=== PATIENT | female | born 1970 | race Caucasian/White ===

== ENCOUNTER 2018-10-19 03:53 | Emergency (ER) | payer OTHER, SELFPAY ==
[2018-10-19 03:55] VITALS: BP 133/88; PULSE 61; RESP 18; TEMP 36.4; O2SAT 97; BMI 19.1
[2018-10-19 03:58] VITALS: RESP 16
--- NOTE | 2018-10-19 05:00 | RAD_ITS ---
HISTORY: patient states her dogs jumped onto right foot, swelling and pain around 5th toe COMPARISON: None FINDINGS: XR right foot 3 views No fracture, dislocation, or bony abnormality. Joint spaces are preserved. Soft tissue swelling of the fifth toe including swelling overlying the fifth MTP joint. No radiopaque foreign body. The plantar arch is maintained. RAD/Foot min 3 Views IMPRESSION: 1. No fracture or acute osseous abnormality. 2. Soft tissue swelling of the fifth toe and fifth MTP joint region at 0537 Reported and signed by: Yonas Smith MD Electronically Signed: Yonas Smith, at 5:36 EDT Tel , Service support ,
--- NOTE | 2018-10-19 05:59 | ED.VISSUMM ---
- ER Visit Summary Date of Service: 10/19/18 Chief Complaint: Right foot pain History of Present Illness: The patient is a 48 F who presents with pain in the right foot. She attributes this to dogs having repetitively stepped in the same spot on her right foot. She also noted some redness between her fourth and fifth toes 3 days ago. She is on Suboxone. She denies injecting anything into her feet. No systemic symptoms such as fevers nausea vomiting. Physical Examination: Afebrile normal vitals There does appear to be an abscess at the right foot between the fourth and fifth digits no drainage mild surrounding erythema able to wiggle her toes without pain no foot tenderness brisk cap refill Test Results: Foot x-ray shows no fracture there is some soft tissue swelling Emergency Department Course and Treatment: Incision and drainage was performed but was very poorly tolerated due to pain. Even just with placing the needle prior to injection of anesthetic the patient complained of severe pain. I was only able to place one half of the cc before she has been stopped. She then states she did have some anesthesia and I was able to make a stab incision with a #11 blade and there was gross purulent drainage. I was able to express most of this however again she asked that I stop due to pain. At this time x-rays were normal she does not have any significant associated cellulitis she is not septic. She will be treated with Keflex and Bactrim and referred to podiatry. I stressed the importance of follow-up and she does understand to return for new or worsening symptoms. Treatment Plan: [] Disposition: Discharge Impression: Foot abscess This note was generated with [employer] dictation software. It may contain incorrect words, spelling, and punctuation that were not noted in review of the chart prior to signing ED Disposition - Plan for ED Patient: Referrals: Abdi Montes [Primary Care Provider] -
--- NOTE | 2018-10-19 06:02 | ED.DEP ---
ED Disposition - Plan for ED Patient: Instructions: ED Abscess IandD Prescriptions: Cephalexin [Keflex] 500 mg PO Q6 #40 cap Smz/Tmp Ds [Bactrim Ds] 1 tab PO BID #14 tab Referrals: Abdi Montes [Primary Care Provider] - Amy Lynn DPM [STAFF PHYSICIAN] -
[2018-10-19 06:19] VITALS: BP 129/89; PULSE 62; RESP 16; O2SAT 98
== END 2018-10-19 06:20 | disposition home or self-care (01) ==
PROVIDERS: Emergency Provider Emergency Medicine; Family Provider Family Medicine; PCP Family Medicine
DX: L02.611 Cutaneous abscess of right foot (principal); Z72.0 Tobacco use
CPT/HCPCS: 10060; 73630; 99282

== ENCOUNTER 2020-04-22 18:21 | Outpatient (RCR) | payer OTHER, SELFPAY | END 2020-04-22 19:00 | disposition home or self-care (01) | LOC: PT 18:21 | PROVIDERS: PCP Family Medicine; Referring Provider Orthopaedic Surgery; Visit Provider Orthopaedic Surgery | DX: S33.5XXD Sprain of ligaments of lumbar spine, subsequent encounter (principal) ==

== ENCOUNTER 2023-03-09 12:38 | Emergency (ER) | payer BC, SELFPAY ==
[2023-03-09 12:40] VITALS: BP 104/66; PULSE 81; RESP 18; TEMP 35.8; O2SAT 100
--- NOTE | 2023-03-09 14:39 | ED.VIS.BACK ---
HPI History of Present Illness Chief Complaint: Back Detail of Chief Complaint: Worsening back pain Informant: patient Onset/Context/Timing Onset: Days Context: Sudden Onset Chronic pain exacerbated by: Movement, and detailed HPI narrative Injury: other (Patient states she got up from the sofa when the pain started) Timing: Continuous Quality: Dull and Aching Location: Lumbar Current Severity: Mild Maximum Severity: Severe Worsened by: improves with Movement, Ambulation, Bending and Lifting Relieved by: Nothing Associated Symptoms Associated Symptoms: - (Patient denies saddle paresthesia or anesthesia. She has had a significant weight loss over the past 30 days, 17 pounds); Negative for Numbness, Tingling, Radiation to Right Leg, Radiation to Left Leg, Fever, Abdominal Pain, Dysuria, Unable to Ambulate, Unable to Transfer, Urinary Retention, Urinary Incontinence, Constipation or Fecal Incontinence Narrative Narrative: Patient is a 52-year-old woman who was a 2 pack/day smoker until 1.5 years ago when she switched to vaping. She started smoking at the age of 14. She presents with acute on chronic back pain. She states she got up from the sofa and began to have severe pain. The pain is located lower back. She denies fever, chills night sweats. She does endorse weight loss. She had a 17 pound weight loss over the past 30 days. She also has noted some lumps on the back of her neck. She denies headache, visual, ocular auditory symptoms. She denies cardiac respiratory symptoms. She has had less bowel movements. She denies change in color of her urine or stool. She states she has no appetite and suspect this is the reason why she has had infrequent bowel movements. She denies recent dental procedure or any type of procedure. Patient is in pain management. She is present on gabapentin and Suboxone. She denies foot drop. Denies buckling of her knees going up or down steps. Prior similar symptoms: No Recent Illness/Hospitalization: No [facility] Medical History (Updated 03/09/23 @ 16:[address] Nemesio Freire MD) Anxiety Home Medications acetaminophen 325 mg tablet (Tylenol) 325 mg PO ONCE PRN 09/01/20 [History Last Taken Unknown] alprazolam 0.5 mg tablet (Xanax) 0.5 mg PO DAILY 09/01/20 [History Last Taken Unknown] buprenorphine HCl 8 mg sublingual tablet 8 mg sublingual DAILY 09/01/20 [History Last Taken Unknown] gabapentin 600 mg tablet 600 mg PO TID 09/01/20 [History Last Taken Unknown] naproxen 500 mg tablet 500 mg PO BID #20 tabs 03/09/23 [Rx Last Taken Unknown] Allergy/AdvReac Type Severity Reaction Status Date / Time NSAIDS (Non-Steroidal Allergy Other Verified 03/09/23 12:39 Anti-Inflamma Opioids - Morphine Analogues AdvReac Other Verified 03/09/23 12:39 Family History Mother Hypertension Myocardial infarction, Onset Age: 76 Father Hypertension Colon cancer, Onset Age: 56 Sister Cancer, Onset Age: 46 unknown Surgical History S/P ALONZO (total abdominal hysterectomy) Tubal ligation status Social History Smoking Status: Current every day smoker tobacco type: cigarettes alcohol intake: never substance use type: marijuana caffeine: Yes what type of physical activity do you participate in: walking seatbelt use: always do you feel safe at home: Yes additional social history: - [place] ROS ROS ED Constitutional Constitutional ED: Reports weight loss; Denies chills, fever(s) or subjective Eyes Eyes: Denies blurry vision, change in vision or diplopia ENT ENT ED: Denies ear pain, rhinorrhea or sore throat Cardiovascular Cardiovascular: Denies chest pain, orthopnea, palpitations, paroxysmal nocturnal dyspnea or racing heartbeat Respiratory/Chest Respiratory/Chest: Denies dyspnea, dyspnea on exertion, orthopnea or paroxysmal nocturnal dyspnea Gastrointestinal Gastrointestinal: Reports constipation; Denies abdominal pain, diarrhea, melena, nausea or vomiting Genitourinary Genitourinary ED: Denies dysuria, hematuria or urinary frequency Musculoskeletal Musculoskeletal: Reports back pain; Denies arthralgias, myalgias or neck pain Integumentary Denies rash Neurologic Neurologic: Denies headache(s) or paresthesias Psychiatric Psychiatric: Denies anxiety Endocrine Endocrinology: Denies cold intolerance or heat intolerance Hematologic/Lymphatic Hematologic/Lymphatic: Denies easy bleeding or easy bruising EXAM Physical Exam Const Vital Signs: 03/09/23 12:40 Temperature 96.4 F L Temperature Source Temporal Pulse Rate 81 Respiratory Rate 18 Blood Pressure 104/66 Blood Pressure Mean 78 Pulse Ox 100 Oxygen Delivery Method Room Air Positive well developed and cachectic Constitutional Narrative: Patient appears ill but not toxic. Does not appear in discomfort. She does experience discomfort with movement of her bed to reposition her for proper back exam. General Appearance ED: well developed and cachectic; Negative for pallor Nutritional Appearance: cachectic HEENT Reports dry mucous membranes HEENT Narrative: Poor dentition. Head is atraumatic normocephalic. Ears are normal. Nares are patent. Posterior pharynx unremarkable. Mouth ED: Yes dry mucous membranes Mouth: dry mucous membranes Eyes PERRL and EOMs intact bilaterally General Eye ED: Negative for pale conjunctiva or scleral icterus Neck No no lymphadenopathy, supple and no JVD Neck Narrative: Patient has an irregular shaped firm hard nontender posterior cervical mass/node. There is no supraclavicular nodes or axillary nodes noted. Patient does not do routine breast exams and has not noted any asymmetry of her breast. Resp normal respiratory effort and clear to auscultation bilaterally Cardio regular rate, regular rhythm, S1 normal heart sound, S2 normal heart sound and no murmurs GI normal to inspection, nondistended, normoactive bowel sounds, soft to palpation, non-tender, non-distended and no masses Back/Spine normal to inspection; Negative for no thoracic nor lumbar tenderness Back/Spine Narrative: Straight leg test on the right causes pain on the left and straight leg test on the left causes pain on the right that is in the sciatic nerve distribution. DTR at the patella ankle are 3+. The reflexes are 3+ in the upper extremity as well. EHL is intact. 5/5 strength plantar dorsiflexion of the foot. Negative clonus Babinski sign. DP and PT pulse are palpable. Patient does have hair on her toes. She has normal sensation over L3, L4, L5 and S1 dermatome. General Back: Negative for CVA tenderness Cervical Spine: Negative for cervical spine tenderness Lumbar Spine / Lower Back: ROM limited Extremity normal to inspection and no clubbing, cyanosis or edema General Extremety ED: Negative for edema General Extremity: Negative for edema Neuro oriented x3 and no sensory deficits noted Sensorium / Orientation: alert Motor Exam: strength 5/5 throughout Deep Tendon Reflexes: Rt Patellar (L4): 3+, Lt Patellar (L4): 3+, Rt Ankle (S1): 3+ and Lt Ankle (S1): 3+ Deep Tendon Reflexes Back: Rt Patellar (L4): 3+, Lt Patellar (L4): 3+, Rt Ankle (S1): 3+ and Lt Ankle (S1): 3+ Plantar Reflex: Downgoing: bilateral Psych mental status grossly normal Skin no rashes or lesions noted and no wounds General Skin Exam: Negative for jaundice or pallor MDM MDM MDM Narrative Medical decision making narrative: With 80-year pack history of smoking unintentional weight loss palpable mass posterior neck on the left side atraumatic back pain concern for malignancy is #1 on the differential. There is a muscular component. Patient has positive crossover test right and left however negative straight leg test right and left. Blood work was obtained which included CBC to assess for anemia and as well as white count differential. Comprehensive metabolic panel to assess alkaline phosphatase, calcium and renal function. ESR was obtained. X-rays were obtained since she has had no x-rays in many years. Presently patient does not have a physician. Because of patient's opiate addiction and Suboxone she was treated with ketorolac for her pain. History & Record Review Additional record(s) reviewed:: Prior outpatient record and Prior ED visit (There was an ER visit 2019 and 2017 for minor issues. Outside record from 2017 was reviewed and was for a preemployment physical.) Lab Data Attestation: I reviewed the patient's lab results. Lab results narrative: Patient has mild anemia with normal indices. White count is normal. Sed rate is less than 1. Competence metabolic panel is normal and specifically calcium and alkaline phosphatase. Labs: Laboratory Results - last 24 hr 03/09/23 15:04 WBC 6.6 RBC 3.73 L Hgb 11.6 L Hct 34.9 L MCV 93.6 MCH 31.1 MCHC 33.2 RDW Std Deviation 43.6 RDW Coeff of Jose 12.6 Plt Count 201 MPV 10.1 Immature Gran % (Auto) 0.300 Neut % (Auto) 67.9 Lymph % (Auto) 23.4 [place] % (Auto) 6.6 Eos % (Auto) 0.9 Baso % (Auto) 0.9 Absolute Neuts (auto) 4.5 Absolute Lymphs (auto) 1.55 Nucleated RBC % 0 ESR < 1 Sodium 136 Potassium 4.0 Chloride 103 Carbon Dioxide 29.0 Anion Gap 4 L BUN 5 L Creatinine 0.76 Est GFR (MDRD) Af Amer 103 Est GFR (MDRD) Non-Af 85 BUN/Creatinine Ratio 6.6 L Glucose 93 Calcium 8.9 Total Bilirubin 0.20 AST 13 L ALT 14 Alkaline Phosphatase 52 Total Protein 6.7 Albumin 3.8 Globulin 2.9 Albumin/Globulin Ratio 1.3 Radiography Chest X-Ray - ED: Read by ED Physician (Three-view x-ray of the LS-spine reveals degenerative changes and specifically L4-5 L5-S1. There is no lytic or blastic lesions noted. There is no spondylolisthesis or spondylosis noted. This was independently reviewed and interpreted by me.) Diagnostic Testing: Clinical Impression(s) from Imaging Studies Lumbar Spine X-Ray 03/09/23 15:18 IMPRESSION: Degenerative changes of the spine, as detailed above. Straightening of the normal lumbar lordosis. Electronically Signed: Freddy Venegas MD at 15:38 EDT , Treatment and Re-Evaluation Narrative: Patient was reassessed at 1645. Patient looks much better. She reports her pain is much better. Will discharge to home on anti-inflammatories and she has no contraindication and is in pain management. She was referred to Dr. Ida Sr since she does not have a physician. Discharge Plan Triage Chief Complaint: Back ED Provider: Nemesio Freire Dx/Rx/DC Orders Clinical Impression: Acute exacerbation of chronic low back pain, Unintentional weight loss of more than 10 pounds in 90 days, DDD (degenerative disc disease), lumbosacral, Posterior cervical lymphadenopathy Instructions: Lymphadenopathy, ED Degenerative Disk Disease Prescriptions: New naproxen 500 mg tablet 500 mg PO BID Qty: 20 0RF No Action buprenorphine HCl 8 mg tablet, sublingual 8 mg SUBLINGUAL DAILY gabapentin 600 mg tablet 600 mg PO TID acetaminophen [Tylenol] 325 mg tablet 325 mg PO ONCE PRN alprazolam [Xanax] 0.5 mg tablet 0.5 mg PO DAILY Stand Alone Forms: ED Work / School Excuse Primary Care Provider: Care Physician,No Primary Referrals: Abdi Montes MD [Non-Staff] - Ida Sr MD [Med Staff - [employer]] - 1-2 Weeks Activity Restrictions/Additional Instructions: You have been referred to Dr. Ida Sr since he did not have a physician. Recommend calling for appointment to further investigate the palpable lymph nodes noted in the back of your neck and to determine the cause of your unintentional weight loss Disposition Disposition: Home, Self Care
[2023-03-09 15:14] LABS: Absolute Lymphocyte Count 1.55 X10^3/uL (0.83-4.51); Absolute Neutrophil Count 4.5 X10^3/uL (2.0-7.7); Basophil# 0.06 X10^3/uL; Basophil% 0.9 % (0-1); Eosinophil# 0.06 X10^3/uL; Eosinophils% 0.9 % (0-5); Hematocrit 34.9 % (37-47); Hemoglobin 11.6 g/dL (12.0-15.0); Lymphocyte # 1.55 X10^3/ul (0.83-4.51); Lymphocyte % 23.4 % (19-41); Mean Corp Hgb Conc 33.2 g/dL (32-36); Mean Corpuscular Hgb 31.1 pg (27.0-32.0); Mean Corpuscular Volume 93.6 fL (81-99); Mean Platelet Vol. 10.1 fl (6.2-12.0); Monocyte# 0.44 X10^3/uL; Monocyte% 6.6 % (0-10); NRBC Flagged by Analyzer 0 % (0-5); Neutrophil % 67.9 % (47-70); Platelet Count 201 K/mm3 (150-450); RBC Distribution Width CV 12.6 % (11.6-14.6); RBC Distribution Width SD 43.6 fl (35.1-43.9); Red Blood Count 3.73 M/mm3 (4.2-5.4); White Blood Count 6.6 K/mm3 (4.4-11.0)
[2023-03-09] MEDS: Ketorolac 15 MG/ML Vial IV (15:16)
--- NOTE | 2023-03-09 15:18 | RAD_ITS ---
STUDY: X-RAY - LUMBAR SPINE REASON FOR EXAM: Female, 52 years old. Atraumatic back pain with significant weight loss TECHNIQUE: 3 view(s) of the lumbar spine were obtained. COMPARISON: None FINDINGS: There is straightening of the normal lumbar lordosis. There is no substantial scoliosis. There is a normal alignment of the vertebrae. Moderate degree of disc space narrowing at the L5-S1 level with the spondylosis. Disc space narrowing at the L4-L5 level. The soft tissue structures are unremarkable. RAD/Lumbar Spine 2 or 3 Views IMPRESSION: Degenerative changes of the spine, as detailed above. Straightening of the normal lumbar lordosis. Electronically Signed: Freddy Venegas MD at 15:38 EDT ,
[2023-03-09 15:28] LABS: Erythrocyte Sedimentation Rate < 1 mm/hr (0-30)
[2023-03-09 15:38] LABS: ALB/GLOB Ratio 1.3 RATIO (0.9-2.4); AST(SGOT) 13 U/L (15-37); Alanine Aminotransfer ALT/SGPT 14 U/L (13-56); Albumin, Serum 3.8 g/dL (3.2-5.0); Alkaline Phosphatase 52 U/L (45-117); Anion Gap 4 (5-15); BUN 5 mg/dL (7-18); BUN/Creat Ratio 6.6 RATIO (10-20); Calcium,Total 8.9 mg/dL (8.5-10.1); Chloride 103 mmol/L (98-107); Creatinine, Serum 0.76 mg/dL (0.55-1.02); EST Glomerular Filtration Rate 85 mL/min (>60); Est Glom Filt Rate - Afr Amer 103 mL/min (>60); Globulin 2.9 g/dL (2.2-4.2); Glucose 93 mg/dL (74-106); Protein, Total 6.7 g/dL (6.4-8.2); Sodium Level 136 mmol/L (136-145)
== END 2023-03-09 17:08 | disposition home or self-care (01) ==
PROVIDERS: Emergency Provider Emergency Medicine; Visit Provider Emergency Medicine
DX: M51.37 Other intervertebral disc degeneration, lumbosacral region (principal); R59.0 Localized enlarged lymph nodes; X58.XXXA Exposure to other specified factors, initial encounter; G89.29 Other chronic pain; R63.4 Abnormal weight loss; F17.290 Nicotine dependence, other tobacco product, uncomplicated
CPT/HCPCS: 72100; 80053; 85025; 85652; 96374; 99283; A4216

== ENCOUNTER → 2023-05-19 | Outpatient (CLI) | payer BC, SELFPAY ==
[2023-05-19 13:18] LABS: T4 Free Direct 0.95 ng/dL (0.76-1.46); Thyroid Stim Hormone (TSH) 0.96 uIU/mL (0.358-3.74)
== END | disposition home or self-care (01) ==
LOC: BIMLAB 09:35
PROVIDERS: PCP Internal Medicine; Referring Provider Internal Medicine; Visit Provider Internal Medicine
DX: Z13.29 Encounter for screening for other suspected endocrine disorder (principal)
CPT/HCPCS: 36415; 84439; 84443

== ENCOUNTER 2023-06-16 16:17 | Emergency (ER) | payer BC, SELFPAY ==
[2023-06-16 16:18] VITALS: BP 100/58; PULSE 60; RESP 12; TEMP 35.7; O2SAT 95; BMI 17.9
--- NOTE | 2023-06-16 16:50 | EX.ED.DYSGE1 ---
HPI <DOTTIE Tenorio - Last Filed: 06/16/23 19:04> History of Present Illness Chief Complaint: Lower Extremity Injury Narrative Narrative: Patient is a 52-year-old female with history of chronic back pain, tobacco use who presents to the emergency department with ongoing pain to the left foot. Patient states she wears steel toed boots, she has been seeing a switchboard inspector Dr. Solis. There has been concerns about vascular insufficiency to this foot. Patient is been having some color change in her toes. She is not diabetic. She states that she is been working quite a bit and has been having worsening pain to her left foot PFSH <DOTTIE Tenorio - Last Filed: 06/16/23 19:04> [facility] Medical History (Updated 06/16/23 @ 19:00 by DOTTIE Tenorio) Acute arthritis Allergies Anxiety Back problem Drug abuse Hives Irritable bowel Lumbar radiculopathy Rheumatoid arthritis Screening for thyroid disorder Ulcer of abdomen wall Home Medications gabapentin 600 mg tablet 600 mg PO TID 09/01/20 [History Last Taken Unknown] buprenorphine 8 mg-naloxone 2 mg sublingual film (Suboxone) 2 film buccal Q24H 05/19/23 [History Last Taken Unknown] clopidogrel 75 mg tablet (Plavix) 75 mg PO DAILY #30 tabs 06/16/23 [Rx Last Taken Unknown] rosuvastatin 10 mg tablet 10 mg PO DAILY #30 tabs 06/16/23 [Rx Last Taken Unknown] Allergy/AdvReac Type Severity Reaction Status Date / Time animal dander Allergy Mild runny nose Verified 06/16/23 16:18 NSAIDS (Non-Steroidal Allergy Other Verified 06/16/23 16:18 Anti-Inflamma Opioids - Morphine Analogues AdvReac Other Verified 06/16/23 16:18 Family History Mother Hypertension Myocardial infarction, Onset Age: 76 Asthma Allergies Cancer Kidney disease Arthritis Father Hypertension Colon cancer, Onset Age: 56 Alcoholism Arthritis Cancer Sister Cancer, Onset Age: 46 unknown Arthritis Aunt Auto immune neutropenia Bleeding disorder Cancer Grandfather Heart disease Surgical History S/P ALONZO (total abdominal hysterectomy) Tubal ligation status Social History Smoking Status: Current every day smoker tobacco type: cigarettes alcohol intake: current substance use type: marijuana caffeine: Yes what type of physical activity do you participate in: walking seatbelt use: always do you feel safe at home: Yes additional social history: - [place] [facility] <DOTTIE Tenorio - Last Filed: 06/16/23 19:04> ROS ED ROS Narrative Constitutional: Negative for fever, chills, weight loss, weakness Eyes: Negative for vision loss, vision change, double vision ENT: Negative for any sore throat, ear pain, congestion Cardiovascular: Negative for any chest pain, tightness, palpitations Respiratory: Negative for any cough, sputum production, hemoptysis, dyspnea, dyspnea on exertion, orthopnea Gastrointestinal: Negative for any abdominal pain, nausea, vomiting, diarrhea, constipation, blood in stool, blood in vomit : Negative for any urinary frequency, dysuria, retention, blood in urine Muscle skeletal: Negative for any myalgias, arthralgias, neck pain, back pain. Positive for left foot pain Neurological: Negative for any headache, syncope, numbness or tingling, dizziness Skin: Negative for any rashes, lumps, itching, abrasions, lacerations Psychiatric: Negative for any depression, anxiety, stress, suicidal ideation, homicidal ideation Hematologic: Negative for any easy bruising, excessive bruising, easy bleeding Allergies: Negative for any eczema, hives, rash EXAM <DOTTIE Tenorio - Last Filed: 06/16/23 19:04> Physical Exam Narrative Exam Narrative: Vital signs reviewed. HEET: Head normocephalic atraumatic, TMs clear bilaterally. Posterior pharynx is clear, moist mucous membranes. Nares clear bilaterally. Neck: Supple with no lymphadenopathy or tenderness. No signs of meningismus. Cardiac: Regular rate and rhythm no murmurs gallops or rubs, equal peripheral pulses bilaterally. Respiratory: Lungs clear to auscultation bilaterally. No chest tenderness. Abdomen: Soft, nontender, nondistended. No abdominal bruit or pulsatile masses. No hepatosplenomegaly Extremities: No peripheral edema, no signs of gross trauma or deformity. Active full range of motion of all extremities. Patient has palpable pulses to both pedal posttibial. I was also able to confirm them with the Doppler. Patient's fourth toe on the left foot does appear to be ecchymotic. The entire foot is warm to the touch, there is no signs or symptoms of cellulitis. Neuro: Cranial nerves II through XII intact, no focal neurological deficits. Skin: Clean dry and intact with no rash, purpura, petechiae, vesicles or pustules. Backs/flank: No CVA tenderness, no midline spinal tenderness, no deformity. Psych: Normal mood and affect. No SI, HI or acute psychosis. Const Vital Signs: 06/16/23 16:18 Temperature 96.2 F L Temperature Source Temporal Pulse Rate 60 Respiratory Rate 12 Blood Pressure 100/58 L Blood Pressure Mean 72 Pulse Ox 95 Oxygen Delivery Method Room Air Positive well nourished and well developed General Appearance ED: well developed <Dr. Estefani Ceballos DO - Last Filed: 06/16/23 22:48> Physical Exam Const Vital Signs: 06/16/23 16:18 Temperature 96.2 F L Temperature Source Temporal Pulse Rate 60 Respiratory Rate 12 Blood Pressure 100/58 L Blood Pressure Mean 72 Pulse Ox 95 Oxygen Delivery Method Room Air MDM <DOTTIE Tenorio - Last Filed: 06/16/23 19:04> [facility] Lab Data Labs: Laboratory Results - last 24 hr 06/16/23 17:25 WBC 8.6 RBC 4.00 L Hgb 12.3 Hct 38.6 MCV 96.5 MCH 30.8 MCHC 31.9 L RDW Std Deviation 44.3 H RDW Coeff of Jose 12.6 Plt Count 212 MPV 9.5 Immature Gran % (Auto) 0.200 Neut % (Auto) 64.5 Lymph % (Auto) 23.4 Faulk % (Auto) 9.0 Eos % (Auto) 2.0 Baso % (Auto) 0.9 Absolute Neuts (auto) 5.5 Absolute Lymphs (auto) 2.01 Nucleated RBC % 0 Sodium 138 Potassium 4.4 Chloride 105 Carbon Dioxide 32.0 Anion Gap 1 L BUN 8 Creatinine 0.80 Estim Creat Clear Calc 69.61 Est GFR (MDRD) Af Amer 96 Est GFR (MDRD) Non-Af 80 BUN/Creatinine Ratio 10.0 Glucose 92 Calcium 8.5 Radiography Diagnostic Testing: Clinical Impression(s) from Imaging Studies Foot X-Ray 06/16/23 17:15 IMPRESSION: Normal x-ray examination of the foot. Electronically Signed: Conrado Fry MD at 17:44 EST , Abdomen/Pelvis CTA 06/16/23 17:40 IMPRESSION: Moderate stenosis distal aorta otherwise negative CTA abdomen and pelvis and legs. Electronically Signed: Conrado Fry MD at 18:43 EST , Treatment and Re-Evaluation :: Patient appears generally well, patient appears nontoxic, vital signs are stable. Patient presents to the emergency department left-sided foot pain, concern for color change in her toes. Differential diagnosis includes vascular insufficiency, fractured toe, cellulitis. Patient's foot is warm to the touch, there is no evidence of any trauma. Patient does have some color change to the left fourth toe. I was able to feel pulses both to the pedal as well as posttibial. The foot is warm, no evidence of discoloration. Patient will receive a CTA of the lower extremities with runoffs. As well as a foot x-ray. All radiologic examinations were read, reviewed by the emergency department attending. From these reads, a plan of care will be put in place. Patient's x-ray of the left foot shows no acute process. Patient's laboratory values showed normal CBC, patient's chemistries were unremarkable. Patient's CTA of the abdomen pelvis with runoffs shows moderate stenosis distal aorta. I did speak with vascular regarding this. Recommendation is to place the patient on Plavix, baby aspirin, a statin, the patient will then follow-up in the next couple weeks. I will send the patient's chart to vascular. I spoke with the patient at length, she will try to decrease her tobacco use. Patient is stable for discharge <Dr. Estefani Ceballos, DO - Last Filed: 06/16/23 22:48> [facility] Narrative Medical decision making narrative: I have personally performed a face to face assessment of the patient and have reviewed the JOVANA Note. I performed a substantive portion of the visit including all aspects of the following. My murray findings include: History is [patient presents with pain to her left foot and discoloration of her fourth and fifth toes. Patient tells me that she initially noticed discoloration to her fifth toe this last summer. She works at [employer] and wears steel toed shoes. She apparently went to emergency room in [place] and was told that it was just bruised. Patient states that a couple weeks ago the fourth toe started turning purple also. Patient saw switchboard inspector who apparently was given to give her another referral because he was worried about a blockage in her leg and wanted to order a CT scan of her leg. Patient having a lot of discomfort to her foot. Patient was a smoker but quit 2 years ago. Patient continues to vape.] Exam is [ABHAY ROSENBAUM. Cranial nerves II through XII grossly intact. TMs clear. Mucous membranes moist. No adenopathy. Cardiovascular-regular rate and rhythm without murmur or ectopy Lungs-clear to auscultation, chest wall stable without crepitus or subcu emphysema Abdomen-normoactive bowel sounds, soft, nontender, no rebound or rigidity, no peritoneal signs. Extremities-intact ?4. Left foot-patient has normal dorsal pedal and posterior tibial pulses. Patient has normal popliteal pulses. The fourth toe is ecchymotic and discolored and tender to palpation. Patient also has some erythema of the fifth toe. Patient has tenderness to the MTP joints diffusely in the pad of the foot. Cap refill is less than 3 seconds.] Medical Decison Making [patient had CTA of abdomen pelvis with runoffs and basic labs. CTA shows moderate stenosis of the aorta and mild stenosis of the left iliac artery. No stenosis noted in the legs. We discussed case with vascular surgeon on-call Dr. Cummings who asked that we start patient on Plavix as well as aspirin and a statin. He would be happy to see patient in follow-up as an outpatient.] Other additions or changes: [None] Lab Data Labs: Laboratory Results - last 24 hr 06/16/23 17:25 WBC 8.6 RBC 4.00 L Hgb 12.3 Hct 38.6 MCV 96.5 MCH 30.8 MCHC 31.9 L RDW Std Deviation 44.3 H RDW Coeff of Jose 12.6 Plt Count 212 MPV 9.5 Immature Gran % (Auto) 0.200 Neut % (Auto) 64.5 Lymph % (Auto) 23.4 Faulk % (Auto) 9.0 Eos % (Auto) 2.0 Baso % (Auto) 0.9 Absolute Neuts (auto) 5.5 Absolute Lymphs (auto) 2.01 Nucleated RBC % 0 Sodium 138 Potassium 4.4 Chloride 105 Carbon Dioxide 32.0 Anion Gap 1 L BUN 8 Creatinine 0.80 Estim Creat Clear Calc 69.61 Est GFR (MDRD) Af Amer 96 Est GFR (MDRD) Non-Af 80 BUN/Creatinine Ratio 10.0 Glucose 92 Calcium 8.5 Radiography Diagnostic Testing: Clinical Impression(s) from Imaging Studies Foot X-Ray 06/16/23 17:15 IMPRESSION: Normal x-ray examination of the foot. Electronically Signed: Conrado Fry MD at 17:44 EST Reading Location ID and State: [address] [place] [address] Tel , Service support , Abdomen/Pelvis CTA 06/16/23 17:40 IMPRESSION: Moderate stenosis distal aorta otherwise negative CTA abdomen and pelvis and legs. Electronically Signed: Conrado Fry MD at 18:43 EST Reading Location ID and State: [address] [place] [address] Tel , Service support , Discharge Plan Triage Chief Complaint: Lower Extremity Injury ED Midlevel Provider: Corky Plummer ED Provider: Estefani Ceballos Dx/Rx/DC Orders Clinical Impression: Acute foot pain, Aortic stenosis, Arterial vascular disease Instructions: Quitting Smoking, Aortic Stenosis, Medicines for Heart Disease Prescriptions: New clopidogrel [Plavix] 75 mg tablet 75 mg PO DAILY Qty: 30 2RF rosuvastatin 10 mg tablet 10 mg PO DAILY Qty: 30 2RF No Action gabapentin 600 mg tablet 600 mg PO TID buprenorphine-naloxone [Suboxone] 8-2 mg film 2 film buccal Q24H Rx Instructions: place 1 film on inside of (each) cheek Stand Alone Forms: ED Work / School Excuse Primary Care Provider: Julisa Johnson Referrals: Julisa Johnson MD [Primary Care Provider] - Naveen Cummings MD [Med Staff - Active Staff] - Activity Restrictions/Additional Instructions: Along with the 2 prescriptions, you will also take 81 mg aspirin that you are getting [id number]. Follow-up with vascular. You have his information Disposition Disposition: Home, Self Care Discharge Date/Time: 06/16/23 19:18
--- NOTE | 2023-06-16 17:15 | RAD_ITS ---
STUDY: X-RAY - LEFT FOOT CLINICAL: Female, 52 years old. foot pain TECHNIQUE: 3 view(s) of the foot. COMPARISON: None. FINDINGS: Normal talus, calcaneus, and tarsal bones. Normal visualized subtalar, talonavicular, calcaneocuboid, tarsal and tarsometatarsal articulations. Normal metatarsi. Normal metatarsophalangeal joint of the great toe. Normal tibial and fibular sesamoid bones. Normal interphalangeal joint of the great toe. Normal phalanges of the great toe. Normal second through fifth metatarsophalangeal joints. Normal interphalangeal joints and phalanges of the lesser toes. The soft tissue structures are unremarkable. RAD/Foot min 3 Views IMPRESSION: Normal x-ray examination of the foot. Electronically Signed: Conrado Fry MD at 17:44 EST ,
[2023-06-16 17:34] LABS: Absolute Lymphocyte Count 2.01 X10^3/uL (0.83-4.51); Absolute Neutrophil Count 5.5 X10^3/uL (2.0-7.7); Basophil# 0.08 X10^3/uL; Basophil% 0.9 % (0-1); Eosinophil# 0.17 X10^3/uL; Hematocrit 38.6 % (37-47); Hemoglobin 12.3 g/dL (12.0-15.0); Lymphocyte # 2.01 X10^3/ul (0.83-4.51); Lymphocyte % 23.4 % (19-41); Mean Corp Hgb Conc 31.9 g/dL (32-36); Mean Corpuscular Hgb 30.8 pg (27.0-32.0); Mean Corpuscular Volume 96.5 fL (81-99); Mean Platelet Vol. 9.5 fl (6.2-12.0); Monocyte# 0.77 X10^3/uL; NRBC Flagged by Analyzer 0 % (0-5); Neutrophil # 5.53 X10^3/uL (2.7-7.7); Neutrophil % 64.5 % (47-70); Platelet Count 212 K/mm3 (150-450); RBC Distribution Width CV 12.6 % (11.6-14.6); RBC Distribution Width SD 44.3 fl (35.1-43.9); White Blood Count 8.6 K/mm3 (4.4-11.0)
--- NOTE | 2023-06-16 17:40 | CT_ITS ---
STUDY: CTA OF THE ABDOMINAL AORTA AND BILATERAL LOWER EXTREMITIES REASON FOR EXAM: Female, 52 years old. Leg pain RADIATION DOSAGE (If Supplied By Facility): CTDIvol = ( 8.42 ) mGy, DLP = ( 915.58 ) mGycm TECHNIQUE: Axial CT angiography multi-detector data acquisition was obtained from the diaphragm to the feet following intravenous administration of IV 100mL Isovue-370. Axial images and MIP images were reconstructed from the axial data set. Post-processing of the angiographic images was performed, with multiplanar reformation and 3D reconstruction. Individualized dose optimization techniques were used for this CT. TECHNICAL QUALITY: Good COMPARISON: None. Descriptors of Narrowing: None (0%) Mild (< 50%) Moderate (50-70%) Severe (70-90%) Subtotal/Total Occlusion (90-100%) Non-Evaluable (technically non-diagnostic FINDINGS: Solid and hollow viscus normal. Abdominal aorta: Mixed plaque causes moderate stenosis of the distal aorta and mild stenosis at the origin of the left common iliac artery. Celiac and superior mesenteric arteries: No demonstrated narrowing. Anatomic variant noted. Inferior mesenteric artery: Moderate stenosis at the origin. Right renal artery(arteries): No demonstrated narrowing. Left renal artery(arteries): No demonstrated narrowing. Right common iliac artery: No demonstrated narrowing. Right external iliac artery: No demonstrated narrowing. Right internal iliac artery: No demonstrated narrowing. Left common iliac artery: No demonstrated narrowing. Left external iliac artery: No demonstrated narrowing. Left internal iliac artery: No demonstrated narrowing. RIGHT LOWER EXTREMITY Right common femoral artery: No demonstrated narrowing. Right profundus femoris: No demonstrated narrowing. Right superficial femoral: No demonstrated narrowing. Right popliteal artery: No demonstrated narrowing. Right tibioperoneal trunk: No demonstrated narrowing. Right anterior tibial artery: No demonstrated narrowing. Right posterior tibial artery: No demonstrated narrowing. Right peroneal artery: No demonstrated narrowing. LEFT LOWER EXTREMITY Left common femoral artery: No demonstrated narrowing. Left profundus femoris: No demonstrated narrowing. Left superficial femoral: No demonstrated narrowing. Left popliteal artery: No demonstrated narrowing. Left tibioperoneal trunk: No demonstrated narrowing. Left anterior tibial artery: No demonstrated narrowing. Left posterior tibial artery: No demonstrated narrowing. Left peroneal artery: No demonstrated narrowing. CT/CTA Abd w/Runoff W/WO Contrast IMPRESSION: Moderate stenosis distal aorta otherwise negative CTA abdomen and pelvis and legs. Electronically Signed: Conrado Fry MD at 18:43 EST ,
[2023-06-16 17:52] LABS: Anion Gap 1 (5-15); BUN 8 mg/dL (7-18); Calcium,Total 8.5 mg/dL (8.5-10.1); Chloride 105 mmol/L (98-107); EST Glomerular Filtration Rate 80 mL/min (>60); Est Glom Filt Rate - Afr Amer 96 mL/min (>60); Estimated Creatinine Clearance 69.61 ml/min; Glucose 92 mg/dL (74-106); Potassium 4.4 mmol/L (3.5-5.1); Sodium Level 138 mmol/L (136-145)
[2023-06-16] MEDS: Aspirin 81 MG TAB.CHEW PO (19:12)
[2023-06-16] MEDS: Clopidogrel Bisulfate 75 MG Tablet PO (19:12)
== END 2023-06-16 19:18 | disposition home or self-care (01) ==
PROVIDERS: Nurse Practitioner; Emergency Provider Emergency Medicine; PCP Internal Medicine; Visit Provider Emergency Medicine
DX: I73.9 Peripheral vascular disease, unspecified (principal); M06.9 Rheumatoid arthritis, unspecified; M79.672 Pain in left foot; I35.0 Nonrheumatic aortic (valve) stenosis; F17.210 Nicotine dependence, cigarettes, uncomplicated; F12.90 Cannabis use, unspecified, uncomplicated; G89.29 Other chronic pain; M54.9 Dorsalgia, unspecified; M19.90 Unspecified osteoarthritis, unspecified site; F41.9 Anxiety disorder, unspecified; K58.9 Irritable bowel syndrome, unspecified; Z79.899 Other long term (current) drug therapy
CPT/HCPCS: 73630; 75635; 80048; 85025; 99284; Q9967; A4216

== ENCOUNTER → 2023-06-29 | Outpatient (CLI) | payer BC, SELFPAY ==
--- NOTE | 2023-06-29 13:58 | ART_ITS ---
Reason For Study: PVD Procedure A bilateral lower extremity continuous wave Doppler with analog waveform analysis,segmental pressures,and ankle brachial indexes without exercise. Left Segmental Pressures Left brachial= 121mmHg. Left thigh = 102mmHg. Left calf = 120mmHg. Left posterior tibial artery = 103mmHg. Left dorsalis pedis artery = 112mmHg. Left digit = 88 mmHg. The left posterior tibial artery waveforms are biphasic. The left dorsalis pedis waveforms are biphasic. Right Segmental Pressures Right brachial= 122mmHg. Right thigh = 104mmHg. Right calf = 115mmHg. Right posterior tibial artery = 100mmHg. Right dorsalis pedis artery = 107mmHg. Right digit = 81 mmHg. The right posterior tibial artery waveforms are biphasic. The right dorsalis pedis waveforms are monophasic. Indices The right ankle brachial index by the posterior tibial artery is 0.82. The right ankle brachial index by the dorsalis pedis is 0.88. The right digital-brachial index is 0.66. The left ankle brachial index by the posterior tibial artery is 0.84. The left ankle brachial index by the dorsalis pedis is 0.92. The left digital-brachial index is 0.72. VL/Lower Ext Art Exam w/o Exercis Interpretation Summary Right AJAY 0.88, moderate arterial insufficiency. Doppler/PVR waveforms and segm ental pressures reveal [id number] femoral disease Left AJAY 0.92, mild arterial insufficiency. Doppler/PVR waveforms and segmental pressures reveal [id number] femoral disease Ordering Physician: Louie Solis Referring Physician: Julisa Johnson Performed By: aWyne Denny RVT
--- NOTE | 2023-06-29 13:58 | VDLE_ITS ---
Reason For Study: PVD RIGHT LEFT GSV is normal. GSV is normal. CFV is compressible, spontaneous, phasic, CFV is compressible, spontaneous, phasic, competent and demonstrates normal competent, and demonstrates normal augmentation. augmentation. FV is compressible, spontaneous, phasic, FV is compressible, spontaneous, phasic, competent and demonstrates normal competent and demonstrates normal augmentation. augmentation. POP V is compressible, spontaneous, phasic, POP V is compressible, spontaneous, phasic, competent and demonstrates normal competent and demonstrates normal augmentation. augmentation. T/P Trunk is compressible. T/P Trunk is compressible. PTV is compressible. PTV is compressible. RT PerV is compressible. LT PerV is compressible. Procedure This is a venous duplex using B-mode, color flow and spectral Doppler. Exam performed in department. The exam was diagnostic. VL/Venous Duplex US - Carlos Extrem Interpretation Summary Deep veins of the bilateral lower extremities are patent and compressible segme ntally. There is no evidence of bilateral lower extremity deep vein thrombosis. The bilateral great saphenous veins appear patent and compressible segmentally. Ordering Physician: Louie Solis Referring Physician: Julisa Johnson Performed By: Wayne Denny RVT
--- OUTSIDE RECORDS SUMMARY | 2023-06-29 14:19 | XMS RPT_ITS | CCD ---
Author Name Unknown Address [address] [place] [address] Organization [facility] Care Team Providers Care Salon Assistant Name Role Phone Buzz Montes Unavailable [phone] Tiffanie Beasley Unavailable Unavail able Buzz Montes Unavailable Unavailable Buzz Montes Unavailable Unavailable BUZZ MONTES Unavailable Unavailable DONTAE RANKIN Unavailable Unavailable DONTAE RANKIN Unavailable Unavailable BUZZ MONTES Unavailable Unavailable Buzz Montes Primary Care Provider Tiffanie Beasley Unavailable Unavail able Tiffanie Beasley Unavailable Tiffanie Beasley Unavailable [phone] Angi Schmidt Primary Care Provider Tiffanie Beasley Unavailable ANGI SCHMIDT Attending Unavailable SPRING, ANGI MTaylor Primary Care Unavailable SPRING, ANGI M. Referring Unavailable SPRING, ANGI M. Admitting Unavailable SPRING, ANGI MTaylor Primary Care Unavailable ABHAY KEYES Attending Unavail able SPRING, ANGI MTaylor Attending Unavailable SPRING, ANGI MTaylor Primary Care Unavailable SPRING, ANGI MTaylor Attending Unavailable SPRING, ANGI M. Primary Care Unavailable SPRING, ANGI M. Primary Care Unavailable SPRING, ANGI MTaylor Attending Unavailable SPRING, ANGI MTaylor Attending Unavailable SPRING, ANGI M. Primary Care Unavailable SPRING, AGNI MTaylor Attending Unavailable SPRING, ANGI M. Primary Care Unavailable SPRING, ANGI MTaylor Primary Care Unavailable SPRING, ANGI MTaylor Referring Unavailable SPRINGANGI Admitting Unavailable ZACHARY CHIN Attending Unavailable ANGI SCHMIDT Primary Care Unavailable ANGI SCHMIDT Attending Unavailable SPRINGANGI Primary Care Unavailable CHARLETTE CESPEDES Attending Unavailable Spring, Angi Trevizo Primary Care Provider Miranda Jensen PA-C Primary Care Provider U TIFFANIE Ramirez Referring Unavail able NO, PHYSICIAN Primary Care Unavailable TIFFANIE BEASLEY Attending Unavail able NO, PHYSICIAN Primary Care Unavailable TIFFANIE BEASLEY Admitting Unavail able YUMIKO WHITE Attending Unavailable Allergies Allergy Classification Reported Allergen(s) Allergy Type Date of Onset Reaction(s) Facility (14 sources) NSAIDs; Translations: [NSAIDS (NON-STEROIDAL ANTI-INFLAMMATOR Y DRUG)] Propensity to adverse reactions to drug 9 [facility] (14 sources) Opioids - Morphine Analogues; Translations: [OPIOIDS - MORPHINE ANALOGUES] Propensity to adverse reactions to drug 9 [facility] (14 sources) venlafaxine; Translations: [VENLAFAXINE] Drug Allergy 0 [facility] (4 sources) NSAIDs Propensity to adverse reactions to drug 9 [facility] Medications Current Medications Medication Drug Class(es) Dates Sig (Normalized) Sig (Original) ALPRAZolam 0.5 mg disintegrating oral tablet (6 sources) Benzodiazepine Start: 12-25-2020 take 1 tablet by mouth once daily as needed for anxiety alprazolam 0.5 MG Tab Dispersible Indications: Opioid dependence in remission Take 1 tablet by mouth daily as needed for Anxiety. 30 tablet 1 12/25/2020 Active Completed/Discontinued Medications Medication Drug Class(es) Dates Sig (Normalized) Sig (Original) amoxicillin 875 mg / clavulanate 125 mg oral tablet (2 sources) Penicillin-class Antibacterial Start: 11-07-2019 End: 11-15-2019 take 1 tablet by mouth twice daily amoxicillin-clavul anate (AUGMENTIN) 875-125 mg per tablet Indications: Gingivitis, acute Take 1 (one) tablet by mouth 2 (two) times a day . 20 tablet 0 11/07/2019 11/15/2019 Discontinued buprenorphine 8 mg sublingual tablet (20 sources) Partial Opioid Agonist Start: 08-23-2021 End: 12-16-2021 take 1 tablet under the tongue twice daily, then take 2 tablets under the tongue once buprenorphine 8 MG sublingual tablet Indications: Opioid dependence in remission Place 1 tablet under tongue 2 times daily. 2 extra days due to vacation 60 tablet 0 10/18/2021 11/16/2021 Discontinued (Reorder) Problems Active Problems Problem Classification Problem Date Documented Da te Episodic/Chronic Anxiety disorders (3 sources) Anxiety; Translations: [Depression with anxiety] Onset: 7 11-03-2016 Chronic Esophageal disorders (20 sources) Gastroesophageal reflux disease; Translations: [Gastroesophageal reflux disease without esophagitis] Onset: 8 11-03-2016 Chronic Intestinal infection (1 source) Diarrhea of presumed infectious origin; Translations: [Diarrhea of presumed infectious origin] Episodic Medical examination/evaluation (2 sources) Encounter for general adult medical examination without abnormal findings; Translations: [Encounter for general adult medical examination without abnormal findings] Onset: 8 Episodic Mood disorders (20 sources) Mixed anxiety and depressive disorder; Translations: [Depression with anxiety] Onset: 7 11-03-2016 Chronic Other gastrointestinal disorders (1 source) Alteration in bowel elimination; Translations: [Change in bowel habit] Episodic Other lower respiratory disease (1 source) Chronic cough; Translations: [Chronic cough] Episodic Other nervous system disorders (2 sources) Paresthesia of lower extremity; Translations: [Numbness and tingling of both lower extremities] Episodic Other nutritional; endocrine; and metabolic disorders (2 sources) Abnormal weight loss; Translations: [Abnormal weight loss] Onset: 9 Episodic Other upper respiratory infections (20 sources) Chronic sinusitis; Translations: [Chronic sinusitis] Onset: 7 11-03-2016 Chronic Residual codes; unclassified (1 source) Needs influenza immunization; Translations: [Need for influenza vaccination] Episodic Residual codes; unclassified (1 source) Pain; Translations: [Pain] Episodic Screening or history of mental health and substance abuse (20 sources) Nicotine dependence; Translations: [Nicotine dependence] Onset: 7 11-03-2016 Chronic Spondylosis; intervertebral disc disorders; other back problems (20 sources) Displacement of lumbar intervertebral disc without myelopathy; Translations: [Degeneration of lumbar intervertebral disc] Onset: 1 11-03-2016 Chronic Spondylosis; intervertebral disc disorders; other back problems (20 sources) Backache; Translations: [Chronic low back pain] Onset: 7 Resolved: 9 11-03-2016 Episodic Substance-related disorders (20 sources) Tobacco dependence syndrome; Translations: [Opioid dependence in remission] Onset: 0 11-07-2019 Chronic Superficial injury; contusion (2 sources) Contusion of left lesser toe(s) without damage to nail, initial encounter; Translations: [Contusion of left lesser toe(s) without damage to nail, initial encounter] Onset: 3 Episodic Unclassified (1 source) Screening status; Translations: [Screening for heart disease] Unclassified (1 source) MOUD Onset: 1 11-26-2020 Unclassified (2 sources) Purple Toe/wound Onset: 3 Past or Other Problems Problem Classification Problem Date Documented Da te Episodic/Chronic Conditions associated with dizziness or vertigo (20 sources) Lightheadedness; Translations: [Lightheadedness] Onset: 03-10-2017 Resolved: 03-05-2019 03-10-2017 Episodic Disorders of teeth and jaw (13 sources) Acute gingivitis; Translations: [Gingivitis, acute] Onset: 11-07-2019 11-07-2019 Episodic Gastritis and duodenitis (20 sources) Acute hemorrhagic gastritis; Translations: [Duodenitis] Onset: 06-16-2008 Resolved: 11-07-2019 11-03-2016 Episodic Gastrointestinal hemorrhage (7 sources) Melena; Translations: [Hematochezia] Onset: 06-12-2008 11-03-2016 Episodic Gastrointestinal hemorrhage (20 sources) Blood-tinged feces; Translations: [Hematochezia] Onset: 06-12-2008 Resolved: 03-05-2019 03-05-2019 Genitourinary symptoms and ill-defined conditions (20 sources) Blood in urine; Translations: [Hematuria] Onset: 11-03-2016 Resolved: 03-05-2019 11-03-2016 Episodic Other gastrointestinal disorders (20 sources) Diarrhea; Translations: [Diarrhea] Onset: 10-11-2017 10-11-2017 Episodic Other nutritional; endocrine; and metabolic disorders (20 sources) Weight loss; Translations: [Weight loss] Onset: 10-11-2017 10-11-2017 Episodic Unclassified (20 sources) Patient encounter status; Translations: [Encounter for physical examination related to employment] Onset: 08-20-2018 Resolved: 03-05-2019 08-20-2018 Results Test Name Value Interpretation Reference Range Facil ity Vital Signs Date Time Vital Sign Value Performing Clinician Facility 11-16-2021 10:51-0400 Body mass index (BMI) [Ratio] 20.83 kg/m2 Tiffanie Beasley MD Work Phone: [facility] 11-16-2021 10:51-0400 Body temperature 96.6 [degF] Tiffanie Beasley MD Work Phone: [facility] 11-16-2021 10:51-0400 Body weight 62.14 kg Tiffanie Beasley MD Work Phone: [facility] 11-16-2021 10:51-0400 Diastolic blood pressure 79 mm[Hg] Tiffanie Beasley MD Work Phone: [facility] 11-16-2021 10:51-0400 Heart rate 69 /min Tiffanie Beasley MD Work Phone: [facility] 11-16-2021 10:51-0400 SaO2% (BldA) [Mass fraction] 96 % Tiffanie Beasley MD Work Phone: [facility] 11-16-2021 10:51-0400 Systolic blood pressure 121 mm[Hg] Tiffanie Beasley MD Work Phone: [facility] 10-18-2021 10:44-0400 Body mass index (BMI) [Ratio] 20.83 kg/m2 Tiffanie Beasley MD Work Phone: [facility] 10-18-2021 10:44-0400 Body temperature 97.81 [degF] Tiffanie Beasley MD Work Phone: [facility] 10-18-2021 10:44-0400 Body weight 62.14 kg Tiffanie Beasley MD Work Phone: [facility] 10-18-2021 10:44-0400 Diastolic blood pressure 73 mm[Hg] Tiffanie Beasley MD Work Phone: [facility] 10-18-2021 10:44-0400 Heart rate 79 /min Tiffanie Beasley MD Work Phone: [facility] 10-18-2021 10:44-0400 Systolic blood pressure 152 mm[Hg] Tiffanie Beasley MD Work Phone: [facility] 09-17-2021 14:29-0400 Body mass index (BMI) [Ratio] 20.98 kg/m2 Tiffanie Beasley MD Work Phone: [facility] 09-17-2021 14:29-0400 Body temperature 96.8 [degF] Tiffanie Beasley MD Work Phone: [employer] 09-17-2021 14:29-0400 Body weight 62.6 kg Tiffanie Beasley MD Work Phone: [facility] 09-17-2021 14:29-0400 Diastolic blood pressure 79 mm[Hg] Tiffanie Beasley MD Work Phone: [employer] 09-17-2021 14:29-0400 Heart rate 56 /min Tiffanie Beasley MD Work Phone: [employer] 09-17-2021 14:29-0400 Systolic blood pressure 127 mm[Hg] Tiffanie Beasley MD Work Phone: [facility] 02-23-2021 14:48-0400 Body mass index (BMI) [Ratio] 19.92 kg/m2 Tiffanie Beasley MD Work Phone: [employer] 02-23-2021 14:48-0400 Body temperature 96.01 [degF] Tiffanie Beasley MD Work Phone: [employer] 02-23-2021 14:48-0400 Body weight 59.42 kg Tiffanie Beasley MD Work Phone: [employer] 02-23-2021 14:48-0400 Diastolic blood pressure 65 mm[Hg] Tiffanie Beasley MD Work Phone: [facility] 02-23-2021 14:48-0400 Heart rate 74 /min Tiffanie Beasley MD Work Phone: [facility] 02-23-2021 14:48-0400 Systolic blood pressure 100 mm[Hg] Tiffanie Beasley MD Work Phone: [facility] 06-29-2020 14:09-0500 BMI (Body Mass Index) 18.72 kg/m2 [facility] 06-29-2020 14:09-0500 Body Temperature 98.29 [degF] [facility] 06-29-2020 14:09-0500 Body weight 55.84 kg [facility] 06-29-2020 14:09-0500 BP Diastolic 79 mm[Hg] [facility] 06-29-2020 14:09-0500 BP Systolic 117 mm[Hg] [facility] 06-29-2020 14:09-0500 Height 172.7 cm [facility] 06-29-2020 14:09-0500 Pulse (Heart Rate) 72 /min [facility] 06-29-2020 14:09-0500 Pulse Oximetry 98 % [facility] 06-29-2020 14:09-0500 Respiratory Rate 16 /min [facility] 04-13-2020 13:29-0400 BMI (Body Mass Index) 19.77 kg/m2 [facility] 04-13-2020 13:29-0400 Body weight 58.97 kg [facility] 04-13-2020 13:29-0400 BP Diastolic 91 mm[Hg] [facility] 04-13-2020 13:29-0400 BP Systolic 134 mm[Hg] [facility] 04-13-2020 13:29-0400 Height 172.7 cm [facility] 04-13-2020 13:29-0400 Pulse (Heart Rate) 93 /min [facility] 03-30-2020 13:54-0400 BMI (Body Mass Index) 19.77 kg/m2 [facility] 03-30-2020 13:54-0400 Body Temperature 98.2 [degF] [facility] 03-30-2020 13:54-0400 Body weight 58.97 kg [facility] 03-30-2020 13:54-0400 BP Diastolic 68 mm[Hg] [facility] 03-30-2020 13:54-0400 BP Systolic 103 mm[Hg] [facility] 03-30-2020 13:54-0400 Height 172.7 cm [facility] 03-30-2020 13:54-0400 Pulse (Heart Rate) 75 /min [facility] 03-30-2020 13:54-0400 Pulse Oximetry 92 % [facility] 03-30-2020 13:54-0400 Respiratory Rate 18 /min [facility] 02-11-2020 13:24-0400 BMI (Body Mass Index) 19.46 kg/m2 [facility] 02-11-2020 13:24-0400 Body Temperature 99.1 [degF] [facility] 02-11-2020 13:24-0400 Body weight 58.06 kg [facility] 02-11-2020 13:24-0400 BP Diastolic 65 mm[Hg] [facility] 02-11-2020 13:24-0400 BP Systolic 146 mm[Hg] [facility] 02-11-2020 13:24-0400 Height 172.7 cm [facility] 02-11-2020 13:24-0400 Pulse (Heart Rate) 87 /min [facility] 02-11-2020 13:24-0400 Pulse Oximetry 97 % [facility] 02-11-2020 13:24-0400 Respiratory Rate 18 /min [facility] 11-15-2019 08:09-0400 BMI (Body Mass Index) 19.87 kg/m2 [facility] 11-15-2019 08:09-0400 Body Temperature 98.1 [degF] [facility] 11-15-2019 08:09-0400 Body weight 59.28 kg [facility] 11-15-2019 08:09-0400 BP Diastolic 85 mm[Hg] [facility] 11-15-2019 08:09-0400 BP Systolic 123 mm[Hg] [facility] 11-15-2019 08:09-0400 Height 172.7 cm [facility] 11-15-2019 08:09-0400 Pulse (Heart Rate) 95 /min [facility] 11-15-2019 08:09-0400 Pulse Oximetry 98 % [facility] 11-15-2019 08:09-0400 Respiratory Rate 18 /min [facility] 11-07-2019 08:59-0400 BMI (Body Mass Index) 20.15 kg/m2 [facility] 11-07-2019 08:59-0400 Body Temperature 97.5 [degF] [facility] 11-07-2019 08:59-0400 Body weight 60.1 kg [facility] 11-07-2019 08:59-0400 BP Diastolic 70 mm[Hg] [facility] 11-07-2019 08:59-0400 BP Systolic 112 mm[Hg] [facility] 11-07-2019 08:59-0400 Height 172.7 cm [facility] 11-07-2019 08:59-0400 Pulse (Heart Rate) 79 /min [facility] 11-07-2019 08:59-0400 Pulse Oximetry 94 % [facility] 11-07-2019 08:59-0400 Respiratory Rate 16 /min [facility] 08-20-2019 08:49-0500 BMI (Body Mass Index) 19.48 kg/m2 [facility] 08-20-2019 08:49-0500 Body Temperature 97.81 [degF] [facility] 08-20-2019 08:49-0500 Body weight 58.11 kg [facility] 08-20-2019 08:49-0500 BP Diastolic 77 mm[Hg] [facility] 08-20-2019 08:49-0500 BP Systolic 132 mm[Hg] [facility] 08-20-2019 08:49-0500 Height 172.7 cm [facility] 08-20-2019 08:49-0500 [facility] ([facility] 70 /[facility] 08-20-2019 08:49-0500 Pulse Oximetry 95 % [facility] 08-20-2019 08:49-0500 Respiratory Rate 18 /min [facility] 07-23-2019 16:22-0500 BMI (Body Mass Index) 18.85 kg/m2 [facility] 07-23-2019 16:22-0500 Body Temperature 98.01 [degF] [facility] 07-23-2019 16:22-0500 Body weight 56.25 kg [facility] 07-23-2019 16:22-0500 BP Diastolic 70 mm[Hg] [facility] 07-23-2019 16:22-0500 BP Systolic 104 mm[Hg] [facility] 07-23-2019 16:22-0500 Height 172.7 cm [facility] 07-23-2019 16:22-0500 Pulse (Heart Rate) 70 /min [facility] 07-23-2019 16:22-0500 Pulse Oximetry 98 % [facility] 07-23-2019 16:22-0500 Respiratory Rate 18 /min [facility] 06-05-2019 11:57-0500 BP Diastolic 84 mm[Hg] [facility] 06-05-2019 11:57-0500 BP Systolic 140 mm[Hg] [facility] 06-05-2019 11:21-0500 BMI (Body Mass Index) 18.55 kg/m2 [facility] 06-05-2019 11:21-0500 Body Temperature 98.1 [degF] [facility] 06-05-2019 11:21-0500 Body weight 55.34 kg [facility] 06-05-2019 11:21-0500 Height 172.7 cm [facility] 06-05-2019 11:21-0500 Pulse (Heart Rate) 70 /min [facility] 06-05-2019 11:21-0500 Pulse Oximetry 97 % [facility] 06-05-2019 11:21-0500 Respiratory Rate 18 /min [facility] 05-01-2019 13:02-0400 BP Diastolic 86 mm[Hg] [facility] 05-01-2019 13:02-0400 BP Systolic 149 mm[Hg] [facility] 05-01-2019 13:02-0400 Pulse (Heart Rate) 71 /min [facility] 05-01-2019 13:02-0400 Pulse Oximetry 99 % [facility] 05-01-2019 13:02-0400 Respiratory Rate 13 /min [facility] 05-01-2019 12:42-0400 Body Temperature 97.2 [degF] [facility] 05-01-2019 11:38-0400 BMI (Body Mass Index) 18.7 kg/m2 [facility] 05-01-2019 11:38-0400 Body weight 55.79 kg [facility] 05-01-2019 11:38-0400 Height 172.7 cm [facility] 04-25-2019 15:43-0400 BMI (Body Mass Index) 18.4 kg/m2 [facility] 04-25-2019 15:43-0400 Body Temperature 98.01 [degF] [facility] 04-25-2019 15:43-0400 Body weight 54.88 kg [facility] 04-25-2019 15:43-0400 BP Diastolic 84 mm[Hg] [facility] 04-25-2019 15:43-0400 BP Systolic 123 mm[Hg] [facility] 04-25-2019 15:43-0400 Height 172.7 cm [facility] 04-25-2019 15:43-0400 Pulse (Heart Rate) 70 /min [facility] 04-25-2019 15:43-0400 Pulse Oximetry 98 % [facility] 04-25-2019 15:43-0400 Respiratory Rate 18 /min [facility] 04-10-2019 11:36-0400 BMI (Body Mass Index) 19.08 kg/m2 [facility] 04-10-2019 11:36-0400 Body Temperature 98.29 [degF] [facility] 04-10-2019 11:36-0400 Body weight 56.93 kg [facility] 04-10-2019 11:36-0400 BP Diastolic 73 mm[Hg] [facility] 04-10-2019 11:36-0400 BP Systolic 108 mm[Hg] [facility] 04-10-2019 11:36-0400 [facility] 04-10-2019 11:36-0400 Pulse (Heart Rate) 87 /min [facility] 04-10-2019 11:36-0400 Pulse Oximetry 92 % [facility] 03-05-2019 08:23-0400 BMI (Body Mass Index) 18.88 kg/m2 [facility] 03-05-2019 08:23-0400 Body Temperature 97.9 [degF] [facility] 03-05-2019 08:23-0400 Body weight 56.34 kg [facility] 03-05-2019 08:23-0400 BP Diastolic 63 mm[Hg] [facility] 03-05-2019 08:23-0400 BP Systolic 101 mm[Hg] [facility] 03-05-2019 08:23-0400 Height 172.7 cm [facility] 03-05-2019 08:23-0400 Pulse (Heart Rate) 65 /min [facility] 03-05-2019 08:23-0400 Pulse Oximetry 96 % [facility] 03-05-2019 08:23-0400 Respiratory Rate 16 /min [facility] 08-20-2018 17:56-0500 BMI (Body Mass Index) 19.95 kg/m2 [facility] 08-20-2018 17:56-0500 Body Temperature 97.59 [degF] [facility] 08-20-2018 17:56-0500 BP Diastolic 70 mm[Hg] [facility] 08-20-2018 17:56-0500 BP Systolic 112 mm[Hg] [facility] 08-20-2018 17:56-0500 Height 172.7 cm [facility] 08-20-2018 17:56-0500 Pulse (Heart Rate) 71 /min [facility] 08-20-2018 17:56-0500 Pulse Oximetry 98 % [facility] 08-20-2018 17:56-0500 Respiratory Rate 16 /min [facility] 08-20-2018 17:56-0500 Weight 59.51 kg [facility] 11-06-2017 14:22-0400 BMI (Body Mass Index) 18.7 kg/m2 [facility] 11-06-2017 14:22-0400 Body Temperature 98.2 [degF] [facility] 11-06-2017 14:22-0400 BP Diastolic 72 mm[Hg] [facility] 11-06-2017 14:22-0400 BP Systolic 124 mm[Hg] [facility] 11-06-2017 14:22-0400 Height 172.7 cm [facility] 11-06-2017 14:22-0400 Pulse (Heart Rate) 73 /min [facility] 11-06-2017 14:22-0400 Pulse Oximetry 98 % [facility] 11-06-2017 14:22-0400 Respiratory Rate 18 /min [facility] 11-06-2017 14:22-0400 Weight 55.79 kg [facility] 10-11-2017 11:21-0400 BMI (Body Mass Index) 19.78 kg/m2 [facility] 10-11-2017 11:21-0400 Body Temperature 97.5 [degF] [facility] 10-11-2017 11:21-0400 BP Diastolic 65 mm[Hg] [facility] 10-11-2017 11:21-0400 BP Systolic 105 mm[Hg] [facility] 10-11-2017 11:21-0400 Height 172.7 cm [facility] 10-11-2017 11:21-0400 Pulse (Heart Rate) 69 /min [facility] 10-11-2017 11:21-0400 Pulse Oximetry 98 % [facility] 10-11-2017 11:21-0400 Respiratory Rate 16 /min [facility] 10-11-2017 11:21-0400 Weight 59.01 kg [facility] 03-10-2017 11:16-0400 BMI (Body Mass Index) 20.68 kg/m2 [facility] Work Phone: 03-10-2017 11:16-0400 Body Temperature 98.1 [degF] [facility] Work Phone: 03-10-2017 11:16-0400 BP Diastolic 83 mm[Hg] [facility] Work Phone: 03-10-2017 11:16-0400 BP Systolic 122 mm[Hg] [employer] Work Phone: 03-10-2017 11:16-0400 Height 172.7 cm [employer] Work Phone: 03-10-2017 11:16-0400 Pulse (Heart Rate) 76 /min [employer] Work Phone: 03-10-2017 11:16-0400 Pulse Oximetry 98 % [employer] Work Phone: 03-10-2017 11:16-0400 Respiratory Rate 16 /min [employer] Work Phone: 03-10-2017 11:16-0400 Weight 61.69 kg Buzz Montes [employer] Work Phone: Encounters Encounter Date Encounter Type Care Provider Facility Start: 06-01-2023 End: 06-02-2023 Emergency department patient visit [facility] Start: 06-01-2023 End: 06-01-2023 Emergency department patient visit [facility] Start: 12-14-2022 End: 12-18-2022 ambulatory PHYSICIAN [facility] Start: 11-16-2021 End: 11-16-2021 Office outpatient visit 15 minutes Tiffanie Beasley MD Work Phone: [facility] [place] Procedures Date Procedure Procedure Detail Performing Clinician Start: 05-01-2019 End: 05-01-2019 Colonoscopy [employer]over[employer] Work Phone: Start: 05-01-2019 Cul bact aerobic add l meths definitive ea isol Donnamarie [employer] Work Phone: Start: 05-01-2019 Endoscopy of esophagus Donnamarie [employer] Work Phone: Start: 04-25-2019 Adult depression scr eening assessment [facility] Start: 03-05-2019 Adult depression scr eening assessment Donnamarie [employer] Start: 10-11-2017 Microscopic observat ion [Identifier] in Cervix by Cyto stain [facility] Plan of Treatment Date Care Activity Detail Author Start: 05-01-2029 Screening for malignant neoplasm of colon [facility] Start: 10-12-2027 Tetanus vaccination [facility] Start: 03-03-2022 Influenza vaccination INFLUENZA VACCINE (Season Ended) [facility] Start: 12-16-2021 End: 12-16-2021 Patient encounter procedure 12/16/2021 Office Visit Internal Medicine Tiffanie Beasley MD [address] [address] [facility] Start: 11-16-2021 End: 11-16-2021 Patient encounter procedure 11/16/2021 Office Visit Internal Medicine Tiffanie Beasley MD [address] [address] [facility] Start: 10-18-2021 End: 10-18-2021 Patient encounter procedure 10/18/2021 Office Visit Internal Medicine Tiffanie Beasley MD [address] [place] [id number] [facility] Start: 03-25-2021 End: 03-25-2021 Patient encounter procedure 03/25/2021 Office Visit Internal Medicine Tiffanie Beasley MD [address] [place] [id number] [facility] Start: 03-03-2021 Influenza vaccination INFLUENZA VACCINE (#1) [facility] Start: 01-27-2021 Depression Remission Assessment (PHQ9) Depression Remission Assessment (PHQ9) [facility] Start: 01-12-2021 COVID-19 VACCINE (2 - Moderna 2-dose series) COVID-19 VACCINE (2 - Moderna 2-dose series) [facility] Start: 10-11-2020 Screening for malignant neoplasm of cervix PAP SMEAR [facility] Start: 09-29-2020 End: 09-29-2020 Office Visit [facility] Start: 2020 Administration of herpes zoster vaccine Zoster Vaccines (1 of 2) [facility] Start: 2020 Screening for malignant neoplasm of colon [facility] Start: 2020 Screening for malignant neoplasm of lung LUNG CANCER SCREENING [facility] Start: 2020 Zoster vaccine hzv live for subcutaneous use ZOSTER (SHINGLES) VACCINE (1 of 2) [facility] Start: 07-04-2020 Patient Risk Level Override Patient Risk Level Override [facility] Start: 06-29-2020 End: 06-29-2020 Office Visit 06/29/2020 Office Visit Primary Care Angi Schmidt 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[employer]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 [address] [id number] [phone] [facility] Start: 04-25-2020 Depression screening using PHQ-9 (Patient Health Questionnaire 9) score DEPRESSION SCREENING (PHQ9) [facility] Start: 03-30-2020 End: 03-30-2020 Office Visit 03/30/2020 Office Visit Primary Care Angi Schmidt 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 [address] [id number] [phone] [facility] Start: 03-26-2020 Screening mammography Mammogram [facility] Immunizations Immunization Date Immunization Notes Care Provider Fa cility 04-25-2019 Seasonal, quadrivalent, recombinant, injectable influenza vaccine, preservative free [facility] 04-25-2019 flu vac qv 2019,18yr up,rc,PF, (FLUBLOK QUAD) syringe [facility] 04-25-2019 influenza virus vaccine, unspecified formulation Tiffanie Beasley MD Work Phone: [facility] Payers Date Payer Category Payer Unknown [id number] 2021 Unknown JAZMIN WU O PPO POS [id number] 2021-Present [address] [place] [address] [id number] 2017 Unknown xxxxxxxxxxxx [id number] 2017 Unknown [id number] 2017 Unknown M[employer] S UPERMED PPO [id number] 2017-Present [id number] 2016 Medicaid [id number] 2016 Unknown [id number] 1970 Unknown [id number] 1970 Unknown [id number] [id number]. 1970 Unknown [id number] 1970 Unknown [id number] [id number]. 1970 Unknown [id number] [id number]. 1970 Unknown [id number] [id number] 1970 Unknown [id number] [id number] 1970 Unknown [id number] [id number]. 1970 Unknown [id number] [id number] 1970 Unknown [id number] [id number]. 1970 Unknown [id number] [id number] 1970 Unknown [id number] [id number]. Medicaid [id number] Social History Date Type Detail Facility Start: 11-15-2017 End: 03-29-2019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 puts a lighted tube, or scope, and other surgical tools through small incisions (cuts) in your belly. The doctor is able to see your organs with the scope. Most people stay in the hospital 2 to 3 days. Your doctor may do an open surgery. The doctor makes a larger cut in the middle of your belly. You will probably stay in the hospital for 4 or 5 days after open surgery. What can you expect after this surgery? You may be sore and have some pain in your belly for several weeks. If you had laparoscopic surgery, you also may have pain near your shoulder for a day or two. It may be hard for you to swallow for up to 6 weeks. You may also have cramping in your belly, feel bloated, or pass more gas than before. The cramping and bloating usually go away in 2 to 3 months. But you may keep passing more gas for a long time. When you burp, you may not get as much relief as you did before the surgery. Or you may not be able toburp after surgery. The surgery makes your stomach a little smaller, so you may get full more quickly when you eat. In 2 to 3 months, the stomach adjusts. You will be able to eat your usual amounts of food. How quickly you recover depends on whether you had a laparoscopic or open surgery. After laparoscopic surgery, most people can go back to work or their normal routine in about 2 to 3 weeks. It depends on their work. After open surgery, you may need 4 to 6 weeks to get back to your normal routine. The incisions from both types of surgeries leave scars that fade over time. Follow-up care is a murray part of your treatment and safety. Be sure to make and go to all appointments, and call your doctor if you are having problems. It's also a good idea to know your test resultsand keep a list of the medicines you take. Where can you learn more? Log into your personal health record on [email or web address] and enter R113 in the Education box to learn more about Learning About Chilo Fundoplication Surgery. Current as of: February 09, 2016 Content Version: 11.2 1468-4550 [employer]. Care instructions adapted under license by your healthcare professional. If you have questions about a medical condition or this instruction, always ask your healthcare professional. [employer] disclaims any warranty or liability for your use of this information. in this encounter* Patient Instructions* Angi Schmidt CNP - 08/20/2018 6:54 PM EST Problem List Items Addressed This Visit Other Encounter for physical examination related to employment Everything on exam today looked great, no issues that would be concerning for working at [employer].Will fill out your paperwork and fax it in as soon as we get all of your labs. Learning About Benefits From Quitting Smoking How does quitting smoking make you healthier? If you're thinking about quitting smoking, you may have a few reasons to be smoke-free. Your healthmay be one of them. When you quit smoking, you lower your risks for cancer, lung disease, heart attack, stroke, blood vessel disease, and blindness from macular degeneration. When you're smoke-free, you get sick less often, and you heal faster. You are less likely to get colds, flu, bronchitis, and pneumonia. As a nonsmoker, you may find that your mood is better and you are less stressed. When and how will you feel healthier? Quitting has real health benefits that start from day 1 of being smoke-free. And the longer you stay smoke-free, the healthier you get and the better you feel. The first hours After just 20 minutes, your blood pressure and heart rate go down. That means there's less stress on your heart and blood vessels. Within 12 hours, the level of carbon monoxide in your blood drops back to normal. That makes room for more oxygen. With more oxygen in your body, you may notice that you have more energy than when you smoked. After 2 weeks Your lungs start to work better. Your risk of heart attack starts to drop. After 1 month When your lungs are clear, you cough less and breathe deeper, so it's easier to be active. Your sense of taste and smell return. That means you can enjoy food more than you have since you started smoking. Over the years After 1 year, your risk of heart disease is half what it would be if you kept smoking. After 5 years, your risk of stroke starts to shrink. Within a few years after that, it's about the same as if you'd never smoked. After 10 years, your risk of dying from lung cancer is cut by about half. And your risk for many other types of cancer is lower too. How would quitting help others in your life? When you quit smoking, you improve the health of everyone who now breathes in your smoke. Their heart, lung, and cancer risks drop, much like yours. They are sick less. For babies and small children, living smoke-free means they're less likely to have ear infections, pneumonia, and bronchitis. If you're a woman who is or will be someday, quitting smoking means a healthier . Children who are close to you are less likely to become adult smokers. Where can you learn more? Log into your personal health record on [email or web address].Nearpod and enter O319 in the Education box to learn more about Learning About Benefits From Quitting Smoking. Current as of: March 28, 2018 Content Version: 11.9 0807-9761 [employer]. Care instructions adapted under license by your healthcare professional. If you have questions about a medical condition or this instruction, always ask your healthcare professional. [employer] disclaims any warranty or liability for your use of this information. in this encounter* Patient Instructions* Angi Schmidt CNP - 03/05/2019 9:01 AM EDT Problem List Items Addressed This Visit Digestive Acute gastritis Relevant Orders CBC and Differential Comprehensive Metabolic Panel Ambulatory referral to General Surgery Gastroesophageal reflux disease To help manage your GERD symptoms it is important to maintain a healthy weight, even losing 5# can make a huge difference with acid reflux. Avoid laying down after meals. Avoid eating late at night. Elevate the head of your bed when sleeping. Avoid wearing tight fitting clothes. Avoid eating foods that can irritate your stomach such as; alcohol, fatty/greasy foods, chocolate, caffeine, mint, or spicy foods. Relevant Medications pantoprazole (PROTONIX) 40 MG tablet Other Relevant Orders CBC and Differential Comprehensive Metabolic Panel Ambulatory referral to General Surgery Other Depression with anxiety Your depression is not well controlled at this time. We will increase your Effexor to 150 mg a day to see if this helps. Relevant Medications venlafaxine (EFFEXOR-XR) 150 MG 24 hr capsule Diarrhea With your family history of colon cancer, your weight loss, and change in stool consistency I thinkit is really important to have a colonoscopy and an EGD to rule out bigger issues. Weight loss - Primary Relevant Orders Comprehensive Metabolic Panel TSH with Reflex Free T4 Ambulatory referral to General Surgery Other Visit Diagnoses Screening for heart disease Relevant Orders Lipid Panel If any referrals were placed at the time of your visit please allow 2 weeks for processing. If you haven't heard from anyone within 2 weeks please contact my office so we can look into the status of your referral. If you were given any labs today please ensure they are completed according to the directions given. Once labs are completed please allow 1-2 weeks for us to receive the results, review them, and letyou know what steps, if any, are needed next. If you haven't heard from us after that please call to inquire. If labs were ordered to be done PRIOR to your next visit we will discuss the results at the time ofyour office visit. If any procedures or imaging studies were ordered that must be prior authorized please give us 2 weeks to get them approved. Once approved someone should call you to schedule them or give you a date and time that they were scheduled for. If you haven't heard anything within 2 weeks of the office visit please call the office so we can look into their status. Customer Service/Billing Questions: [phone] MyChart Assistance: [phone] or [phone] Financial Assistance: [phone] or [phone] documented in this encounter* Patient Instructions* Angi Schmidt CNP - 04/25/2019 4:22 PM EDT Problem List Items Addressed This Visit Other Nicotine dependence - Primary Relevant Orders CT Chest Low Dose Lung Diagnostic - Only [facility] Weight loss Relevant Orders CT Chest Low Dose Lung Diagnostic - Only [facility] Other Visit Diagnoses Chronic cough Relevant Orders CT Chest Low Dose Lung Diagnostic - Only [facility] Need for influenza vaccination Relevant Medications flu vac qv 2019,18yr up,rc,PF, (FLUBLOK QUAD) syringe Other Relevant Orders Influenza vaccine IIV4 18 yo or >,Flublok Quad (Completed) If any referrals were placed at the time of your visit please allow 2 weeks for processing. If you haven't heard from anyone within 2 weeks please contact my office so we can look into the status of your referral. If you were given any labs today please ensure they are completed according to the directions given. Once labs are completed please allow 1-2 weeks for us to receive the results, review them, and letyou know what steps, if any, are needed next. If you haven't heard from us after that please call to inquire. If labs were ordered to be done PRIOR to your next visit we will discuss the results at the time ofyour office visit. If any procedures or imaging studies were ordered that must be prior authorized please give us 2 weeks to get them approved. Once approved someone should call you to schedule them or give you a date and time that they were scheduled for. If you haven't heard anything within 2 weeks of the office visit please call the office so we can look into their status. Customer Service/Billing Questions: [phone] [facility] Assistance: [phone] or [phone] Financial Assistance: [phone] or [phone] documented in this encounter* Patient Instructions* Angi Schmidt CNP - 07/23/2019 4:46 PM EST Problem List Items Addressed This Visit Other Diarrhea - Primary I want you to quit taking Pepto every single day and start using imodium as needed for loose stools. You can also take metamucil daily to help firm up stools. Relevant Orders Ambulatory referral to Gastroenterology Weight loss Relevant Orders Ambulatory referral to Gastroenterology If any referrals were placed at the time of your visit please allow 2 weeks for processing. If you haven't heard from anyone within 2 weeks please contact my office so we can look into the status of your referral. If you were given any labs today please ensure they are completed according to the directions given. Once labs are completed please allow 1-2 weeks for us to receive the results, review them, and letyou know what steps, if any, are needed next. If you haven't heard from us after that please call to inquire. If labs were ordered to be done PRIOR to your next visit we will discuss the results at the time ofyour office visit. If any procedures or imaging studies were ordered that must be prior authorized please give us 2 weeks to get them approved. Once approved someone should call you to schedule them or give you a date and time that they were scheduled for. If you haven't heard anything within 2 weeks of the office visit please call the office so we can look into their status. Customer Service/Billing Questions: [phone] MyChart Assistance: [phone] or [phone] Financial Assistance: [phone] or [phone] As of July 08, 2019 my schedule will be changing: Monday 7 am to 5 pm Monday 7 am to 5 pm Monday closed 7 am to 5 pm Monday 7 am to 1 pm documented in this encounter* Patient Instructions* Abhay Keyes MD - 08/20/2019 9:20 AM EST I will need to be sure that an ID specialist does not believe that E. coli (EPEC) is playing a rolein causing diarrhea. You need to see your PCP for the work up of weight loss involving issues outside of my field. documented in this encounter* Patient Instructions* Angi Schmidt CNP - 11/07/2019 12:16 PM EDT Problem List Items Addressed This Visit Digestive Gingivitis, acute We need to get the gingivitis under better control. You can not be taking more Gabapentin than prescribed, this is likely one of the causes of the diarrhea and your loss of control of your legs. Thisis a controlled substance and could void your agreement with DR. Beasley, this is very serious and I suggest you stop this practice immediately. Relevant Medications chlorhexidine (PERIDEX) 0.12 % solution amoxicillin-clavulanate (AUGMENTIN) 875-125 mg per tablet Other Diarrhea - Primary Keep your apt with gastroenterology next Monday, I would like to see what his opinion is on your chronic loose stools and EPEC infection. Relevant Medications loperamide (IMODIUM) 2 mg capsule Other Relevant Orders Comprehensive Metabolic Panel CBC and Differential TSH with Reflex Free T4 Magnesium Weight loss Relevant Orders Comprehensive Metabolic Panel CBC and Differential TSH with Reflex Free T4 Magnesium 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) Will be sending message to Dr. Beasley. If any referrals were placed at the time of your visit please allow 2 weeks for processing. If you haven't heard from anyone within 2 weeks please contact my office so we can look into the status of your referral. If you were given any labs today please ensure they are completed according to the directions given. Once labs are completed please allow 1-2 weeks for us to receive the results, review them, and letyou know what steps, if any, are needed next. If you haven't heard from us after that please call to inquire. If labs were ordered to be done PRIOR to your next visit we will discuss the results at the time ofyour office visit. If any procedures or imaging studies were ordered that must be prior authorized please give us 2 weeks to get them approved. Once approved someone should call you to schedule them or give you a date and time that they were scheduled for. If you haven't heard anything within 2 weeks of the office visit please call the office so we can look into their status. Customer Service/Billing Questions: [phone] MyChart Assistance: [phone] or [phone] Financial Assistance: [phone] or [phone] As of July 08, 2019 my schedule will be changing: Monday 7 am to 5 pm Monday 7 am to 5 pm Monday closed 7 am to 5 pm Monday 7 am to 1 pm documented in this encounter* Patient Instructions* Angi Schmidt CNP - 11/15/2019 10:39 AM EDT Problem List Items Addressed This Visit Other Depression with anxiety Most of your symptoms have improved with coming off of your Effexor and other medications. We will see how you feel as the next few weeks go on. Let me know if symptoms return or you start to feel worse. If any referrals were placed at the time of your visit please allow 2 weeks for processing. If you haven't heard from anyone within 2 weeks please contact my office so we can look into the status of your referral. If you were given any labs today please ensure they are completed according to the directions given. Once labs are completed please allow 1-2 weeks for us to receive the results, review them, and letyou know what steps, if any, are needed next. If you haven't heard from us after that please call to inquire. If labs were ordered to be done PRIOR to your next visit we will discuss the results at the time ofyour office visit. If any procedures or imaging studies were ordered that must be prior authorized please give us 2 weeks to get them approved. Once approved someone should call you to schedule them or give you a date and time that they were scheduled for. If you haven't heard anything within 2 weeks of the office visit please call the office so we can look into their status. Customer Service/Billing Questions: [phone] MyChart Assistance: [phone] or [phone] Financial Assistance: [phone] or [phone] As of July 08, 2019 my schedule will be changing: Monday 7 am to 5 pm Monday 7 am to 5 pm Monday closed 7 am to 5 pm Monday 7 am to 1 pm documented in this encounter* Patient Instructions* Angi Schmidt CNP - 10/16/2019 1:00 PM EDT Problem List Items Addressed This Visit Digestive Acute gastritis - Primary Duodenitis Relevant Orders Ambulatory referral to Gastroenterology Other Diarrhea Relevant Orders Ambulatory referral to Gastroenterology Weight loss Relevant Orders Ambulatory referral to Gastroenterology If any referrals were placed at the time of your visit please allow 2 weeks for processing. If you haven't heard from anyone within 2 weeks please contact my office so we can look into the status of your referral. If you were given any labs today please ensure they are completed according to the directions given. Once labs are completed please allow 1-2 weeks for us to receive the results, review them, and letyou know what steps, if any, are needed next. If you haven't heard from us after that please call to inquire. If labs were ordered to be done PRIOR to your next visit we will discuss the results at the time ofyour office visit. If any procedures or imaging studies were ordered that must be prior authorized please give us 2 weeks to get them approved. Once approved someone should call you to schedule them or give you a date and time that they were scheduled for. If you haven't heard anything within 2 weeks of the office visit please call the office so we can look into their status. Customer Service/Billing Questions: [phone] MyChart Assistance: [phone] or [phone] Financial Assistance: [phone] or [phone] As of July 08, 2019 my schedule will be changing: Monday 7 am to 5 pm Monday 7 am to 5 pm Monday closed 7 am to 5 pm Monday 7 am to 1 pm documented in this encounter* Patient Instructions* Angi Schmidt CNP - 02/11/2020 2:04 PM EDT Problem List Items Addressed This Visit None If any referrals were placed at the time of your visit please allow 2 weeks for processing. If you haven't heard from anyone within 2 weeks please contact my office so we can look into the status of your referral. If you were given any labs today please ensure they are completed according to the directions given. Once labs are completed please allow 1-2 weeks for us to receive the results, review them, and letyou know what steps, if any, are needed next. If you haven't heard from us after that please call to inquire. If labs were ordered to be done PRIOR to your next visit we will discuss the results at the time ofyour office visit. If any procedures or imaging studies were ordered that must be prior authorized please give us 2 weeks to get them approved. Once approved someone should call you to schedule them or give you a date and time that they were scheduled for. If you haven't heard anything within 2 weeks of the office visit please call the office so we can look into their status. Customer Service/Billing Questions: [phone] [employer] Assistance: [phone] or [phone] Financial Assistance: [phone] or [phone] As of July 08, 2019 my schedule will be changing: Monday 7 am to 5 pm Monday 7 am to 5 pm Monday closed 7 am to 5 pm Monday 7 am to 1 pm documented in this encounter* Patient Instructions* Angi Schmidt CNP - 03/30/2020 2:22 PM EDT Problem List Items Addressed This Visit Musculoskeletal and Integument Displacement of lumbar intervertebral disc without myelopathy - Primary Relevant Orders Ambulatory referral to Orthopedic Surgery Other Chronic low back pain Relevant Orders Ambulatory referral to Orthopedic Surgery 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) Continue to follow closely with your drug safety data management specialist. Let me or him know immediatly if you need help or feel like you are going to relapse. Weight loss Weight is stable. Other Visit Diagnoses Numbness and tingling of both lower extremities Relevant Orders Ambulatory referral to Orthopedic Surgery If any referrals were placed at the time of your visit please allow 2 weeks for processing. If you haven't heard from anyone within 2 weeks please contact my office so we can look into the status of your referral. If you were given any labs today please ensure they are completed according to the directions given. Once labs are completed please allow 1-2 weeks for us to receive the results, review them, and letyou know what steps, if any, are needed next. If you haven't heard from us after that please call to inquire. If labs were ordered to be done PRIOR to your next visit we will discuss the results at the time ofyour office visit. If any procedures or imaging studies were ordered that must be prior authorized please give us 2 weeks to get them approved. Once approved someone should call you to schedule them or give you a date and time that they were scheduled for. If you haven't heard anything within 2 weeks of the office visit please call the office so we can look into their status. Customer Service/Billing Questions: [phone] MyChart Assistance: [phone] or [phone] Financial Assistance: [phone] or [phone] As of July 08, 2019 my schedule will be changing: Monday 7 am to 5 pm Monday 7 am to 5 pm Monday closed 7 am to 5 pm Monday 7 am to 1 pm documented in this encounter* Patient Instructions* Angi Schmidt CNP - 06/29/2020 2:46 PM EST Problem List Items Addressed This Visit Other 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) - Primary Relevant Orders Ambulatory referral to Social Work Ambulatory referral to Care Management Weight loss You need to let Dr. Beasley know that you are not taking your medications appropriately and you are going through withdrawal every single month. You may want to look into going into a rehab facility to get off of the Subutex and off all opioids. You can not afford to continue to lose weight, youneed to make your health a priority. Relevant Orders Ambulatory referral to Social Work Ambulatory referral to Care Management If any referrals were placed at the time of your visit please allow 2 weeks for processing. If you haven't heard from anyone within 2 weeks please contact my office so we can look into the status of your referral. If you were given any labs today please ensure they are completed according to the directions given. Once labs are completed please allow 1-2 weeks for us to receive the results, review them, and letyou know what steps, if any, are needed next. If you haven't heard from us after that please call to inquire. If labs were ordered to be done PRIOR to your next visit we will discuss the results at the time ofyour office visit. If any procedures or imaging studies were ordered that must be prior authorized please give us 2 weeks to get them approved. Once approved someone should call you to schedule them or give you a date and time that they were scheduled for. If you haven't heard anything within 2 weeks of the office visit please call the office so we can look into their status. Customer Service/Billing Questions: [phone] MyChart Assistance: [phone] or [phone] Financial Assistance: [phone] or [phone] documented in this encounter* Patient Instructions* Angi Schmidt CNP - 06/05/2019 12:02 PM EST Problem List Items Addressed This Visit Other Diarrhea Continue to follow with Dr. Carreon. If you are still not getting any better we will look into sending you to gastroenterology to see Dr. Keyes. If any referrals were placed at the time of your visit please allow 2 weeks for processing. If you haven't heard from anyone within 2 weeks please contact my office so we can look into the status of your referral. If you were given any labs today please ensure they are completed according to the directions given. Once labs are completed please allow 1-2 weeks for us to receive the results, review them, and letyou know what steps, if any, are needed next. If you haven't heard from us after that please call to inquire. If labs were ordered to be done PRIOR to your next visit we will discuss the results at the time ofyour office visit. If any procedures or imaging studies were ordered that must be prior authorized please give us 2 weeks to get them approved. Once approved someone should call you to schedule them or give you a date and time that they were scheduled for. If you haven't heard anything within 2 weeks of the office visit please call the office so we can look into their status. Customer Service/Billing Questions: [phone] MyChart Assistance: [phone] or [phone] Financial Assistance: [phone] or [phone] As of July 08, 2019 my schedule will be changing: Monday 7 am to 5 pm Monday 7 am to 5 pm Monday closed 7 am to 5 pm Monday 7 am to 2 pm documented in this encounter Assessments Diagnosis Gastroesophageal reflux dise ase, esophagitis presence not specified - Primary Lightheadedness Dizziness and giddiness Diarrhea, unspecified type Weight loss Loss of weight History of hematuria Personal history of other disorder of urinary system Diagnosis Diarrhea of presumed infecti ous origin - Primary Gastroesophageal reflux dise ase, esophagitis presence not specified Diagnosis Lightheadedness Dizziness and giddiness Gastroesophageal reflux dise ase, esophagitis presence not specified Depression with anxiety Dysthymic disorder Diagnosis Encounter for physical examination related to employment- Primary Diagnosis Lightheadedness Dizziness and giddiness Diagnosis Weight loss- Primary Loss of weight Gastroesophageal reflux disease, esophagitis presence not specified Depression with anxiety Dysthymic disorder Acute gastritis, presence of bleeding unspecified, unspecified gastritis type Screening for heart disease Screening for other and unspecified cardiovascular conditions Diarrhea of presumed infectious origin Diagnosis Weight loss- Primary Loss of weight Gastroesophageal reflux disease, esophagitis presence not specified Diarrhea, unspecified type Acute gastritis, presence of bleeding unspecified, unspecified gastritis type Change in bowel habit Diagnosis Cigarette nicotine dependence with nicotine-induced disorder- Primary Weight loss Loss of weight Chronic cough Cough Need for influenza vaccination Need for prophylactic vaccination and inoculation against influenza Diagnosis Weight loss Loss of weight Gastroesophageal reflux disease, esophagitis presence not specified Diarrhea, unspecified type Gastroesophageal reflux disease without esophagitis Esophageal reflux Diagnosis Diarrhea, unspecified type Weight loss Loss of weight Diagnosis Diarrhea, unspecified type Weight loss Loss of weight Gingivitis, acute Acute gingivitis, plaque induced 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) Opioid type dependence, in remission Diagnosis Depression with anxiety Dysthymic disorder Diagnosis Acute gastritis, presence of bleeding unspecified, unspecified gastritis type Duodenitis Weight loss Loss of weight Diarrhea, unspecified type Diagnosis 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) Opioid type dependence, in remission Diagnosis Displacement of lumbar intervertebral disc without myelopathy- Primary Chronic bilateral low back pain with left-sided sciatica Numbness and tingling of both lower extremities Weight loss Loss of weight 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) Opioid type dependence, in remission Diagnosis Lumbar degenerative disc disease- Primary 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 Numbness and tingling of both lower extremities Diagnosis Pain Generalized pain Diagnosis 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)- Primary Opioid type dependence, in remission Weight loss Loss of weight Diagnosis Diarrhea, unspecified type Summary Purpose Family History No Family History Records FoundNo Family History Records FoundNo Family History Records FoundNo Family History Records FoundNo Family History Records FoundNo Family History Records Found Advance Directives No Advanced Directives Records FoundDocuments on File Type Date Recorded 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 Printer 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 Expl 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 Advance Directives and Living Will Documents on File Type Date Recorded 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 Printer Operator Expl anation Advance Directives and Living Will Documents on File Type Date Recorded 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 Printer Operator Expl anation Advance Directives and Livin g Will 05/01/2019 10:53 AM Documents on File Type Date Recorded 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 female. Patient is here for a physical for her place of employment, [employer]. Denies any issues or complaints at today's visit. The following portions of the patient's history were reviewed and updated as appropriate: allergies, current medications, past family history, past medical history, past social history, past surgicalhistory and problem list. Review of Systems Constitutional: Negative for activity change, appetite change, fatigue and unexpected weight change. HENT: Negative for congestion, hearing loss, postnasal drip, rhinorrhea, sinus pressure, sinus painand sneezing. Eyes: Negative for photophobia and visual disturbance. Respiratory: Negative for cough, chest tightness, shortness of breath and wheezing. Cardiovascular: Negative for chest pain and palpitations. Gastrointestinal: Negative for constipation, diarrhea, nausea and vomiting. Endocrine: Negative for cold intolerance and heat intolerance. Genitourinary: Negative for dysuria, frequency and urgency. Musculoskeletal: Negative for arthralgias, back pain and myalgias. Skin: Negative. Neurological: Negative for dizziness, light-headedness and headaches. Hematological: Negative. Psychiatric/Behavioral: Negative for dysphoric mood and sleep disturbance. The patient is not nervous/anxious. Objective Physical Exam Constitutional: Vital signs are normal. She appears well-developed and well-nourished. HENT: Head: Normocephalic. Right Ear: Tympanic membrane and external ear normal. Left Ear: Tympanic membrane and external ear normal. Nose: Nose normal. Mouth/Throat: Uvula is midline, oropharynx is clear and moist and mucous membranes are normal. Eyes: Pupils are equal, round, and reactive to light. Conjunctivae, EOM and lids are normal. Neck: Trachea normal, normal range of motion and full passive range of motion without pain. Neck supple. No JVD present. Carotid bruit is not present. No thyroid mass and no thyromegaly present. Cardiovascular: Normal rate, regular rhythm, normal heart sounds and normal pulses. No murmur heard. Pulmonary/Chest: Effort normal. She has no decreased breath sounds. She has no wheezes. She has no rhonchi. She has no rales. Abdominal: Soft. Normal appearance and bowel sounds are normal. There is no tenderness. There is noCVA tenderness. No hernia. Lymphadenopathy: She has no cervical adenopathy. Neurological: She is alert. She has normal strength. No cranial nerve deficit. Skin: Skin is warm, dry and intact. Psychiatric: She has a normal mood and affect. Her speech is normal and behavior is normal. Thoughtcontent normal. Vitals: 08/20/18 1756 BP: 112/70 BP Location: Right arm Patient Position: Sitting BP Cuff Size: Adult Pulse: 71 Resp: 16 Temp: 97.6 F (36.4 C) TempSrc: Oral SpO2: 98% Weight: 59.5 kg (131 lb 3.2 oz) Height: 5' 8 Body mass index is 19.95 kg/m . Medication List Accurate as of 08/20/18 11:59 PM. If you have any questions, ask your nurse or doctor. CONTINUE taking these medications buprenorphine HCl 8 mg SL Tablet Commonly known as: SUBUTEX CHEWABLE PROBIOTIC ORAL gabapentin 600 MG tablet Commonly known as: NEURONTIN pantoprazole 40 MG tablet Commonly known as: PROTONIX TAKE ONE TABLET BY MOUTH ONCE DAILY polyethylene glycol 17 gram powder Commonly known as: MIRALAX Take 17 g by mouth daily as needed Take the evening of the second day without a movement and the following morning. psyllium powder Commonly known as: METAMUCIL venlafaxine 75 MG 24 hr capsule Commonly known as: EFFEXOR-XR TAKE ONE CAPSULE BY MOUTH ONCE DAILY No Known Allergies Past Medical History: Diagnosis Date Alcohol dependence (HCC) Arthritis 2007 Dr. Kamaljit Miranda 2007 Dr. Mari Past Surgical History: Procedure Laterality Date D&C (DIL & CURETTAGE, SHARP W/ SUCTION) 1990 ESOPHAGOGASTRODUODENOSCOPY HYSTERECTOMY 2008 [facility]-Has one ovary, unsure which she has TUBAL LIGATION Assessment/Plan: Problem List Items Addressed This Visit Other Encounter for physical examination related to employment - Primary Everything on exam today looked great, no issues that would be concerning for working at [employer].Will fill out your paperwork and fax it in as soon as we get all of your labs. Relevant Orders Lipid Panel Comprehensive Metabolic Panel TSH with Reflex Free T4 CBC and Differential Goals None No data recorded For any new medications prescribed today, patient was educated about indications for the medication, how to take the medication and potential side effects of the medications. in this encounter* Angi Schmidt CNP - 03/05/2019 8:46 AM EDT Subjective Patient ID: Miladys Ernandez is a 48 y.o. female. Patient is here today for a routine interval visit and medication refills. 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 She states that used everything but never used a needle. She has been clean for the past 5 years from everything except marijuana which she states she uses as an appetite stimulant. She is also p rescribed Subtex by Dr. Beasley, notes are in the chart. She states in the past two years she has had issues with loose stools. Depending on if she eats will determine how many stools she has in aday. She states she has no appetite and will forget to eat for 2 days. She states her weight is fluctuating between 118-125#. BMI today is 18.9. She states she will also have long skinny stools at times. She states her dad of colon cancer in his 50's. Last colonoscopy about 12 years ago. She states she has stomach ache every single day despite taking the Protonix 40-80 mg. She also takes Pepto Bismuth tablets daily if her stomach hurts. Patient does drink large amounts of coffee on a daily basis with no food on her stomach. Depression: Patient is currently on Effexor 75 mg daily to help with depression. She states she feels like this medication helps but not enough. Over the last 2 weeks, how often have you been bothered by any of the following problems? Little interest or pleasure in doing things: Several days Feeling down, depressed, or hopeless: Several days PHQ-2 Total Score: 2 Trouble falling or staying asleep, or sleeping too much: More than half the days Feeling tired or having little energy: Several days Poor appetite or overeating: Nearly every day Feeling bad about yourself - or that you are a failure or have let yourself or your family down: Several days Trouble concentrating on things, such as reading the newspaper or watching television: Not at all Moving or speaking so slowly that other people could have noticed. Or the opposite - being so fidgety or restless that you have been moving around a lot more than usual: Not at all Thoughts that you would be better off , or of hurting yourself in some way: Not at all PHQ-9 Total Score: 9 If you checked off any problems, how difficult have these problems made it for you to do your work,take care of things at home, or get along with other people?: Not difficult at all The following were reviewed and updated as appropriate for today's visit: allergies, current medications, past family history, past medical history, past social history, past surgical history and problem list. Patient's Medications New Prescriptions FAMOTIDINE (PEPCID) 40 MG TABLET Take 1 (one) tablet (40 mg total) by mouth daily . Previous Medications BUPRENORPHINE HCL (SUBUTEX) [address] 8 mg under the tongue 2 (two) times a day . GABAPENTIN (NEURONTIN) 600 MG TABLET Take 600 mg by mouth 4 (four) times a day. L. ACIDOPHILUS/BIFID. ANIMALIS (CHEWABLE PROBIOTIC ORAL) Take by mouth daily . POLYCARBOPHIL (FIBERCON) 625 MG TABLET Take 625 mg by mouth daily . Modified Medications Modified Medication Previous Medication PANTOPRAZOLE (PROTONIX) 40 MG TABLET pantoprazole (PROTONIX) 40 MG tablet Take 1 (one) tablet (40 mg total) by mouth daily . TAKE ONE TABLET BY MOUTH ONCE DAILY VENLAFAXINE (EFFEXOR-XR) 150 MG 24 HR CAPSULE venlafaxine (EFFEXOR-XR) 75 MG 24 hr capsule Take 1 (one) capsule (150 mg total) by mouth daily . TAKE ONE CAPSULE BY MOUTH ONCE DAILY Discontinued Medications POLYETHYLENE GLYCOL (MIRALAX) 17 GRAM POWDER Take 17 g by mouth daily as needed Take the evening ofthe second day without a movement and the following morning. PSYLLIUM (METAMUCIL) POWDER Take by mouth daily . Review of Systems Review of Systems Constitutional: Positive for appetite change, fatigue and unexpected weight change. Negative for activity change. HENT: Negative for hearing loss. Eyes: Negative for visual disturbance. Respiratory: Negative for cough, chest tightness, shortness of breath and wheezing. Cardiovascular: Negative for chest pain and palpitations. Gastrointestinal: Positive for abdominal pain, diarrhea, nausea and vomiting (occasional). Negativefor blood in stool, constipation and rectal pain. Musculoskeletal: Positive for back pain. Negative for gait problem. Skin: Positive for pallor. Psychiatric/Behavioral: Positive for decreased concentration, dysphoric mood and sleep disturbance.Negative for agitation, self-injury and suicidal ideas. The patient is not nervous/anxious. Vitals: 03/05/19 0823 BP: 101/63 BP Location: Left arm Patient Position: Sitting BP Cuff Size: Adult Pulse: 65 Resp: 16 Temp: 97.9 F (36.6 C) TempSrc: Oral SpO2: 96% Weight: 56.3 kg (124 lb 3.2 oz) Height: 5' 8 Body mass index is 18.88 kg/m . Physical Exam Physical Exam Constitutional: She is oriented to person, place, and time. She appears well- developed. She appearscachectic. Very pleasant, thin chronically ill appearing female HENT: Right Ear: External ear normal. Left Ear: External ear normal. Nose: Nose normal. Mouth/Throat: Oropharynx is clear and moist and mucous membranes are normal. Eyes: Conjunctivae, EOM and lids are normal. Neck: Normal range of motion. Cardiovascular: Normal rate, regular rhythm and normal heart sounds. No murmur heard. Pulmonary/Chest: Effort normal and breath sounds normal. Musculoskeletal: Comments: Normal gait Neurological: She is alert and oriented to person, place, and time. GCS eye subscore is 4. GCS verbal subscore is 5. GCS motor subscore is 6. Skin: Skin is warm and dry. Psychiatric: She has a normal mood and affect. Her speech is normal and behavior is normal. No data recorded Assessment/Plan Problem List Items Addressed This Visit Digestive Acute gastritis Relevant Orders CBC and Differential Comprehensive Metabolic Panel Ambulatory referral to General Surgery Gastroesophageal reflux disease To help manage your GERD symptoms it is important to maintain a healthy weight, even losing 5# can make a huge difference with acid reflux. Avoid laying down after meals. Avoid eating late at night. Elevate the head of your bed when sleeping. Avoid wearing tight fitting clothes. Avoid eating foods that can irritate your stomach such as; alcohol, fatty/greasy foods, chocolate, caffeine, mint, or spicy foods. Relevant Medications pantoprazole (PROTONIX) 40 MG tablet Other Relevant Orders CBC and Differential Comprehensive Metabolic Panel Ambulatory referral to General Surgery Other Depression with anxiety Your depression is not well controlled at this time. We will increase your Effexor to 150 mg a day to see if this helps. Relevant Medications venlafaxine (EFFEXOR-XR) 150 MG 24 hr capsule Diarrhea With your family history of colon cancer, your weight loss, and change in stool consistency I thinkit is really important to have a colonoscopy and an EGD to rule out bigger issues. Weight loss - Primary Relevant Orders Comprehensive Metabolic Panel TSH with Reflex Free T4 Ambulatory referral to General Surgery Other Visit Diagnoses Screening for heart disease Relevant Orders Lipid Panel Preventative Goals Goals better food choices You need to cut out all the coffee and high acidic foods. Coping and Emotions Coping and Emotions: Manage stress Adapt to lifestyle changes Get support from family / friends For any new medications prescribed today, patient was educated about indications for the medication, how to take the medication and potential side effects of the medications. Angi Schmidt CNP documented in this encounter* Camelia Tracy MD - 04/10/2019 11:42 AM EDT HISTORY & PHYSICAL EXAMINATION Patient Name: Miladys Ernandez MR #: [id number] : 1970 Physicians: Angi Schmidt, JAY (Family); Angi Schmidt C* (Referring) Chief Complaint/Reason for Visit: Abdominal pain, weight loss change in bowel habit, family historyof colon cancer History of Present Illness: Miladys Ernandez is a 48 y.o. y/o female past medical history of EtOH abuse, arthritis and Suboxone use presenting for complaint of abdominal pain, weight loss, changes in her bowel habits and a family history of colon cancer. States that for several months she is been struggling with constipation with intermittent diarrhea this is associated with significant abdominal pain and nausea but denies any vomiting. Has not noted any blood in the stool and no black or tar likestools. As for her family history reports that her father was diagnosed with colon cancer in his 50s and from complications of it. Denies any other history of polyp Risk factor/ Bowel Symptoms Diarrhea yes. Constipation yes. Blood in stool no. Mucus in stool no. Change in caliber of stool yes. Diagnosis of anemia no. Family history of colon cancer yes. Family history of other digestive cancer. no. History: I have reviewed the PMHx, PSHx, SHx, FHx in EMR with the patient during this encounter face to faceand patient agrees with the documentation Past Medical History: Diagnosis Date Alcohol dependence (HCC) Arthritis 2007 Dr. Mari Foot abscess 10/19/2018 Info Gained From: [facility] ED report --- Jeremi Sanford MD Sciatica 2007 Dr. Mari Past Surgical History: Procedure Laterality Date COLONOSCOPY [facility] [place] D&C (DIL & CURETTAGE, SHARP W/ SUCTION) 1990 ESOPHAGOGASTRODUODENOSCOPY HYSTERECTOMY 11/10/2009 [facility], [facility], vaginal with right salpingo-oophorectomy......Dr. Canales TUBAL LIGATION Family History Problem Relation Age of Onset Arthritis Mother COPD Mother Depression Mother Heart disease Mother Kidney disease Mother Social History Socioeconomic History Marital status: Spouse name: Not on file Number of children: Not on file Years of education: Not on file Highest education level: Not on file Occupational History Not on file Social Needs Financial resource strain: Not on file Food insecurity: Worry: Never true Inability: Never true Transportation needs: Medical: Not on file Non-medical: Not on file Tobacco Use Smoking status: Current Every Day Smoker Packs/day: 2.00 Years: 35.00 Pack years: 70.00 Smokeless tobacco: Never Used Tobacco comment: Patient needs to quit smoking Substance and Sexual Activity Alcohol use: No Drug use: Yes Types: Subutex Sexual activity: Not Currently Partners: Male Lifestyle Physical activity: Days per week: Not on file Minutes per session: Not on file Stress: Not on file Relationships Social connections: Talks on phone: Not on file Gets together: Three times a week Attends muslim service: Not on file Active member of club or organization: Not on file Attends meetings of clubs or organizations: Not on file Relationship status: Not on file Other Topics Concern Not on file Social History Narrative Not on file Allergy Information: Patient has no known allergies. Home Medications: Outpatient Medications as of 04/10/2019 Medication Sig buprenorphine HCl (SUBUTEX) [address] 8 mg under the tongue 2 (two) times a day . famotidine (PEPCID) 40 MG tablet Take 1 (one) tablet (40 mg total) by mouth daily . gabapentin (NEURONTIN) 600 MG tablet Take 600 mg by mouth 4 (four) times a day. L. acidophilus/Bifid. animalis (CHEWABLE PROBIOTIC ORAL) Take by mouth daily . pantoprazole (PROTONIX) 40 MG tablet Take 1 (one) tablet (40 mg total) by mouth daily . polycarbophil (FIBERCON) 625 mg tablet Take 625 mg by mouth daily . venlafaxine (EFFEXOR-XR) 150 MG 24 hr capsule Take 1 (one) capsule (150 mg total) by mouth daily . Review of Systems: Review of Systems Constitutional: Positive for appetite change, fatigue and unexpected weight change. Respiratory: Positive for shortness of breath. Gastrointestinal: Positive for abdominal pain, constipation, diarrhea and nausea. Genitourinary: Positive for frequency. Musculoskeletal: Positive for arthralgias. All other systems reviewed and are negative. Physical Examination: Vital Signs: BP 108/73 Pulse 87 Temp 98.3 F (36.8 C) (Oral) Ht 5' 8 Wt 56.9 kg (125 lb 8 oz) SpO2 92% BMI 19.08 kg/m Physical Exam HENT: Head: Normocephalic. Nose: Nose normal. Mouth/Throat: Mouth: Mucous membranes are moist. Eyes: General: No scleral icterus. Pupils: Pupils are equal, round, and reactive to light. Neck: Musculoskeletal: Normal range of motion. Cardiovascular: Rate and Rhythm: Normal rate. Heart sounds: No murmur. Pulmonary: Effort: Pulmonary effort is normal. No respiratory distress. Breath sounds: Normal breath sounds. Abdominal: General: Abdomen is flat. There is no distension. Tenderness: There is no tenderness. Musculoskeletal: Normal range of motion. Skin: General: Skin is warm. Neurological: General: No focal deficit present. Mental Status: She is alert. Cranial Nerves: No cranial nerve deficit. Psychiatric: Mood and Affect: Mood normal. Thought Content: Thought content normal. Laboratory and Additional Data Reviewed: Laboratory 04/10/19 11:54 AM Laboratory Lab Results Component Value Date WBC 6.84 03/05/2019 WBC 5.8 10/11/2017 RBC 4.25 03/05/2019 HGB 12.5 03/05/2019 HGB 12.7 10/11/2017 HCT 38.9 03/05/2019 HCT 39.0 10/11/2017 PLT 280 03/05/2019 PLT 234 10/11/2017 No results found for: AMYLASE No results found for: LIPASE Assessment and Plan: Miladys Ernandez is a 48 y.o. y/o female past medical history of EtOH abuse, arthritis and Suboxone use presenting for complaint of abdominal pain, weight loss, changes in her bowel habits and a family history of colon cancer for colonoscopy and EGD. Patient Active Problem List Diagnosis Acute gastritis Duodenitis Gastroesophageal reflux disease Displacement of lumbar intervertebral disc without myelopathy Depression with anxiety Nicotine dependence Chronic sinusitis Diarrhea Weight loss Plan: Schedule for colonoscopy. Schedule for upper endoscopy. The risks and benefits of my recommendations, as well as other treatment options were discussed with the patient today including but not limited to perforation and bleeding. Prep instruction providedand consent obtained. Questions were answered. Screening and Health maintenance Colonoscopy - Last colonoscopy 2007 documented in this encounter* Angi Schmidt CNP - 04/25/2019 4:21 PM EDT Subjective Patient ID: Miladys Ernandez is a 48 y.o. female. Patient is here today for a routine interval visit to follow up on weight loss. She continues to lose weight and has lost another 4# in the past month. She states she continues to try to eat but she has an upset stomach all the time. She has apt with Dr. Tracy next week for EGD and colonoscopy to evaluate her symptoms closer. Her stool did come back positive for EPEC, referral sent out to infectious disease but it was less than one week ago. Encouraged patient to call us early next week if shehas not heard from their office. Currently taking clindamycin 04/23/2019, she is taking 150 mg TID, it is a friends script. She is taking it for dental infection. She states she is going to make an apt with a dentist. CT screening of chest was denied, will put in diagnostic CT due to continued weight loss and a 70 pack year smoking history. Interested in quitting smoking but not at this time, states just not ready yet. She states she needs to get through this stomach stuff first. The following were reviewed and updated as appropriate for today's visit: allergies, current medications, past family history, past medical history, past social history, past surgical history and problem list. Patient's Medications New Prescriptions No medications on file Previous Medications BUPRENORPHINE HCL (SUBUTEX) [address] 8 mg under the tongue 2 (two) times a day . FLU VAC QV 2019,18YR UP,RC,PF, (FLUBLOK QUAD) SYRINGE Sign this order in conjunction with the immunization order to satisfy [place] Board of Pharmacy Positive ID requirements for immunization orders. . GABAPENTIN (NEURONTIN) 600 MG TABLET Take 600 mg by mouth 4 (four) times a day. L. ACIDOPHILUS/BIFID. ANIMALIS (CHEWABLE PROBIOTIC ORAL) Take by mouth daily . PANTOPRAZOLE (PROTONIX) 40 MG TABLET Take 1 (one) tablet (40 mg total) by mouth daily . POLYCARBOPHIL (FIBERCON) 625 MG TABLET Take 625 mg by mouth daily . VENLAFAXINE (EFFEXOR-XR) 150 MG 24 HR CAPSULE Take 1 (one) capsule (150 mg total) by mouth daily . Modified Medications Modified Medication Previous Medication FAMOTIDINE (PEPCID) 40 MG TABLET famotidine (PEPCID) 40 MG tablet Take 1 (one) tablet (40 mg total) by mouth daily . Take 1 (one) tablet (40 mg total) by mouth daily. Discontinued Medications No medications on file Review of Systems Review of Systems Constitutional: Positive for appetite change, fatigue and unexpected weight change. Negative for activity change. HENT: Negative for hearing loss. Eyes: Negative for visual disturbance. Respiratory: Negative for cough, chest tightness, shortness of breath and wheezing. Cardiovascular: Negative for chest pain and palpitations. Gastrointestinal: Positive for abdominal pain, diarrhea, nausea and vomiting (occasional). Negativefor blood in stool, constipation and rectal pain. Musculoskeletal: Positive for back pain. Negative for gait problem. Skin: Positive for pallor. Psychiatric/Behavioral: Positive for decreased concentration, dysphoric mood and sleep disturbance.Negative for agitation, self-injury and suicidal ideas. The patient is not nervous/anxious. Vitals: 04/25/19 1543 BP: 123/84 BP Location: Left arm Patient Position: Sitting BP Cuff Size: Adult Pulse: 70 Resp: 18 Temp: 98 F (36.7 C) TempSrc: Oral SpO2: 98% Weight: 54.9 kg (121 lb) Height: 5' 8 Body mass index is 18.4 kg/m . Physical Exam Physical Exam Constitutional: She is oriented to person, place, and time. She appears well- developed. She appearscachectic. Very pleasant, thin chronically ill appearing female HENT: Right Ear: External ear normal. Left Ear: External ear normal. Nose: Nose normal. Mouth/Throat: Oropharynx is clear and moist and mucous membranes are normal. Eyes: Conjunctivae, EOM and lids are normal. Neck: Normal range of motion. Cardiovascular: Normal rate, regular rhythm and normal heart sounds. No murmur heard. Pulmonary/Chest: Effort normal and breath sounds normal. Musculoskeletal: Comments: Normal gait Neurological: She is alert and oriented to person, place, and time. GCS eye subscore is 4. GCS verbal subscore is 5. GCS motor subscore is 6. Skin: Skin is warm and dry. Psychiatric: She has a normal mood and affect. Her speech is normal and behavior is normal. No data recorded Assessment/Plan Problem List Items Addressed This Visit Other Nicotine dependence - Primary Relevant Orders CT Chest Low Dose Lung Diagnostic - Only [facility] Weight loss Relevant Orders CT Chest Low Dose Lung Diagnostic - Only [facility] Other Visit Diagnoses Chronic cough Relevant Orders CT Chest Low Dose Lung Diagnostic - Only [facility] Need for influenza vaccination Relevant Medications flu vac qv 2019,18yr up,rc,PF, (FLUBLOK QUAD) syringe Other Relevant Orders Influenza vaccine IIV4 18 yo or >,Flublok Quad (Completed) Preventative Goals Goals better food choices You need to cut out all the coffee and high acidic foods. Coping and Emotions Coping and Emotions: Manage stress Adapt to lifestyle changes Get support from family / friends For any new medications prescribed today, patient was educated about indications for the medication, how to take the medication and potential side effects of the medications. Angi Schmidt CNP documented in this encounter* Angi Schmidt CNP - 07/23/2019 4:43 PM EST Subjective Patient ID: Miladys Ernandez is a 49 y.o. female. Patient is here for a routine interval visit to check her weight. She states her weight at home hasbeen between 121 and 124#. She has had EGD/Colonoscopy and been seen by infectious disease with no real answers for her continued loose stools and weight loss. Patient states the loose stools are just as bad as they were before she took the antibiotics for EPEC. She is interested in seeing program host to find some answers. Colonoscopy/EGD done by Dr. Tracy 05/01/[address] Tracy: Mild colitis found on the colon biopsy Avoid Aspirin, Motrin, Ibuprofen, Alieve, (NSAIDs) use Tylenol for pain as needed Utilize immodium over the counter for diarrhea as the colitis can sometime cause that The esophagus nodule was benign and does not need anything further Repeat colonoscopy in 5 years The following were reviewed and updated as appropriate for today's visit: allergies, current medications, past family history, past medical history, past social history, past surgical history and problem list. Patient's Medications New Prescriptions LOPERAMIDE (IMODIUM A-D) 2 MG TABLET Take 1 (one) tablet (2 mg total) by mouth 4 (four) times a dayas needed for diarrhea . Previous Medications BUPRENORPHINE HCL (SUBUTEX) [address] 8 mg under the tongue 2 (two) times a day . FAMOTIDINE (PEPCID) 40 MG TABLET Take 1 (one) tablet (40 mg total) by mouth daily . FLU VAC QV 2019,18YR UP,RC,PF, (FLUBLOK QUAD) SYRINGE Sign this order in conjunction with the immunization order to satisfy [place] Board of Pharmacy Positive ID requirements for immunization orders. . GABAPENTIN (NEURONTIN) 600 MG TABLET Take 600 mg by mouth 4 (four) times a day. L. ACIDOPHILUS/BIFID. ANIMALIS (CHEWABLE PROBIOTIC ORAL) Take by mouth daily . PANTOPRAZOLE (PROTONIX) 40 MG TABLET Take 1 (one) tablet (40 mg total) by mouth daily . POLYCARBOPHIL (FIBERCON) 625 MG TABLET Take 625 mg by mouth daily . PSYLLIUM SEED, WITH DEXTROSE, (FIBER ORAL) Take by mouth . VENLAFAXINE (EFFEXOR-XR) 150 MG 24 HR CAPSULE Take 1 (one) capsule (150 mg total) by mouth daily . Modified Medications No medications on file Discontinued Medications No medications on file Review of Systems Review of Systems Constitutional: Positive for appetite change, fatigue and unexpected weight change. Negative for activity change. HENT: Negative for hearing loss. Eyes: Negative for visual disturbance. Respiratory: Negative for cough, chest tightness, shortness of breath and wheezing. Cardiovascular: Negative for chest pain and palpitations. Gastrointestinal: Positive for abdominal pain, diarrhea, nausea and vomiting (occasional). Negativefor blood in stool, constipation and rectal pain. Musculoskeletal: Positive for back pain. Negative for gait problem. Skin: Positive for pallor. Psychiatric/Behavioral: Positive for decreased concentration, dysphoric mood and sleep disturbance.Negative for agitation, self-injury and suicidal ideas. The patient is not nervous/anxious. Vitals: 07/23/19 1622 BP: 104/70 BP Location: Left arm Patient Position: Sitting BP Cuff Size: Adult Pulse: 70 Resp: 18 Temp: 98 F (36.7 C) TempSrc: Oral SpO2: 98% Weight: 56.2 kg (124 lb) Height: 5' 8 Body mass index is 18.85 kg/m . Physical Exam Physical Exam Constitutional: She is oriented to person, place, and time. She appears well- developed. She appearscachectic. Very pleasant, thin chronically ill appearing female HENT: Right Ear: External ear normal. Left Ear: External ear normal. Nose: Nose normal. Mouth/Throat: Oropharynx is clear and moist and mucous membranes are normal. Eyes: Conjunctivae, EOM and lids are normal. Neck: Normal range of motion. Cardiovascular: Normal rate, regular rhythm and normal heart sounds. No murmur heard. Pulmonary/Chest: Effort normal and breath sounds normal. Musculoskeletal: Comments: Normal gait Neurological: She is alert and oriented to person, place, and time. GCS eye subscore is 4. GCS verbal subscore is 5. GCS motor subscore is 6. Skin: Skin is warm and dry. Psychiatric: She has a normal mood and affect. Her speech is normal and behavior is normal. No data recorded Assessment/Plan Problem List Items Addressed This Visit Other Diarrhea - Primary I want you to quit taking Pepto every single day and start using imodium as needed for loose stools. You can also take metamucil daily to help firm up stools. Relevant Orders Ambulatory referral to Gastroenterology Weight loss Relevant Orders Ambulatory referral to Gastroenterology Preventative Goals Goals better food choices You need to cut out all the coffee and high acidic foods. Coping and Emotions Coping and Emotions: Manage stress Adapt to lifestyle changes Get support from family / friends For any new medications prescribed today, patient was educated about indications for the medication, how to take the medication and potential side effects of the medications. Angi Schmidt CNP documented in this encounter* Abhay Keyes MD - 08/20/2019 9:06 AM EST 08/20/2019 Miladys Ernandez is a 49 y.o. female here today for evaluation of Consult (diarrhea and weight loss states has improved since starting loperamide) HPI: The patient has had very loose BMs even up to ten times a day for which she has been worked up. Shehas had no fever, blood in the stool. The quality of stool is medium and it is not associated with any painful bowel movements. She has had extensive work-up including colonoscopy and EGD and colonoscopy showed lymphocytic colitis. She is on several medications including Subutex and Effexor. She has lost significant amount of weight without trying to lose weight. There is no postprandial abdominal pain. She has been using loperamide for control of diarrhea. Past Medical History: Diagnosis Date Alcohol dependence (HCC) in treatment for [address] Mair Back pain Chronic pain disorder Foot abscess 10/19/2018 Info Gained From: [facility] ED report --- Jeremi Sanford MD Sciatica 2007 Dr. Mari Past Surgical History: Procedure Laterality Date COLONOSCOPY [facility] [place] COLONOSCOPY N/A 05/01/2019 Procedure: COLONOSCOPY with biopsy; Surgeon: Camelia Tracy MD; Location: [facility] [place] [facility]; Service: General Surgery D&C (DIL & CURETTAGE, SHARP W/ SUCTION) 1990 EGD N/A 05/01/2019 Procedure: ESOPHAGOGASTRODUODENOSCOPY with biopsy; Surgeon: Camelia Tracy MD; Location: [facility]; Service: General Surgery ESOPHAGOGASTRODUODENOSCOPY HYSTERECTOMY 11/10/2009 [facility], vaginal with right salpingo-oophorectomy......Dr. Canales TUBAL LIGATION No Known Allergies Prior to Admission medications Medication Sig Start Date End Date Taking? Authorizing Provider buprenorphine HCl (SUBUTEX) [address] 8 mg under the tongue 2 (two) times a day . 10/05/17 Yes Historical Provider, famotidine (PEPCID) 40 MG tablet Take 1 (one) tablet (40 mg total) by mouth daily . 04/25/19 04/24/20 Yes Angi Schmidt CNP gabapentin (NEURONTIN) 600 MG tablet Take 600 mg by mouth 4 (four) times a day. 07/27/15 Yes Historical Provider, loperamide (IMODIUM) 2 mg capsule Take 2 mg by mouth 4 (four) times a day as needed . 07/23/19 Yes Historical Provider, pantoprazole (PROTONIX) 40 MG tablet Take 1 (one) tablet (40 mg total) by mouth daily . 03/05/19 Yes Angi Schmidt CNP polycarbophil (FIBERCON) 625 mg tablet Take 625 mg by mouth daily . Yes Historical Provider, psyllium seed, with dextrose, (FIBER ORAL) Take by mouth . Yes Historical Provider, venlafaxine (EFFEXOR-XR) 150 MG 24 hr capsule Take 1 (one) capsule (150 mg total) by mouth daily . 03/05/19 Yes Angi Schmidt CNP L. acidophilus/Bifid. animalis (CHEWABLE PROBIOTIC ORAL) Take by mouth daily . Historical Provider, flu vac qv 2019,18yr up,rc,PF, (FLUBLOK QUAD) syringe Sign this order in conjunction with the immunization order to satisfy [place] Board of Pharmacy Positive ID requirements for immunization orders. . 04/25/19 08/20/19 Angi Schmidt CNP Social History Socioeconomic History Marital status: Spouse name: Not on file Number of children: Not on file Years of education: Not on file Highest education level: Not on file Occupational History Not on file Social Needs Financial resource strain: Not on file Food insecurity Worry: Never true Inability: Never true Transportation needs Medical: Not on file Non-medical: Not on file Tobacco Use Smoking status: Current Every Day Smoker Packs/day: 2.00 Years: 35.00 Pack years: 70.00 Smokeless tobacco: Never Used Tobacco comment: Patient needs to quit smoking Substance and Sexual Activity Alcohol use: No Drug use: Yes Types: Subutex Sexual activity: Not Currently Partners: Male Lifestyle Physical activity Days per week: Not on file Minutes per session: Not on file Stress: Not on file Relationships Social connections Talks on phone: Not on file Gets together: Three times a week Attends muslim service: Not on file Active member of club or organization: Not on file Attends meetings of clubs or organizations: Not on file Relationship status: Not on file Other Topics Concern Not on file Social History Narrative Not on file Family History Problem Relation Age of Onset Arthritis Mother COPD Mother Depression Mother Heart disease Mother Kidney disease Mother Colon cancer Father Cancer Sister Cancer Maternal Grandmother Cancer Paternal Grandmother ROS: Constitutional: Negative Respiratory: Negative for cough, PND and expectoration. SOB. Cardiovascular: Negative for anginal pain, orthopnea or swelling of ankles Gastrointestinal: See HPI for details. : NO hematuria, burning pain on micturition or lumbar pain BP 132/77 Pulse 70 Temp 97.8 F (36.6 C) (Oral) Resp 18 Ht 5' 8 Wt 58.1 kg (128 lb 1.6 oz) SpO2 95% BMI 19.48 kg/m 58.1 kg (128 lb 1.6 oz) 5' 8 Body mass index is 19.48 kg/m . Physical Exam Constitutional: Patient is oriented to person, place, and time. Well-developed. Thin. No acute distress.Patient appears well Eyes: No icterus is noted. Cardiovascular: Normal rate, rhythm, and normal heart sounds. Exam reveals no friction rub. No murmur heard. Pulmonary: Normal chest expansion. No respiratory distress. No rales or wheezes are heard. Abdominal: Soft. Normal appearance and bowel sounds are normal. No distension and no mass. No hepatosplenomegaly is detected. Mild tenderness in the upper abd. without any rebound or rigidity. 1. Diarrhea, unspecified type Ambulatory referral to Gastroenterology 2. Weight loss Ambulatory referral to Gastroenterology Orders Placed This Encounter loperamide (IMODIUM) 2 mg capsule Review of Medications: The current medications are reviewed from the GI perspective. No results found for this or any previous visit (from the past 1344 hour(s)). Assessment and Recommendation: There are several possible etiologies of diarrhea. Lymphocytic colitis is one of them. Several psych medicines are known to be associated with increased incidence of lymphocytic colitis. The patient has not been avoiding lactose. However lactose intolerance generally is not associated with weight loss. Celiac disease is another possibility that can explain both diarrhea and weight loss. We discussed management options at length. She is advised to avoid her lactulose completely for 1 week. Afterconsuming significant amount of wheat celiac serology can be checked. She can also discussed with her PCP any adjustment in her psych medicines so that some other medicine that could be possibly caused the side effect of constipation can replace one of the current medications. Follow-up in a few weeks. A total of 45 minutes were spent [id number] for this visit with more than 50% of the time spent in counseling and management. Sincerely; Abhay Keyes MD CC: Angi Schmidt CNP IMPORTANT: Please note that some portions of this note may have been created using [employer] voice recognition software. Some sound-like and a totally wrong word substitutions may have taken place dueto known inherent limitations of any such software, including this voice recognition software. In spite of efforts to eliminate such errors, some may not have been corrected, so please read the note with this in mind and recognize such mistakes and understand the correct version using the context. documented in this encounter* Angi Schmidt CNP - 11/07/2019 9:35 AM EDT Subjective Patient ID: Miladys Ernandez is a 49 y.o. female. Patient is here today for an in person visit for concerns with continued loose stools. She states she also had an episode earlier this week where she felt like her legs went numb and she had little to no control over her legs. Loose stools: Patient was seen by gastroenterology Dr. Keyes on 08/20/2019 and he was trying to get records from Dr Carreon infectious disease to see if her loose stools were caused by the EPEC infection. She states since that time she has continued to have loose stools on a daily basis and will at times be incontinent of stool and she will need to leave work to change her clothes. She is using Loperamide multiple times a day to help with the loose stools. Dental pain: Patient states over the past few weeks she has had worsening gum pain associated with her gingivitis. She states it is all of her teeth but the lower left molars is where the pain is theworst. She is using a [employer] brand of mouth wash and it is not helping with the pain. She states due to the pain she is using more of her Gabapentin than prescribed. She is currently [id number] mg 4 times a day. She states she is taking at least 1-3 more tablets a day to help with the pain. She states she has been doing this over the past 2-3 weeks. She is very hesitant to give answers when asked exactly what she has been taking. Talked at length about the side effects of Gabapentin and these can include nausea, vomiting, diarrhea, and ataxia. Leg numbness: She states over the past week she has noticed periods of time where it will feel likeher legs are numb or she has little control over her legs. She states for two hours at work the other day her legs were jumping and she has no control over them, she states she was having difficulty walking. Explained definition of Ataxia and patient states that's exactly how I have been feeling. She states she has been feeling drunk and fatigued. The following were reviewed and updated as appropriate for today's visit: allergies, current medications, past family history, past medical history, past social history, past surgical history and problem list. Patient's Medications New Prescriptions AMOXICILLIN-CLAVULANATE (AUGMENTIN) 875-125 MG PER TABLET Take 1 (one) tablet by mouth 2 (two) times a day . CHLORHEXIDINE (PERIDEX) 0.12 % SOLUTION Apply 15 mL to the mouth or throat 2 (two) times a day for 14 days . Previous Medications BUPRENORPHINE HCL (SUBUTEX) [address] 8 mg under the tongue 2 (two) times a day . FAMOTIDINE (PEPCID) 40 MG TABLET Take 1 (one) tablet (40 mg total) by mouth daily . GABAPENTIN (NEURONTIN) 600 MG TABLET Take 600 mg by mouth 4 (four) times a day. L. ACIDOPHILUS/BIFID. ANIMALIS (CHEWABLE PROBIOTIC ORAL) Take by mouth daily . PANTOPRAZOLE (PROTONIX) 40 MG TABLET Take 1 (one) tablet (40 mg total) by mouth daily . POLYCARBOPHIL (FIBERCON) 625 MG TABLET Take 625 mg by mouth daily . PSYLLIUM SEED, WITH DEXTROSE, (FIBER ORAL) Take by mouth . VENLAFAXINE (EFFEXOR-XR) 150 MG 24 HR CAPSULE Take 1 (one) capsule (150 mg total) by mouth daily . Modified Medications Modified Medication Previous Medication LOPERAMIDE (IMODIUM) 2 MG CAPSULE loperamide (IMODIUM) 2 mg capsule Take 1 (one) capsule (2 mg total) by mouth every 4 (four) hours as needed . Take 2 mg by mouth every 4 (four) hours as needed . Discontinued Medications No medications on file Review of Systems Review of Systems Constitutional: Positive for appetite change, fatigue and unexpected weight change. Negative for activity change. HENT: Positive for dental problem and mouth sores. Negative for hearing loss. Eyes: Negative for visual disturbance. Respiratory: Negative for cough, chest tightness, shortness of breath and wheezing. Cardiovascular: Negative for chest pain and palpitations. Gastrointestinal: Positive for abdominal pain, diarrhea, nausea and vomiting (occasional). Negativefor blood in stool, constipation and rectal pain. Musculoskeletal: Positive for back pain and gait problem. Skin: Positive for pallor. Psychiatric/Behavioral: Positive for decreased concentration, dysphoric mood and sleep disturbance.Negative for agitation, self-injury and suicidal ideas. The patient is not nervous/anxious. Vitals: 11/07/19 0859 BP: 112/70 BP Location: Right arm Patient Position: Sitting BP Cuff Size: Adult Pulse: 79 Resp: 16 Temp: 97.5 F (36.4 C) TempSrc: Oral SpO2: 94% Weight: 60.1 kg (132 lb 8 oz) Height: 5' 8 Body mass index is 20.15 kg/m . Physical Exam Physical Exam Constitutional: She is oriented to person, place, and time. She appears well- developed. She appearscachectic. Very pleasant, thin chronically ill appearing female HENT: Right Ear: External ear normal. Left Ear: External ear normal. Nose: Nose normal. Mouth/Throat: Oropharynx is clear and moist and mucous membranes are normal. Eyes: Conjunctivae, EOM and lids are normal. Neck: Normal range of motion. Cardiovascular: Normal rate, regular rhythm and normal heart sounds. No murmur heard. Pulmonary/Chest: Effort normal and breath sounds normal. Neurological: She is alert and oriented to person, place, and time. GCS eye subscore is 4. GCS verbal subscore is 5. GCS motor subscore is 6. Skin: Skin is warm and dry. Psychiatric: She has a normal mood and affect. Her speech is normal and behavior is normal. No data recorded Assessment/Plan Problem List Items Addressed This Visit Digestive Gingivitis, acute We need to get the gingivitis under better control. You can not be taking more Gabapentin than prescribed, this is likely one of the causes of the diarrhea and your loss of control of your legs. Thisis a controlled substance and could void your agreement with DR. Beasley, this is very serious and I suggest you stop this practice immediately. Relevant Medications chlorhexidine (PERIDEX) 0.12 % solution amoxicillin-clavulanate (AUGMENTIN) 875-125 mg per tablet Other Diarrhea - Primary Keep your apt with gastroenterology next Monday, I would like to see what his opinion is on your chronic loose stools and EPEC infection. Relevant Medications loperamide (IMODIUM) 2 mg capsule Other Relevant Orders Comprehensive Metabolic Panel CBC and Differential TSH with Reflex Free T4 Magnesium Weight loss Relevant Orders Comprehensive Metabolic Panel CBC and Differential TSH with Reflex Free T4 Magnesium 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) Will be sending message to Dr. Beasley. Preventative Goals Goals better food choices You need to cut out all the coffee and high acidic foods. Coping and Emotions Coping and Emotions: Manage stress Adapt to lifestyle changes Get support from family / friends For any new medications prescribed today, patient was educated about indications for the medication, how to take the medication and potential side effects of the medications. Angi Schmidt CNP documented in this encounter* Angi Schmidt CNP - 11/15/2019 9:26 AM EDT Subjective Patient ID: Miladys Ernandez is a 49 y.o. female. Patient is here today for an acute visit. Yesterday she called in and stated that... PT STATED ON Monday EVENING TO Monday MORNING THAT SHE WAS SO FATIGUE & JUST COULDN'T DO ANYTHING STATED SHE HAS HAD SWEATS X3 NIGHTS NO FEVER SHE HAS CALLED OFF WORK FOR THREE NIGHTS PT STATED SHE WENT BACK TO WORK LAST NIGHT AN NOW IS NOTICING A RED RASH ON HER RIGHT ARM Patient today states that she has never felt better, she states overall she feels great. She statesthis past Monday she stopped all of her medications except Suboxone, Gabapentin, and Fiber. Reviewed list of withdrawal side effects from Effexor and she states she had every single one of those withdrawal symptoms. Patient does not want to go back on any of the medications. She states she has not felt this great in years. She was going to cancel her apt with GI. Recommended she hold off on cancelling until closer to apt to see if symptoms have truly resolved. The following were reviewed and updated as appropriate for today's visit: allergies, current medications, past family history, past medical history, past social history, past surgical history and problem list. Patient's Medications New Prescriptions No medications on file Previous Medications BUPRENORPHINE HCL (SUBUTEX) [address] 8 mg under the tongue 2 (two) times a day . GABAPENTIN (NEURONTIN) 600 MG TABLET Take 600 mg by mouth 4 (four) times a day. LOPERAMIDE (IMODIUM) 2 MG CAPSULE Take 1 (one) capsule (2 mg total) by mouth every 4 (four) hours as needed . POLYCARBOPHIL (FIBERCON) 625 MG TABLET Take 625 mg by mouth daily . Modified Medications No medications on file Discontinued Medications AMOXICILLIN-CLAVULANATE (AUGMENTIN) 875-125 MG PER TABLET Take 1 (one) tablet by mouth 2 (two) times a day . CHLORHEXIDINE (PERIDEX) 0.12 % SOLUTION Apply 15 mL to the mouth or throat 2 (two) times a day for 14 days . FAMOTIDINE (PEPCID) 40 MG TABLET Take 1 (one) tablet (40 mg total) by mouth daily . L. ACIDOPHILUS/BIFID. ANIMALIS (CHEWABLE PROBIOTIC ORAL) Take by mouth daily . PANTOPRAZOLE (PROTONIX) 40 MG TABLET Take 1 (one) tablet (40 mg total) by mouth daily . PSYLLIUM SEED, WITH DEXTROSE, (FIBER ORAL) Take by mouth . VENLAFAXINE (EFFEXOR-XR) 150 MG 24 HR CAPSULE Take 1 (one) capsule (150 mg total) by mouth daily . Review of Systems Review of Systems Constitutional: Negative for activity change, fatigue and unexpected weight change. HENT: Negative for hearing loss. Eyes: Negative for visual disturbance. Respiratory: Negative for cough, chest tightness and shortness of breath. Cardiovascular: Negative for chest pain and palpitations. Gastrointestinal: Positive for diarrhea. Negative for blood in stool, nausea and vomiting. Musculoskeletal: Negative for gait problem. Skin: Negative. Psychiatric/Behavioral: Negative for agitation, decreased concentration, dysphoric mood and sleep disturbance. The patient is not nervous/anxious. Vitals: 11/15/19 0809 BP: 123/85 BP Location: Right arm Patient Position: Sitting BP Cuff Size: Adult Pulse: 95 Resp: 18 Temp: 98.1 F (36.7 C) TempSrc: Oral SpO2: 98% Weight: 59.3 kg (130 lb 11.2 oz) Height: 5' 8 Body mass index is 19.87 kg/m . Physical Exam Physical Exam Constitutional: She is oriented to person, place, and time. She appears well- developed and well-nourished. HENT: Right Ear: External ear normal. Left Ear: External ear normal. Nose: Nose normal. Mouth/Throat: Oropharynx is clear and moist and mucous membranes are normal. Eyes: Conjunctivae, EOM and lids are normal. Neck: Normal range of motion. Cardiovascular: Normal rate, regular rhythm and normal heart sounds. No murmur heard. Pulmonary/Chest: Effort normal and breath sounds normal. Neurological: She is alert and oriented to person, place, and time. GCS eye subscore is 4. GCS verbal subscore is 5. GCS motor subscore is 6. Skin: Skin is warm and dry. Psychiatric: She has a normal mood and affect. Her speech is normal and behavior is normal. No data recorded Assessment/Plan Problem List Items Addressed This Visit Other Depression with anxiety Most of your symptoms have improved with coming off of your Effexor and other medications. We will see how you feel as the next few weeks go on. Let me know if symptoms return or you start to feel worse. Preventative Goals Goals better food choices You need to cut out all the coffee and high acidic foods. Coping and Emotions Coping and Emotions: Manage stress Adapt to lifestyle changes Get support from family / friends For any new medications prescribed today, patient was educated about indications for the medication, how to take the medication and potential side effects of the medications. Angi Schmidt CNP documented in this encounter* Angi Schmidt CNP - 10/15/2019 12:39 PM EDT Subjective Patient ID: Miladys Ernandez is a 49 y.o. female. This visit was completed via telephone due to the restrictions of the COVID-19 pandemic. All issuesas below were discussed and addressed but no physical exam was performed. If it was felt that the patient should be evaluated in the clinic then they were directed there. The patient verbally consented to this visit. Spent a lot of time on phone talking about her Mom Anila who is currently in [place]. Patient is very concerned with how she will care for mom when it is time to bring her home, encouraged Miladys to talked to [facility] social secretary to help with these decisions. Encouraged her to call our office with furtherconcerns related to her mom. Loose stools: Patient states she was seen by GI but not given any concrete answers. She is still having off an on severe loose stools, bad enough she has to leave work at times. She states Dr. Keyes was waiting on records from Dr. Carreon, we did send request for records. She states she has been taking Imodium frequently and would like refill. Will put in referral for patient to be seen by Dr. Amador for second opinion. She states her weight has been stable tat 130#. The following were reviewed and updated as appropriate for today's visit: allergies, current medications, past family history, past medical history, past social history, past surgical history and problem list. Patient's Medications New Prescriptions LOPERAMIDE (IMODIUM A-D) 2 MG TABLET Take 1 (one) tablet (2 mg total) by mouth 4 (four) times a dayas needed for diarrhea . Previous Medications BUPRENORPHINE HCL (SUBUTEX) [address] 8 mg under the tongue 2 (two) times a day . FAMOTIDINE (PEPCID) 40 MG TABLET Take 1 (one) tablet (40 mg total) by mouth daily . GABAPENTIN (NEURONTIN) 600 MG TABLET Take 600 mg by mouth 4 (four) times a day. L. ACIDOPHILUS/BIFID. ANIMALIS (CHEWABLE PROBIOTIC ORAL) Take by mouth daily . PANTOPRAZOLE (PROTONIX) 40 MG TABLET Take 1 (one) tablet (40 mg total) by mouth daily . POLYCARBOPHIL (FIBERCON) 625 MG TABLET Take 625 mg by mouth daily . PSYLLIUM SEED, WITH DEXTROSE, (FIBER ORAL) Take by mouth . VENLAFAXINE (EFFEXOR-XR) 150 MG 24 HR CAPSULE Take 1 (one) capsule (150 mg total) by mouth daily . Modified Medications No medications on file Discontinued Medications LOPERAMIDE (IMODIUM) 2 MG CAPSULE Take 2 mg by mouth 4 (four) times a day as needed . Review of Systems Review of Systems Constitutional: Positive for appetite change, fatigue and unexpected weight change. Negative for activity change. HENT: Negative for hearing loss. Eyes: Negative for visual disturbance. Respiratory: Negative for cough, chest tightness, shortness of breath and wheezing. Cardiovascular: Negative for chest pain and palpitations. Gastrointestinal: Positive for abdominal pain, diarrhea, nausea and vomiting (occasional). Negativefor blood in stool, constipation and rectal pain. Musculoskeletal: Positive for back pain. Negative for gait problem. Skin: Positive for pallor. Psychiatric/Behavioral: Positive for decreased concentration, dysphoric mood and sleep disturbance.Negative for agitation, self-injury and suicidal ideas. The patient is not nervous/anxious. There were no vitals filed for this visit. There is no height or weight on file to calculate BMI. Physical Exam Physical Exam No data recorded Assessment/Plan Problem List Items Addressed This Visit Digestive Acute gastritis - Primary Duodenitis Relevant Orders Ambulatory referral to Gastroenterology Other Diarrhea Relevant Orders Ambulatory referral to Gastroenterology Weight loss Relevant Orders Ambulatory referral to Gastroenterology Preventative Goals Goals better food choices You need to cut out all the coffee and high acidic foods. Coping and Emotions Coping and Emotions: Manage stress Adapt to lifestyle changes Get support from family / friends I have spend 12 minutes with the patient on the phone discussing current HPI. For any new medications prescribed today, patient was educated about indications for the medication, how to take the medication and potential side effects of the medications. Angi Schmidt CNP documented in this encounter* Charlette Cespedes RN - 02/04/2020 5:30 PM EDT PT AWARE OF 02/11/2020 120PM APPT DATE/TIME. MESSAGE SENT TO SHAYAN JOI FOR SCHEDULING. * Angi Schmidt CNP - 02/04/2020 5:01 PM EDT Can we get this patient on the schedule, looks like opening 02/11/2020 at 120 pm, check with patient. * Sandra Suazo RN - 02/04/2020 3:10 PM EDT Chronic care outreach for life event-Recent loss of mother. Has support sytem of daughter and brother in law. Trying to eat weight currently ~ #130. Struggling with Subutex dosing, and currently taking 4 mg podaily until next refill on 02/15/20. No suicidal thoughts or plans. Voices future plans to discuss rehabilitation, it's just time I can't take it forever . Support offered outreach made for scheduling. Pt. available to schedule 02/11/20 @ 1120 with PCP. No future appointments. documented in this encounter* Angi Schmidt CNP - 02/26/2020 12:51 PM EDT Subjective Patient ID: Miladys Ernandez is a 49 y.o. female. Patient is here today for a well check due to her mother passing on 01/31/2020. This provider is very familiar with Miladys and her mothers close relationship and this patient has significant risk factors putting her at risk for declining health with the of her mother. This patient is on Suboxone and an ex addict. Patient states today that she is thinking about not going back to work right now and putting herself into rehab to come off of suboxone completely. She states that she is using too much Gabapentin and Suboxone at the beginning of the month and then running out and going through withdrawal by the end of the month. She states socially she is also going to have issues because her[employer] check paid for the rent on the house she is living in. This patient is in need of finding new housing options [facility]. The following were reviewed and updated as appropriate for today's visit: allergies, current medications, past family history, past medical history, past social history, past surgical history and problem list. Patient's Medications New Prescriptions No medications on file Previous Medications BUPRENORPHINE HCL (SUBUTEX) [address] 8 mg under the tongue 2 (two) times a day . GABAPENTIN (NEURONTIN) 600 MG TABLET Take 600 mg by mouth 4 (four) times a day. LOPERAMIDE (IMODIUM) 2 MG CAPSULE Take 1 (one) capsule (2 mg total) by mouth every 4 (four) hours as needed . POLYCARBOPHIL (FIBERCON) 625 MG TABLET Take 625 mg by mouth daily . Modified Medications No medications on file Discontinued Medications No medications on file Review of Systems Review of Systems Constitutional: Negative for activity change, fatigue and unexpected weight change. HENT: Negative for hearing loss. Eyes: Negative for visual disturbance. Respiratory: Negative for cough, chest tightness and shortness of breath. Cardiovascular: Negative for chest pain and palpitations. Gastrointestinal: Positive for diarrhea. Negative for blood in stool, nausea and vomiting. Musculoskeletal: Negative for gait problem. Skin: Negative. Psychiatric/Behavioral: Positive for dysphoric mood. Negative for agitation, decreased concentration and sleep disturbance. The patient is nervous/anxious. Vitals: 02/11/20 1324 BP: (!) 146/65 BP Location: Left arm Patient Position: Sitting BP Cuff Size: Adult Pulse: 87 Resp: 18 Temp: 99.1 F (37.3 C) TempSrc: Temporal SpO2: 97% Weight: 58.1 kg (128 lb) Height: 5' 8 Body mass index is 19.46 kg/m . Physical Exam Physical Exam Constitutional: She is oriented to person, place, and time. She appears well- developed and well-nourished. HENT: Right Ear: External ear normal. Left Ear: External ear normal. Nose: Nose normal. Mouth/Throat: Oropharynx is clear and moist and mucous membranes are normal. Eyes: Conjunctivae, EOM and lids are normal. Neck: Normal range of motion. Cardiovascular: Normal rate, regular rhythm and normal heart sounds. No murmur heard. Pulmonary/Chest: Effort normal and breath sounds normal. Neurological: She is alert and oriented to person, place, and time. GCS eye subscore is 4. GCS verbal subscore is 5. GCS motor subscore is 6. Skin: Skin is warm and dry. Psychiatric: Her speech is normal and behavior is normal. She exhibits a depressed mood. tearful OARRS/NARxCHECK Report Received and Assessed: No data found Date controlled substance agreement signed: No data found Date of last drug screen: No data found Functional Assessment: No data found Assessment/Plan Problem List Items Addressed This Visit Other 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) Right now is not a good time to try to come completely off of Suboxone. For right now I would like you to work on taking your medications as prescribed. You need to learn to quit using the Suboxone and Gabapentin as a crutch for day to day stressors. You need to use these medications appropriately.Once you learn to address your problems appropriately you will be more successful on weaning off ofthe Suboxone. Right now worry about taking your medications right, keeping your job, and finding a new apartment. If at any point you feel like you are falling off the wagon please call and let me know. Use me as a resource! Preventative Goals Goals better food choices You need to cut out all the coffee and high acidic foods. Coping and Emotions Coping and Emotions: Manage stress Adapt to lifestyle changes Get support from family / friends For any new medications prescribed today, patient was educated about indications for the medication, how to take the medication and potential side effects of the medications. Angi Schmidt CNP documented in this encounter* Angi Schmidt CNP - 03/30/2020 2:04 PM EDT Subjective Patient ID: Miladys Ernandez is a 49 y.o. female. Patient is here today for routine follow up. She was here 6 weeks ago and was struggling with the of her mother. She states that she is doing really well in the past 6 weeks. She has been taking all of her medications as prescribed. She states she is no longer taking extra doses of Gabapentinor Subutex. She states she was able to stay in her apartment due to a family friend staying and helping her. Patient states her appetite has been stable and she is not losing weight. She states overall she feels like she is doing well. Low back pain: Patient states that she has struggled with low back pain for years. She states she was told she has DDD in her lower spine and a bone spur causing sciatica down her left leg. She states in the past few months she has now noticed a numbness and tingling down both legs. She states at times her buttocks is tingling and she will have tingling all the way to her toes on both legs. The following were reviewed and updated as appropriate for today's visit: allergies, current medications, past family history, past medical history, past social history, past surgical history and problem list. Patient's Medications New Prescriptions No medications on file Previous Medications ALPRAZOLAM (NIRAVAM) 0.5 MG DISSOLVABLE TABLET Dissolve 0.5 mg on top of tongue daily as needed TAKE NEEDED FOR ANXIETY . BUPRENORPHINE HCL (SUBUTEX) [address] 8 mg under the tongue 2 (two) times a day . GABAPENTIN (NEURONTIN) 600 MG TABLET Take 600 mg by mouth 4 (four) times a day. LOPERAMIDE (IMODIUM) 2 MG CAPSULE Take 1 (one) capsule (2 mg total) by mouth every 4 (four) hours as needed . POLYCARBOPHIL (FIBERCON) 625 MG TABLET Take 625 mg by mouth daily . Modified Medications No medications on file Discontinued Medications No medications on file Review of Systems Review of Systems Constitutional: Negative for activity change, fatigue and unexpected weight change. HENT: Negative for hearing loss. Eyes: Negative for visual disturbance. Respiratory: Negative for cough, chest tightness and shortness of breath. Cardiovascular: Negative for chest pain and palpitations. Gastrointestinal: Positive for diarrhea. Negative for blood in stool, nausea and vomiting. Musculoskeletal: Positive for back pain. Negative for gait problem. Skin: Negative. Neurological: Positive for numbness. Psychiatric/Behavioral: Positive for dysphoric mood. Negative for agitation, decreased concentration and sleep disturbance. The patient is nervous/anxious. Vitals: 03/30/20 1354 BP: 103/68 BP Location: Left arm Patient Position: Sitting BP Cuff Size: Adult Pulse: 75 Resp: 18 Temp: 98.2 F (36.8 C) TempSrc: Temporal SpO2: 92% Weight: 59 kg (130 lb) Height: 5' 8 Body mass index is 19.77 kg/m . Physical Exam Physical Exam Constitutional: She is oriented to person, place, and time. She appears well- developed and well-nourished. HENT: Right Ear: External ear normal. Left Ear: External ear normal. Nose: Nose normal. Mouth/Throat: Oropharynx is clear and moist and mucous membranes are normal. Eyes: Conjunctivae, EOM and lids are normal. Neck: Normal range of motion. Cardiovascular: Normal rate, regular rhythm and normal heart sounds. No murmur heard. Pulmonary/Chest: Effort normal and breath sounds normal. Neurological: She is alert and oriented to person, place, and time. GCS eye subscore is 4. GCS verbal subscore is 5. GCS motor subscore is 6. Skin: Skin is warm and dry. Psychiatric: She has a normal mood and affect. Her speech is normal and behavior is normal. OARRS/NARxCHECK Report Received and Assessed: No data found Date controlled substance agreement signed: No data found Date of last drug screen: No data found Functional Assessment: No data found Assessment/Plan Problem List Items Addressed This Visit Musculoskeletal and Integument Displacement of lumbar intervertebral disc without myelopathy - Primary Relevant Orders Ambulatory referral to Orthopedic Surgery Other Chronic low back pain Relevant Orders Ambulatory referral to Orthopedic Surgery 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) Continue to follow closely with your drug safety data management specialist. Let me or him know immediatly if you need help or feel like you are going to relapse. Weight loss Weight is stable. Other Visit Diagnoses Numbness and tingling of both lower extremities Relevant Orders Ambulatory referral to Orthopedic Surgery Preventative Goals Goals better food choices You need to cut out all the coffee and high acidic foods. Coping and Emotions Coping and Emotions: Manage stress Adapt to lifestyle changes Get support from family / friends For any new medications prescribed today, patient was educated about indications for the medication, how to take the medication and potential side effects of the medications. [facility] [place] Depression Screening 03/05/2019 04/25/2019 03/30/2020 Little interest or pleasure in doing things 1 2 1 Feeling down, depressed, or hopeless 1 0 1 PHQ-2 Total Score 2 2 2 Trouble falling or staying asleep, or sleeping too much 2 3 1 Feeling tired or having little energy 1 3 1 Poor appetite or overeating 3 3 1 Feeling bad about yourself - or that you are a failure or have let yourself or your family down 1 00 Trouble concentrating on things, such as reading the newspaper or watching television 0 0 0 Moving or speaking so slowly that other people could have noticed. Or the opposite - being so fidgety or restless that you have been moving around a lot more than usual 0 0 0 Thoughts that you would be better off , or of hurting yourself in some way 0 0 0 PHQ-9 Total Score 9 11 5 If you checked off any problems, how difficult have these problems made it for you to do your work,take care of things at home, or get along with other people? Not difficult at all Somewhat difficult Not difficult at all documented in this encounter* Zachary Chin MD - 04/13/2020 2:18 PM EDT [facility] [address] ([address]) [facility] [address] [facility] [id number] Miladys Ernandez is a 49 y.o. female being seen today, 04/13/20, Chief Complaint Patient presents with Lower Back - Pain [chief complaint] low back pain HPI Dictation: History of chronic low back pain up until 6 to 8 weeks ago posterior lateral left thigh lower back over the last 6 to 8 weeks she has had numbing tingly rating below the knees in a nondermatomal pattern aggravated by prolonged walking relieved with sitting with x-rays today showing degenerative disc disease severe at 5 1 to lesser extent L4-5 should be noted she is on Suboxone and gabapentin chronically apparently had some previous epidural injection several years ago which she recalls worked helpful she also has surgery scheduled several years ago for discectomy at 5 1 I believe in the left side though she is not having any radicular left-sided symptoms at present she decaysshe has difficulty taking NSAIDs has not had any physical therapy or other treatment at this point [hpi] Physical Exam Dictation: [PE] exam she has full flexion increased pain with the extremes lumbar extension she can walk on heels and toes equally negative straight leg raising no gross motor or sensory reflex asymmetry noted x-ray findings as indicated Assessment and Plan Dictation: [AP] plan I did recommend physical therapy if not improving to try an epidural injection and eventually a CT if not helpful however unable to have MRI she had a history of some metallic fragment lodged in her tongue and was told she cannot have an MRI for that reason I have reviewed all relevant histories, medications, allergies, and problem list items with Miladys Yue during this visit. Review of Systems Constitutional: Negative for chills and fever. HENT: Negative for congestion. Respiratory: Negative for shortness of breath. Cardiovascular: Negative for chest pain. Gastrointestinal: Negative for diarrhea, nausea and vomiting. Neurological: Negative for headaches. Psychiatric/Behavioral: Negative for behavioral problems. BP (!) 134/91 Pulse 93 Ht 5' 8 Wt 59 kg (130 lb) BMI 19.77 kg/m Imaging: No results found. 1. Lumbar degenerative disc disease 2. Displacement of lumbar intervertebral disc without myelopathy Ambulatory referral to Orthopedic Surgery 3. Chronic bilateral low back pain with left-sided sciatica Ambulatory referral to Orthopedic Surgery 4. Numbness and tingling of both lower extremities Ambulatory referral to Orthopedic Surgery Return in about 6 weeks (around 05/25/2020). Zachary Chin MD documented in this encounter* Sandra Suazo RN - 04/13/2020 3:46 PM EDT Chronic Care follow up no answer - LM documented in this encounter* Marlene Lunsfodr LSW - 07/02/2020 10:43 AM EST SW received call on this date. Reason for call: SW received returned call re: referral for resources for detox program Result: SW received call and VM from patient on this date. SW returned missed call to patient. Patient shared that she is going to try a pill box to manage her prescriptions and shared she has the support of her daughters. Patient denied resources for detox program at this time. SW shared with patient that patient able to outreach SW to discuss resources at a later time if she would like or for any other community resource needs. Patient denied any needs at this time. Will remain available to assist patient as needed. MIGUEL Diaz, VENUS [employer] Tender Care Management [facility] [phone] documented in this encounter* Angi Schmidt CNP - 07/07/2020 1:33 PM EST Subjective Patient ID: Miladys Ernandez is a 49 y.o. female. Patient is here today for a routine interval visit. Weight loss: Noted that patient has lost 7# since her visit 2 months ago. Talked with patient and she states the only medications she is currently taking are her Gabapentin and her Subutex. She states that she is taking her medications too frequently throughout the month and is running out about one week early every single month. One week of every month she is in full withdrawal until it is time for her refills again, she has not notified her drug safety data management specialist that she is not taking her medications as prescribed. She states she is not having issues with weight loss when she is taking her medications appropriately. She states the week she is in withdrawal she suffers from stomach cramps, d iarrhea, fatigue, shakiness, and weight loss. She states she has been without her medications for almost a full week at today's visit. The following were reviewed and updated as appropriate for today's visit: allergies, current medications, past family history, past medical history, past social history, past surgical history and problem list. Patient's Medications New Prescriptions No medications on file Previous Medications BUPRENORPHINE HCL (SUBUTEX) [address] 8 mg under the tongue 2 (two) times a day . GABAPENTIN (NEURONTIN) 600 MG TABLET Take 600 mg by mouth 4 (four) times a day. Modified Medications No medications on file Discontinued Medications ALPRAZOLAM (NIRAVAM) 0.5 MG DISSOLVABLE TABLET Dissolve 0.5 mg on top of tongue daily as needed TAKE NEEDED FOR ANXIETY . LOPERAMIDE (IMODIUM) 2 MG CAPSULE Take 1 (one) capsule (2 mg total) by mouth every 4 (four) hours as needed . MELOXICAM (MOBIC) 15 MG TABLET Take 1 (one) tablet (15 mg total) by mouth daily . POLYCARBOPHIL (FIBERCON) 625 MG TABLET Take 625 mg by mouth daily . Review of Systems Review of Systems Constitutional: Positive for appetite change and fatigue. Negative for activity change and unexpected weight change. HENT: Negative for hearing loss. Eyes: Negative for visual disturbance. Respiratory: Negative for cough, chest tightness and shortness of breath. Cardiovascular: Negative for chest pain and palpitations. Gastrointestinal: Positive for abdominal pain and diarrhea. Negative for blood in stool, nausea andvomiting. Musculoskeletal: Positive for back pain. Negative for gait problem. Skin: Negative. Neurological: Positive for tremors and numbness. Psychiatric/Behavioral: Positive for dysphoric mood. Negative for agitation, decreased concentration and sleep disturbance. The patient is nervous/anxious. Vitals: 06/29/20 1409 BP: 117/79 BP Location: Left arm Patient Position: Sitting BP Cuff Size: Adult Pulse: 72 Resp: 16 Temp: 98.3 F (36.8 C) TempSrc: Oral SpO2: 98% Weight: 55.8 kg (123 lb 1.6 oz) Height: 5' 8 Body mass index is 18.72 kg/m . Physical Exam Physical Exam Constitutional: She is oriented to person, place, and time. She appears well- developed and well-nourished. shaky HENT: Right Ear: External ear normal. Left Ear: External ear normal. Nose: Nose normal. Mouth/Throat: Oropharynx is clear and moist and mucous membranes are normal. Eyes: Conjunctivae, EOM and lids are normal. Neck: Normal range of motion. Cardiovascular: Normal rate, regular rhythm and normal heart sounds. No murmur heard. Pulmonary/Chest: Effort normal and breath sounds normal. Neurological: She is alert and oriented to person, place, and time. GCS eye subscore is 4. GCS verbal subscore is 5. GCS motor subscore is 6. Skin: Skin is warm and dry. Psychiatric: Her speech is normal and behavior is normal. She exhibits a depressed mood. tearful OARRS/NARxCHECK Report Received and Assessed: No data found Date controlled substance agreement signed: No data found Date of last drug screen: No data found Functional Assessment: No data found Assessment/Plan Problem List Items Addressed This Visit Other 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) - Primary Relevant Orders Ambulatory referral to Social Work Ambulatory referral to Care Management Weight loss You need to let Dr. Beasley know that you are not taking your medications appropriately and you are going through withdrawal every single month. You may want to look into going into a rehab facility to get off of the Subutex and off all opioids. You can not afford to continue to lose weight, youneed to make your health a priority. Relevant Orders Ambulatory referral to Social Work Ambulatory referral to Care Management For any new medications prescribed today, patient was educated about indications for the medication, how to take the medication and potential side effects of the medications. Angi Schmidt CNP documented in this encounter* Marlene Lunsford LSW - 07/01/2020 3:11 PM EST SW received referral from PCP Reason for Referral: Resources for detox program Resources Recommended: To be determined upon conversation with patient. Action/Result: SW received referral and reviewed chart. SW placed call to patient. SW left message providing contact information and requested call back. SW to await response and will re-attempt outreach in one week. MIGUEL Diaz LSW [facility] [employer] Tender Care Management [facility] [phone] documented in this encounter* Angi Schmidt CNP - 06/05/2019 11:39 AM EST Subjective Patient ID: Miladys Ernandez is a 48 y.o. female. Patient is here today for a routine follow up. She has some questions after being seen by dr. Carreon, she wants to know why she continues to have loose stools after she was prescribed Azithromycin 500mg x 5 days. She states the loose stools have improved slightly, she is not longer have incontinence issues but states her stools are still very loose. Patient has been seen by Dr. Carreon twice in thepast two weeks, once was yesterday. She also wants to know why he is doing a drug screen test aftershe has been clean 5+ years. Explained that with her weight loss and her history they are just ruling things out and to find out why she had a lower immune system. Spent time reassuring patient and answering questions. The following were reviewed and updated as appropriate for today's visit: allergies, current medications, past family history, past medical history, past social history, past surgical history and problem list. Patient's Medications New Prescriptions No medications on file Previous Medications BUPRENORPHINE HCL (SUBUTEX) [address] 8 mg under the tongue 2 (two) times a day . FAMOTIDINE (PEPCID) 40 MG TABLET Take 1 (one) tablet (40 mg total) by mouth daily . FLU VAC QV 2019,18YR UP,RC,PF, (FLUBLOK QUAD) SYRINGE Sign this order in conjunction with the immunization order to satisfy [place] Board of Pharmacy Positive ID requirements for immunization orders. . GABAPENTIN (NEURONTIN) 600 MG TABLET Take 600 mg by mouth 4 (four) times a day. L. ACIDOPHILUS/BIFID. ANIMALIS (CHEWABLE PROBIOTIC ORAL) Take by mouth daily . PANTOPRAZOLE (PROTONIX) 40 MG TABLET Take 1 (one) tablet (40 mg total) by mouth daily . POLYCARBOPHIL (FIBERCON) 625 MG TABLET Take 625 mg by mouth daily . VENLAFAXINE (EFFEXOR-XR) 150 MG 24 HR CAPSULE Take 1 (one) capsule (150 mg total) by mouth daily . Modified Medications No medications on file Discontinued Medications No medications on file Review of Systems Review of Systems Constitutional: Positive for appetite change, fatigue and unexpected weight change. Negative for activity change. HENT: Negative for hearing loss. Eyes: Negative for visual disturbance. Respiratory: Negative for cough, chest tightness, shortness of breath and wheezing. Cardiovascular: Negative for chest pain and palpitations. Gastrointestinal: Positive for abdominal pain, diarrhea, nausea and vomiting (occasional). Negativefor blood in stool, constipation and rectal pain. Musculoskeletal: Positive for back pain. Negative for gait problem. Skin: Positive for pallor. Psychiatric/Behavioral: Positive for decreased concentration, dysphoric mood and sleep disturbance.Negative for agitation, self-injury and suicidal ideas. The patient is not nervous/anxious. Vitals: 06/05/19 1121 06/05/19 1157 BP: (!) 151/89 (!) 140/84 BP Location: Left arm Left arm Patient Position: Sitting Sitting BP Cuff Size: Adult Adult Pulse: 70 Resp: 18 Temp: 98.1 F (36.7 C) TempSrc: Oral SpO2: 97% Weight: 55.3 kg (122 lb) Height: 5' 8 Body mass index is 18.55 kg/m . Physical Exam Physical Exam Constitutional: She is oriented to person, place, and time. She appears well- developed. She appearscachectic. Very pleasant, thin chronically ill appearing female HENT: Right Ear: External ear normal. Left Ear: External ear normal. Nose: Nose normal. Mouth/Throat: Oropharynx is clear and moist and mucous membranes are normal. Eyes: Conjunctivae, EOM and lids are normal. Neck: Normal range of motion. Cardiovascular: Normal rate, regular rhythm and normal heart sounds. No murmur heard. Pulmonary/Chest: Effort normal and breath sounds normal. Musculoskeletal: Comments: Normal gait Neurological: She is alert and oriented to person, place, and time. GCS eye subscore is 4. GCS verbal subscore is 5. GCS motor subscore is 6. Skin: Skin is warm and dry. Psychiatric: She has a normal mood and affect. Her speech is normal and behavior is normal. No data recorded Assessment/Plan Problem List Items Addressed This Visit Other Diarrhea Continue to follow with Dr. Carreon. If you are still not getting any better we will look into sending you to gastroenterology to see Dr. Keyes. Preventative Goals Goals better food choices You need to cut out all the coffee and high acidic foods. Coping and Emotions Coping and Emotions: Manage stress Adapt to lifestyle changes Get support from family / friends For any new medications prescribed today, patient was educated about indications for the medication, how to take the medication and potential side effects of the medications. Angi Schmidt CNP documented in this encounter Reason for Referral Status Reason Specialty Diagnoses / Procedures Referred By Contact Referred To Contact Authorized General Surgery Diagnoses Gastroesophageal reflux disease, esophagitis presence not specified Weight loss Acute gastritis, presence of bleeding unspecified, unspecified gastritis type nAgi Schmidt CNP [address] [place] [id number] Olivier Nassar MD [address] [place] [id number] Status Reason Specialty Diagnoses / Procedures Referred By Contact Referred To Contact Pending Review Radiology Diagnoses Cigarette nicotine dependence with nicotine-induced disorder Weight loss Chronic cough Procedures CT Chest Low Dose Lung Diagnostic - Only [facility] Angi Schmidt CNP [address] [place] [address] Status Reason Specialty Diagnoses / Procedures Referred By Contact Referred To Contact Authorized Gastroenterology Diagnoses Diarrhea, unspecified type Weight loss Angi Schmidt, JAY [address] [place] [address] Abhay Keyes MD [address] [place] [address] Status Reason Specialty Diagnoses / Procedures Referred By Contact Referred To Contact Authorized Gastroenterology Diagnoses Duodenitis Weight loss Diarrhea, unspecified type Angi Schmidt CNP [address] [place] [address] Jan Rachel MD [address] [place] [address] Status Reason Specialty Diagnoses / Procedures Referred By Contact Referred To Contact Authorized Orthopedic Surgery Diagnoses 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 Numbness and tingling of both lower extremities Angi Schmidt CNP [address] [place] [address] Zachary Chin MD [address] [place] [address] Status Reason Specialty Diagnoses / Procedures Referred By Contact Referred To Contact Closed Specialty Services Required/Patien t's Best Interest Care Management Diagnoses 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) Weight loss Angi Schmidt CNP [address] [place] [address] [facility] [address] Discharge Instructions * Discharge [facility] First Page* Camelia Tracy MD - 05/01/2019 12:49 PM EDT Normal appearing colonoscopy Repeat recommended in 10 years EGD with evidence of reflux, continue pepcid daily My office will call you with the pathology results Please follow up with your primary care doctor. * Additional Instructions* Stephanie Simon RN - 05/01/2019 Hemorrhoids: Care Instructions Your Care Instructions Hemorrhoids are enlarged veins that develop in the anal canal. Bleeding during bowel movements, itching, swelling, and rectal pain are the most common symptoms. They can be uncomfortable at times, but hemorrhoids rarely are a serious problem. You can treat most hemorrhoids with simple changes to your diet and bowel habits. These changes include eating more fiber and not straining to pass stools. Most hemorrhoids do not need surgery or other treatment unless they are very large and painful or bleed a lot. Follow-up care is a murray part of your treatment and safety. Be sure to make and go to all appointments, and call your doctor if you are having problems. It's also a good idea to know your test resultsand keep a list of the medicines you take. How can you care for yourself at home? Sit in a few inches of warm water (sitz bath) 3 times a day and after bowel movements. The warm water helps with pain and itching. Put ice on your anal area several times a day for 10 minutes at a time. Put a thin cloth between the ice and your skin. Follow this by placing a warm, wet towel on the area for another 10 to 20 minutes. Take pain medicines exactly as directed. ? If the doctor gave you a prescription medicine for pain, take it as prescribed. ? If you are not taking a prescription pain medicine, ask your doctor if you can take an orms-xio-uycapke medicine. Keep the anal area clean, but be gentle. Use water and a fragrance-free soap, such as Ivory, or usebaby wipes or medicated pads, such as Tucks. Wear cotton underwear and loose clothing to decrease moisture in the anal area. Eat more fiber. Include foods such as whole-grain breads and cereals, raw vegetables, raw and driedfruits, and beans. Drink plenty of fluids, enough so that your urine is light yellow or clear like water. If you have kidney, heart, or liver disease and have to limit fluids, talk with your doctor before you increase the amount of fluids you drink. Use a stool softener that contains bran or psyllium. You can save money by buying bran or psyllium (available in bulk at most [employer] stores) and sprinkling it on foods or stirring it into fruit juice. Or you can use a product such as Metamucil or Hydrocil. Practice healthy bowel habits. ? Go to the bathroom as soon as you have the urge. ? Avoid straining to pass stools. Relax and give yourself time to let things happen naturally. ? Do not hold your breath while passing stools. ? Do not read while sitting on the toilet. Get off the toilet as soon as you have finished. Take your medicines exactly as prescribed. Call your doctor if you think you are having a problem with your medicine. When should you call for help? Call 911 anytime you think you may need emergency care. For example, call if: You pass maroon or very bloody stools. Call your doctor now or seek immediate medical care if: You have increased pain. You have increased bleeding. Watch closely for changes in your health, and be sure to contact your doctor if: Your symptoms have not improved after 3 or 4 days. Where can you learn more? Log into your personal health record on [email or web address]://WealthToucht.Nearpod and enter F228 in the Education box to learn more about Hemorrhoids: Care Instructions. Current as of: May 09, 2018 Content Version: 12.1 7594-2307 [employer]. Care instructions adapted under license by your healthcare professional. If you have questions about a medical condition or this instruction, always ask your healthcare professional. [employer] disclaims any warranty or liability for your use of this information. documented in this encounter Additional Source Comments Assessment & Plan Note - Buzz Montes MD - 10/11/2017 1:24 PM EDTAssessment & Plan Note - Buzz Montes MD - 10/11/2017 1:23 PM EDT Miscellaneous Notes (unrecog nized section and content) Associated Problem(s): Weight loss Your complaining of weight loss today. Your weight is exactly what it was 10 months ago. Suggest that you keep track of the amount of calories that you are eating most likely if you get in at least [id number] arvind a day you will gain weight we will check a thyroid, liver function, sed rate, and CBC to make sure nothing unusual might be going on. Associated Problem(s): Diarrhea Loose stools can cause weight loss. Common is because of chronic diarrhea is an inability to have a good diet. Anything that irritates the lining of the stomach will cause loose stools. Typically anything less than 6 stools a day is not excessive. You have a history of both constipation as well as loose stools in the past suggest that you get back on the FiberCon on a regular basis. The fiber K FiberCon will make your stools more solid. Will check her stools for the presence of infection and will check blood work as well. Associated Problem(s): Gastroesophageal reflux disease You have a history of gastroesophageal reflux disease as well as gastritis with bleeding. Suggest that you continue on the Protonix as you were placed on back in 03/10/2017 reduction in carbonated beverages as well as coffee and smoking and attention to diet is all important.in this encounter Associated Problem(s): Gastroesophageal reflux disease Patient continues on the pantoprazole 40 mg once a day in a.m. Associated Problem(s): Diarrhea NO evidence of any infectious cause for weight loss. No issues with the liver, pancreas or kidneys. Suggest that we stop the Miralax completely and continue the fiber pill. Try to eat either yogurt or low fat cottage cheese every day for the next 2-3 weeks.in this encounter Associated Problem(s): Encounter for physical examination related to employment Everything on exam today looked great, no issues that would be concerning for working at [employer]. Will fill out your paperwork and fax it in as soon as we get all of your labs. in this encounter Associated Problem(s): Depression with anxiety Your depression is not well controlled at this time. We will increase your Effexor to 150 mg a day to see if this helps. Associated Problem(s): Diarrhea With your family history of colon cancer, your weight loss, and change in stool consistency I think it is really important to have a colonoscopy and an EGD to rule out bigger issues. Associated Problem(s): Gastroesophageal reflux disease To help manage your GERD symptoms it is important to maintain a healthy weight, even losing 5# can make a huge difference with acid reflux. Avoid laying down after meals. Avoid eating late at night. Elevate the head of your bed when sleeping. Avoid wearing tight fitting clothes. Avoid eating foods that can irritate your stomach such as; alcohol, fatty/greasy foods, chocolate, caffeine, mint, or spicy foods. documented in this encounter Associated Problem(s): Diarrhea I want you to quit taking Pepto every single day and start using imodium as needed for loose stools. You can also take metamucil daily to help firm up stools. documented in this encounter Associated Problem(s): 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) Will be sending message to Dr. Beasley. Associated Problem(s): Diarrhea Keep your apt with gastroenterology next Monday, I would like to see what his opinion is on your chronic loose stools and EPEC infection. Associated Problem(s): Gingivitis, acute We need to get the gingivitis under better control. You can not be taking more Gabapentin than prescribed, this is likely one of the causes of the diarrhea and your loss of control of your legs. This is a controlled substance and could void your agreement with DR. Beasley, this is very serious and I suggest you stop this practice immediately. documented in this encounter Associated Problem(s): Depression with anxiety Most of your symptoms have improved with coming off of your Effexor and other medications. We will see how you feel as the next few weeks go on. Let me know if symptoms return or you start to feel worse. documented in this encounter Associated Problem(s): 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) Right now is not a good time to try to come completely off of Suboxone. For right now I would like you to work on taking your medications as prescribed. You need to learn to quit using the Suboxone and Gabapentin as a crutch for day to day stressors. You need to use these medications appropriately. Once you learn to address your problems appropriately you will be more successful on weaning off of the Suboxone. Right now worry about taking your medications right, keeping your job, and finding a new apartment. If at any point you feel like you are falling off the wagon please call and let me know. Use me as a resource! documented in this encounter Associated Problem(s): 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) Continue to follow closely with your drug safety data management specialist. Let me or him know immediatly if you need help or feel like you are going to relapse. Associated Problem(s): Weight loss Weight is stable. documented in this encounter Associated Problem(s): Weight loss You need to let Dr. Beasley know that you are not taking your medications appropriately and you are going through withdrawal every single month. You may want to look into going into a rehab facility to get off of the Subutex and off all opioids. You can not afford to continue to lose weight, you need to make your health a priority. documented in this encounter Associated Problem(s): Diarrhea Continue to follow with Dr. Carreon. If you are still not getting any better we will look into sending you to gastroenterology to see Dr. Keyes. documented in this encounter INFORMATION SOURCE (unrecogn ized section and content) DATE CREATED AUTHOR AUTHOR'S ORGANIZ ATION 12/21/2017 [facility] DATE CREATED AUTHOR AUTHOR'S ORGANIZ ATION 12/29/2017 [facility] DATE CREATED AUTHOR AUTHOR'S ORGANIZ ATION 06/30/2020 [facility] DATE CREATED AUTHOR AUTHOR'S ORGANIZ ATION 12/27/2022 [facility] DATE CREATED AUTHOR AUTHOR'S ORGANIZ ATION 06/04/2023 [facility] Reason for Visit (unrecogniz ed section and content) Reason Comments Medication Refill Reason Comments Consult egd and colonoscopy Status Reason Specialty Diagnoses / Procedures Referred By Contact Referred To Contact Closed General Surgery Diagnoses Weight loss Gastroesophageal reflux disease, esophagitis presence not specified Diarrhea, unspecified type Acute gastritis, presence of bleeding unspecified, unspecified gastritis type Angi Schmidt CNP [address] [place] [address] Camelia Tracy MD [address] [place] [address] Reason Comments Follow-up review medications, upset stomach Status Reason Specialty Diagnoses / Procedures Re ferred By Contact Referred To Contact Diagnoses Weight loss Gastroesophageal reflux disease, esophagitis presence not specified Diarrhea, unspecified type Weight loss [R63.4] Gastroesophageal reflux disease, esophagitis presence not specified [K21.9] Diarrhea, unspecified type [R19.7] Procedures CA COLONOSCOPY FLX DX W/COLLJ SPEC WHEN PFRMD CA ESOPHAGOGASTRODUODENOSCOPY TRANSORAL DIAGNOSTIC Camelia Tracy MD [address] [place] [address] Reason Comments Follow-up Pt reports still hav ing diarrhea using pepto tablets Reason Comments Consult diarrhea and weight loss states has improved since starting loperamide Status Reason Specialty Diagnoses / Procedures Referred By Contact Referred To Contact Closed Gastroenterology Diagnoses Diarrhea, unspecified type Weight loss Angi Schmidt, BUTADIENE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 [address] [id number] Abhay Keyes MD [address] [place] [address] Reason Comments Diarrhea A FEW WEEKS Dental Pain OFF/ON, GETTING BED, REPORTS IT'S HER GINGAVITIS LEG SPASMS X1 WEEK-LEGS JOLT , FELT LIKE I WAS PARALYZED Reason Comments Rash FOLLOW UP Reason Comments Chronic Care Management Reason Comments Follow-up FOLLOW UP AFTER DEAT H OF MOTHER Reason Comments Follow-up 6 weeks for Depressi on, weight loss, opiod dependence LEG TINGLING - BILAT Reason Comments Pain Status Reason Specialty Diagnoses / Procedures Re ferred By Contact Referred To Contact Closed Orthopedic Surgery Diagnoses 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 Numbness and tingling of both lower extremities Angi Schmidt, BUTADIENE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 [address] [place] [address] Zachary Chin MD [address] [place] [address] Reason Onset Date Comments Chronic Care Management 04/13/2020 Reason Onset Date Comments Community Resource Linkage 07/02/2020 Retur lizzette call re: referral Reason Comments Follow-up low back pain, weigh t Reason Onset Date Comments Community Resource Linkage 07/01/2020 Reason Comments Follow-up review medications a nd recent results Reason Comments Addiction problem Reason Comments Drug Problem Camelia Tracy MD - 05/01/2019 11:40 AM Camelia Ortiz MD - 04/10/2019 11:42 AM EDT H&P Notes (unrecognized sect ion and content) INTERVAL HISTORY AND PHYSICAL Patient Name: Miladys Ernandez Admit Date: [id number] MR #: [id number] : 1970 The H&P has been reviewed and the patient has been examined. I concur with the findings of the H&P. There are no significant changes. It is appropriate to proceed with the planned procedure. Camelia Tracy MD 05/01/2019 11:40 AM HISTORY & PHYSICAL EXAMINATION Patient Name: Miladys Ernandez MR #: [id number] : 1970 Physicians: Angi Schmidt CNP (Family); Angi Schmidt C* (Referring) Chief Complaint/Reason for Visit: Abdominal pain, weight loss change in bowel habit, family history of colon cancer History of Present Illness: Miladys Ernandez is a 48 y.o. y/o female past medical history of EtOH abuse, arthritis and Suboxone use presenting for complaint of abdominal pain, weight loss, changes in her bowel habits and a family history of colon cancer. States that for several months she is been struggling with constipation with intermittent diarrhea this is associated with significant abdominal pain and nausea but denies any vomiting. Has not noted any blood in the stool and no black or tar like stools. As for her family history reports that her father was diagnosed with colon cancer in his 50s and from complications of it. Denies any other history of polyp Risk factor/ Bowel Symptoms Diarrhea yes. Constipation yes. Blood in stool no. Mucus in stool no. Change in caliber of stool yes. Diagnosis of anemia no. Family history of colon cancer yes. Family history of other digestive cancer. no. History: I have reviewed the PMHx, PSHx, SHx, FHx in EMR with the patient during this encounter face to face and patient agrees with the documentation Past Medical History: Diagnosis Date Alcohol dependence (HCC) Arthritis 2007 Dr. Mari Foot abscess 10/19/2018 Info Gained From: [facility] ED report --- Jeremi Sanford MD Sciatica 2007 Dr. Mari Past Surgical History: Procedure Laterality Date COLONOSCOPY [facility] [place] D&C (DIL & CURETTAGE, SHARP W/ SUCTION) 1990 ESOPHAGOGASTRODUODENOSCOPY HYSTERECTOMY 11/10/2009 [facility], vaginal with right salpingo-oophorectomy......Dr. Canales TUBAL LIGATION Family History Problem Relation Age of Onset Arthritis Mother COPD Mother Depression Mother Heart disease Mother Kidney disease Mother Social History Socioeconomic History Marital status: Spouse name: Not on file Number of children: Not on file Years of education: Not on file Highest education level: Not on file Occupational History Not on file Social Needs Financial resource strain: Not on file Food insecurity: Worry: Never true Inability: Never true Transportation needs: Medical: Not on file Non-medical: Not on file Tobacco Use Smoking status: Current Every Day Smoker Packs/day: 2.00 Years: 35.00 Pack years: 70.00 Smokeless tobacco: Never Used Tobacco comment: Patient needs to quit smoking Substance and Sexual Activity Alcohol use: No Drug use: Yes Types: Subutex Sexual activity: Not Currently Partners: Male Lifestyle Physical activity: Days per week: Not on file Minutes per session: Not on file Stress: Not on file Relationships Social connections: Talks on phone: Not on file Gets together: Three times a week Attends muslim service: Not on file Active member of club or organization: Not on file Attends meetings of clubs or organizations: Not on file Relationship status: Not on file Other Topics Concern Not on file Social History Narrative Not on file Allergy Information: Patient has no known allergies. Home Medications: Outpatient Medications as of 04/10/2019 Medication Sig buprenorphine HCl (SUBUTEX) [address] 8 mg under the tongue 2 (two) times a day . famotidine (PEPCID) 40 MG tablet Take 1 (one) tablet (40 mg total) by mouth daily . gabapentin (NEURONTIN) 600 MG tablet Take 600 mg by mouth 4 (four) times a day. L. acidophilus/Bifid. animalis (CHEWABLE PROBIOTIC ORAL) Take by mouth daily . pantoprazole (PROTONIX) 40 MG tablet Take 1 (one) tablet (40 mg total) by mouth daily . polycarbophil (FIBERCON) 625 mg tablet Take 625 mg by mouth daily . venlafaxine (EFFEXOR-XR) 150 MG 24 hr capsule Take 1 (one) capsule (150 mg total) by mouth daily . Review of Systems: Review of Systems Constitutional: Positive for appetite change, fatigue and unexpected weight change. Respiratory: Positive for shortness of breath. Gastrointestinal: Positive for abdominal pain, constipation, diarrhea and nausea. Genitourinary: Positive for frequency. Musculoskeletal: Positive for arthralgias. All other systems reviewed and are negative. Physical Examination: Vital Signs: BP 108/73 Pulse 87 Temp 98.3 F (36.8 C) (Oral) Ht 5' 8 Wt 56.9 kg (125 lb 8 oz) SpO2 92% BMI 19.08 kg/m Physical Exam HENT: Head: Normocephalic. Nose: Nose normal. Mouth/Throat: Mouth: Mucous membranes are moist. Eyes: General: No scleral icterus. Pupils: Pupils are equal, round, and reactive to light. Neck: Musculoskeletal: Normal range of motion. Cardiovascular: Rate and Rhythm: Normal rate. Heart sounds: No murmur. Pulmonary: Effort: Pulmonary effort is normal. No respiratory distress. Breath sounds: Normal breath sounds. Abdominal: General: Abdomen is flat. There is no distension. Tenderness: There is no tenderness. Musculoskeletal: Normal range of motion. Skin: General: Skin is warm. Neurological: General: No focal deficit present. Mental Status: She is alert. Cranial Nerves: No cranial nerve deficit. Psychiatric: Mood and Affect: Mood normal. Thought Content: Thought content normal. Laboratory and Additional Data Reviewed: Laboratory 04/10/19 11:54 AM Laboratory Lab Results Component Value Date WBC 6.84 03/05/2019 WBC 5.8 10/11/2017 RBC 4.25 03/05/2019 HGB 12.5 03/05/2019 HGB 12.7 10/11/2017 HCT 38.9 03/05/2019 HCT 39.0 10/11/2017 PLT 280 03/05/2019 PLT 234 10/11/2017 No results found for: AMYLASE No results found for: LIPASE Assessment and Plan: Miladys Ernandez is a 48 y.o. y/o female past medical history of EtOH abuse, arthritis and Suboxone use presenting for complaint of abdominal pain, weight loss, changes in her bowel habits and a family history of colon cancer for colonoscopy and EGD. Patient Active Problem List Diagnosis Acute gastritis Duodenitis Gastroesophageal reflux disease Displacement of lumbar intervertebral disc without myelopathy Depression with anxiety Nicotine dependence Chronic sinusitis Diarrhea Weight loss Plan: Schedule for colonoscopy. Schedule for upper endoscopy. The risks and benefits of my recommendations, as well as other treatment options were discussed with the patient today including but not limited to perforation and bleeding. Prep instruction provided and consent obtained. Questions were answered. Screening and Health maintenance Colonoscopy - Last colonoscopy 2007 documented in this encounter Stephanie Simon RN - 05/01/2019 1:34 PM EDTHerRuby chase RN - 05/01/2019 11:37 AM EDT Nursing Notes (unrecognized section and content) Pt having gas pains Pt very sleepy instructions given pt verbalized understanding Daughter Kamla with pt. documented in this encounter Care Teams (unrecognized sec tion and content) Salon Assistant Relationship Specialty Start Date End Date Miranda Jensen PA-C [id number] [id number] PCP - General 03/29/19 Salon Assistant Relationship Specialty Start Date End Date Miranda Jensen PA-C [address] [phone] PCP - General 03/29/19 FOR RECORDS PERTAINING TO PATIENTS WHO ARE OR HAVE BEEN ENROLLED IN A CHEMICAL DEPENDENCY/SUBSTANCEABUSE PROGRAM, SOME INFORMATION MAY BE OMITTED. This clinical summary was aggregated from multiple sources. Caution should be exercised in using it in the provision of clinical care. This summary normalizes information from multiple sources, and as a consequence, information in this document may materially change the coding, format and clinical context of patient data. In addition, data may be omitted in some cases. CLINICAL DECISIONS SHOULD BE BASED ON THE PRIMARY CLINICAL RECORDS. [employer] provides no warranty or guarantee of the accuracy or completeness of information in this document.
== END | disposition home or self-care (01) ==
LOC: CVS 13:57
PROVIDERS: PCP Internal Medicine; Referring Provider Podiatrist Foot & Ankle Surgery; Visit Provider Podiatrist Foot & Ankle Surgery
DX: I73.9 Peripheral vascular disease, unspecified (principal); M79.605 Pain in left leg
CPT/HCPCS: 93923; 93970

== ENCOUNTER 2023-07-05 14:30 | Outpatient (RCR) | payer BC, SELFPAY ==
--- NOTE | 2023-05-31 17:14 | HP.PTEVAL_ITS ---
Patient's Visit Information Visit Information Visit Information: RENATE REN is a 52 year old F referred to Physical Therapy by Dr. Julisa Johnson MD with a diagnosis of LUMBAR RADICULOPATHY. Date of Evaluation: 05/31/23 Physical Therapist: Marco Antonio Lovett PT, Cert MDT, OCS Visit Plan Frequency: 2x /Week Duration: 4 Weeks Plan: PT INTERVENTIONS DLS ,POSTUREAL EX'S ,LUMBAR ROM ,ACTIVITY MODIFICATION ,AND MODALTIES Subjective Subjective: This 52 y/o female presents to physical therapy with lumbar radiculopathy. Patient has had lumbar pain affecting bilateral legs R> L. Seen DR Shashi BURCH. Patient had x-rays DDD and bloodwork. Patient has gabapentin. Location of pain symmetrical lumbar pain and affecting legs. Aggravating walking ,bending ,lifting , and standing affects job demands lifting. Alleviating rest and heat/ice. C/O paresthesia/tingling feet. Coughing/sneezing - Bowel/bladder -. Patient plans to check neuropathy. Patient has had no prior PT . Patient has had no injection. Patient Patient is able to sleeping. Patient is a recover addict. Patient has had no trauma. Patient pain affects QOL and function. Patient goal to decrease back npain. SOCIAL: single VOCATION: [employer] Pain Bilateral Back: Pain Intensity (Out of 10): 6 Pain Intensity Range: 10 Objective Objective: POSTURE: mild forward posture PALPATION: tender LS NEURO: c/o paresthesia/tingling ,reflexes L3-4,L4-5,L5-S1 2/3 GAIT: reciprocal pattern SYMMTRIES: align MMT: quads/hams 4-/5 ,hip flexion ,hip abduction 3+/5 ,ankle 4/5 LUMBAR ROM: flexion min loss ,extension min loss ,side glides min loss FLEXABILITY: hamstrings min tight Special Tests L/S Slump test left side: Negative L/S Slump test right side: Negative L/S Left Straight Leg Raise: Negative L/S Right Straight Leg Raise: Negative Lumbar Standing: Flexion - Mechanical Response: No effect Lumbar Standing: Flexion - Symptoms During Testing: Increases Lumbar Standing: Flexion - Symptoms After Testing: Worse Lumbar Standing: Extension - Mechanical Response: No effect Lumbar Standing: Extension - Symptoms During Testing: Increases Lumbar Standing: Extension - Symptoms After Testing: No worse Lumbar Standing: Right Side Glides - Mechanical Response: No effect Lumbar Standing: Right Side [place] - Symptoms During Testing: No effect Lumbar Standing: Right Side [place] - Symptoms After Testing: No effect Lumbar Standing: Left Side [place] - Mechanical Response: No effect Lumbar Standing: Left Side [place] - Symptoms During Testing: No effect Lumbar Standing: Left Side [place] - Symptoms After Testing: No effect Lumbar Lying: Flexion - Mechanical Response: No effect Lumbar Lying: Flexion - Symptoms During Testing: No effect Lumbar Lying: Flexion - Symptoms After Testing: No effect Lumbar Lying: Extension - Mechanical Response: No effect Lumbar Lying: Extension - Symptoms During Testing: Increases Lumbar Lying: Extension - Symptoms After Testing: No worse Balance/Special Test Scores Oswestry Low Back Score: 24 Goals Goal 1:: I with HEP for back Goal Time Frame: 4-6 Weeks Goal 2:: Patient to demonstrate 40% improvement with less pain and improved function Goal Time Frame: 4-6 Weeks Goal 3:: Patient to improve posture body mechanics 80% of the time Goal Time Frame: 4-6 Weeks Goal 4:: Patient to improve function of recovery to lift boxes for job demands Goal Time Frame: 4-6 Weeks Goal 5:: Patient to improve back oswestry score by by 5 points to improve QOL Goal Time Frame: 4-6 Weeks Rehabilitation Potential Physical Therapy Diagnosis: This patient has lumbar radiculopathy possible disc along with weakness ,pain with positioning and motion testing worse with bending lifting and walking affects job demands thus benefit from skilled PT Rehabilitation Potential: Good Anticipated Interventions Patient/Client Instruction: Educate patient on: Condition and Plan of Care For the Purpose of:: To decrease pain, To increase ROM, To improve muscle performance and motor function, To increase tolerance to activity/condition/position, To improve ability of physical actions for home/community/work/leisure, To improve health of tissue, To decrease soft tissue restriction, To increase flexibility/ROM and To prevent re-injury Therapeutic Exercise to Include: Strength training, Body mechanics, Postural training, Flexibilty training and Dynamic Lumbar Stabilization For the Purpose of:: To decrease pain, To increase ROM, To improve muscle performance and motor function, To increase tolerance to activity/condition/position, To improve ability of physical actions for home/community/work/leisure, To improve health of tissue, To decrease soft tissue restriction, To increase flexibility/ROM, To reduce risk of recurrence and To prevent re-injury TENS: Yes IF ES: Yes Cryotherapy (ice pack, ice massage): Yes Thermo therapy (hot pack): Yes Ultrasound (thermal/non thermal): Yes For the Purpose of:: To decrease pain, To increase ROM, To improve nutrient delivery to tissue, To increase oxygenation perfusion, To improve health of tissue and To decrease soft tissue restriction Text: Thank you for the opportunity to evaluate your patient. For Medicare and Medicare HMO plans, please review the plan of care and approve it. It will need to be FAXED BACK to us at [phone] for Medicare purposes. For Medicare only, by signing this I certify the plan of care. Please let me know if there are questions or concerns regarding this plan of care. Physician Signature: Date:
--- NOTE | 2023-07-05 15:20 | HP.PTDCSUM ---
Discharge Summary D/C summary: It has been my pleasure to treat RENATE REN referred by Dr. Julisa Johnson MD, with the diagnosis of LUMBAR RADICULOPATHY for a total of 6 visit(s). Discharge Date: 07/05/23 Please see the following information for a summary of their discharge status. Subjective Subjective: Plan to have surgery Jul 13 Pain Bilateral Back: Pain Intensity (Out of 10): 2 Objective Objective/Function: POSTURE: mild forward posture PALPATION: tender LS NEURO: c/o paresthesia/tingling ,reflexes L3-4,L4-5,L5-S1 2/3 GAIT: reciprocal pattern SYMMTRIES: align MMT: quads/hams 44/5 ,hip flexion ,hip abduction 4-/5 ,ankle 4/5 LUMBAR ROM: flexion min loss ,extension min loss ,side glides min loss FLEXABILITY: hamstrings min tight Goals Goal 1:: I with HEP for back Goal Progress: Goal Met Goal 2:: Patient to demonstrate 40% improvement with less pain and improved function Goal Progress: Goal Met Goal 3:: Patient to improve posture body mechanics 80% of the time Goal Progress: Progressing Goal 4:: Patient to improve function of recovery to lift boxes for job demands Goal Progress: Progressing Goal 5:: Patient to improve back oswestry score by by 5 points to improve QOL Goal Progress: Progressing Plan Plan: D/C D/C Information Discharge Comments: SCHEDULED d/c sentence: If there are questions or concerns regarding this patient's physical therapy, please feel free to call me at [phone]. Thank you for the referral of this patient. Sincerely, Marco Antonio Lovett, PT, Cert MDT, OCS Balance/Gait/Functional tests Balance/Special Test Scores Oswestry Low Back Score: 23
== END 2023-07-05 19:00 | disposition home or self-care (01) ==
LOC: PT 14:30
PROVIDERS: PCP Internal Medicine; Visit Provider Internal Medicine
DX: M54.16 Radiculopathy, lumbar region (principal)
CPT/HCPCS: 97014; 97110; 97162; 97530; G0283

== ENCOUNTER → 2023-07-10 | Outpatient (CLI) | payer BC, SELFPAY ==
[2023-07-10 17:42] LABS: Cholesterol 140 mg/dL (200); High Density Lipoprotein 57 mg/dL; Triglycerides 130 mg/dL; Very Low Density Lipoprotein 26 mg/dL (5-40)
== END | disposition home or self-care (01) ==
LOC: BIMLAB 14:50
PROVIDERS: PCP Internal Medicine; Referring Provider Internal Medicine; Visit Provider Internal Medicine
DX: Z00.00 Encounter for general adult medical examination without abnormal findings (principal)
CPT/HCPCS: 36415; 80061

== ENCOUNTER 2023-07-13 08:31 | Day surgery (SDC) | payer BC, SELFPAY ==
[2023-07-12 07:44] VITALS: BMI 18.1
--- OUTSIDE RECORDS SUMMARY | 2023-07-13 08:55 | XMS RPT_ITS | CCD ---
Author Name Unknown Address [address] [place] [address] Organization [facility] Care Team Providers Care Mutual Fund Manager Name Role Phone Buzz Montes Unavailable Tiffanie Beasley Unavailable Unavail able Buzz Montes Unavailable Unavailable Buzz Montes Unavailable Unavailable BUZZ MONTES Unavailable Unavailable DONTAE RANKIN Unavailable Unavailable DONTAE RANKIN Unavailable Unavailable BUZZ MONTES Unavailable Unavailable Buzz Montes Primary Care Provider [phone] Tiffanie Beasley Unavailable Unavail able Tiffanie Beasley Unavailable Tiffanie Beasley Unavailable [phone] Angi Schmidt Primary Care Provider [phone] Tiffanie Beasley Unavailable [phone] ANGI SCHMIDT Attending Unavailable SPRING, ANGI MTaylor [...] Propensity to adverse reactions to drug 9 [facility] (14 sources) Opioids - Morphine Analogues; Translations: [OPIOIDS - MORPHINE ANALOGUES] Propensity to adverse reactions to drug 9 [facility] (14 sources) venlafaxine; Translations: [VENLAFAXINE] Drug Allergy 0 [facility] (4 sources) NSAIDs Propensity to adverse reactions to drug 9 [facility] Medications Current Medications Medication Drug Class(es) Dates [...] 20.83 kg/m2 Tiffanie Beasley MD Work Phone: [facility] 11-16-2021 10:51-0400 Body temperature 96.6 [degF] Tiffanie Beasley MD Work Phone: [facility] 11-16-2021 10:51-0400 Body weight 62.14 kg Tiffanie Beasley MD Work Phone: [facility] 11-16-2021 10:51-0400 Diastolic blood pressure 79 mm[Hg] Tiffanie Beasley MD Work Phone: [facility] 11-16-2021 10:51-0400 Heart rate 69 /min Tiffanie Beasley MD Work Phone: [facility] 11-16-2021 10:51-0400 SaO2% (BldA) [Mass fraction] 96 % Tiffanie Beasley MD Work Phone: [facility] 11-16-2021 10:51-0400 Systolic blood pressure 121 mm[Hg] Tiffanie Beasley MD Work Phone: [facility] 10-18-2021 10:44-0400 Body mass index (BMI) [Ratio] 20.83 kg/m2 Tiffanie Beasley MD Work Phone: [facility] 10-18-2021 10:44-0400 Body temperature 97.81 [degF] Tiffanie Beasley MD Work Phone: [facility] 10-18-2021 10:44-0400 Body weight 62.14 kg Tiffanie Beasley MD Work Phone: [facility] 10-18-2021 10:44-0400 Diastolic blood pressure 73 mm[Hg] Tiffanie Beasley MD Work Phone: [facility] 10-18-2021 10:44-0400 Heart rate 79 /min Tiffanie Beasley MD Work Phone: [facility] 10-18-2021 10:44-0400 Systolic blood pressure 152 mm[Hg] Tiffanie Beasley MD Work Phone: [facility] 09-17-2021 14:29-0400 Body mass index (BMI) [Ratio] 20.98 kg/m2 Tiffanie Beasley MD Work Phone: [facility] 09-17-2021 14:29-0400 Body temperature 96.8 [degF] Tiffanie Beasley MD Work Phone: [facility] 09-17-2021 14:29-0400 Body weight 62.6 kg Tiffanie Beasley MD Work Phone: [facility] 09-17-2021 14:29-0400 Diastolic blood pressure 79 mm[Hg] Tiffanie Beasley MD Work Phone: [facility] 09-17-2021 14:29-0400 Heart rate 56 /min Tiffanie Beasley MD Work Phone: [facility] 09-17-2021 14:29-0400 Systolic blood pressure 127 mm[Hg] Tiffanie Beasley MD Work Phone: [facility] 02-23-2021 14:48-0400 Body mass index (BMI) [Ratio] 19.92 kg/m2 Tiffanie Beasley MD Work Phone: [facility] 02-23-2021 14:48-0400 Body temperature 96.01 [degF] Tiffanie Beasley MD Work Phone: [facility] 02-23-2021 14:48-0400 Body weight 59.42 kg Tiffanie Beasley MD Work Phone: [facility] 02-23-2021 14:48-0400 Diastolic blood pressure 65 mm[Hg] Tiffanie Beasley MD Work Phone: [facility] 02-23-2021 14:48-0400 Heart rate 74 /min Tiffanie Beasley MD Work Phone: [facility] 02-23-2021 14:48-0400 Systolic blood pressure 100 mm[Hg] Tiffanie Beasley MD Work Phone: [facility] 06-29-2020 14:09-0500 BMI (Body Mass Index) 18.72 kg/m2 [facility] 06-29-2020 14:09-0500 Body Temperature 98.29 [degF] [facility] 06-29-2020 14:09-0500 Body weight 55.84 kg [facility] 06-29-2020 14:09-0500 BP Diastolic 79 mm[Hg] [facility] 06-29-2020 14:09-0500 BP Systolic 117 mm[Hg] [facility] 06-29-2020 14:09-0500 Height 172.7 cm [facility] 06-29-2020 14:09-0500 Pulse (Heart Rate) 72 /min [facility] 06-29-2020 14:09-0500 Pulse Oximetry 98 % [facility] 06-29-2020 14:09-0500 Respiratory Rate 16 /min [facility] 04-13-2020 13:29-0400 BMI (Body Mass Index) 19.77 kg/m2 [facility] 04-13-2020 13:29-0400 Body weight 58.97 kg [facility] 04-13-2020 13:29-0400 BP Diastolic 91 mm[Hg] [facility] 04-13-2020 13:29-0400 BP Systolic 134 mm[Hg] [facility] 04-13-2020 13:29-0400 Height 172.7 cm [facility] 04-13-2020 13:29-0400 Pulse (Heart Rate) 93 /min [facility] 03-30-2020 13:54-0400 BMI (Body Mass Index) 19.77 kg/m2 [facility] 03-30-2020 13:54-0400 Body Temperature 98.2 [degF] [facility] 03-30-2020 13:54-0400 Body weight 58.97 kg [facility] 03-30-2020 13:54-0400 BP Diastolic 68 mm[Hg] [facility] 03-30-2020 13:54-0400 BP Systolic 103 mm[Hg] [facility] 03-30-2020 13:54-0400 Height 172.7 cm [facility] 03-30-2020 13:54-0400 Pulse (Heart Rate) 75 /min [facility] 03-30-2020 13:54-0400 Pulse Oximetry 92 % [facility] 03-30-2020 13:54-0400 Respiratory Rate 18 /min [facility] 02-11-2020 13:24-0400 BMI (Body Mass Index) 19.46 kg/m2 [facility] 02-11-2020 13:24-0400 Body Temperature 99.1 [degF] [facility] 02-11-2020 13:24-0400 Body weight 58.06 kg [facility] 02-11-2020 13:24-0400 BP Diastolic 65 mm[Hg] [facility] 02-11-2020 13:24-0400 BP Systolic 146 mm[Hg] [facility] 02-11-2020 13:24-0400 Height 172.7 cm [facility] 02-11-2020 13:24-0400 Pulse (Heart Rate) 87 /min [facility] 02-11-2020 13:24-0400 Pulse Oximetry 97 % [facility] 02-11-2020 13:24-0400 Respiratory Rate 18 /min [facility] 11-15-2019 08:09-0400 BMI (Body Mass Index) 19.87 kg/m2 [facility] 11-15-2019 08:09-0400 Body Temperature 98.1 [degF] [facility] 11-15-2019 08:09-0400 Body weight 59.28 kg [facility] 11-15-2019 08:09-0400 BP Diastolic 85 mm[Hg] [facility] 11-15-2019 08:09-0400 BP Systolic 123 mm[Hg] [facility] 11-15-2019 08:09-0400 Height 172.7 cm [facility] 11-15-2019 08:09-0400 Pulse (Heart Rate) 95 /min [facility] 11-15-2019 08:09-0400 Pulse Oximetry 98 % [facility] 11-15-2019 08:09-0400 Respiratory Rate 18 /min [facility] 11-07-2019 08:59-0400 BMI (Body Mass Index) 20.15 kg/m2 [facility] 11-07-2019 08:59-0400 Body Temperature 97.5 [degF] [facility] 11-07-2019 08:59-0400 Body weight 60.1 kg [facility] 11-07-2019 08:59-0400 BP Diastolic 70 mm[Hg] [facility] 11-07-2019 08:59-0400 BP Systolic 112 mm[Hg] [facility] 11-07-2019 08:59-0400 Height 172.7 cm [facility] 11-07-2019 08:59-0400 Pulse (Heart Rate) 79 /min [facility] 11-07-2019 08:59-0400 Pulse Oximetry 94 % [facility] 11-07-2019 08:59-0400 Respiratory Rate 16 /min [facility] 08-20-2019 08:49-0500 BMI (Body Mass Index) 19.48 kg/m2 [facility] 08-20-2019 08:49-0500 Body Temperature 97.81 [degF] [facility] 08-20-2019 08:49-0500 Body weight 58.11 kg [facility] 08-20-2019 08:49-0500 BP Diastolic 77 mm[Hg] [facility] 08-20-2019 08:49-0500 BP Systolic 132 mm[Hg] [facility] 08-20-2019 08:49-0500 Height 172.7 cm [facility] 08-20-2019 08:49-0500 Pulse (Heart Rate) 70 /[facility] 08-20-2019 08:49-0500 Pulse Oximetry 95 % [facility] 08-20-2019 08:49-0500 Respiratory Rate 18 /min [facility] 07-23-2019 16:22-0500 BMI (Body Mass Index) 18.85 kg/m2 [facility] 07-23-2019 16:22-0500 Body Temperature 98.01 [degF] [facility] 07-23-2019 16:22-0500 Body weight 56.25 kg [facility] 07-23-2019 16:22-0500 BP Diastolic 70 mm[Hg] [facility] 07-23-2019 16:22-0500 BP Systolic 104 mm[Hg] [facility] 07-23-2019 16:22-0500 Height 172.7 cm [facility] 07-23-2019 16:22-0500 Pulse (Heart Rate) 70 /min [facility] 07-23-2019 16:22-0500 Pulse Oximetry 98 % [facility] 07-23-2019 16:22-0500 Respiratory Rate 18 /min [facility] 06-05-2019 11:57-0500 BP Diastolic 84 mm[Hg] [facility] 06-05-2019 11:57-0500 BP Systolic 140 mm[Hg] [facility] 06-05-2019 11:21-0500 BMI (Body Mass Index) 18.55 kg/m2 [facility] 06-05-2019 11:21-0500 Body Temperature 98.1 [degF] [facility] 06-05-2019 11:21-0500 Body weight 55.34 kg [facility] 06-05-2019 11:21-0500 Height 172.7 cm [facility] 06-05-2019 11:21-0500 Pulse (Heart Rate) 70 /min [facility] 06-05-2019 11:21-0500 Pulse Oximetry 97 % [facility] 06-05-2019 11:21-0500 Respiratory Rate 18 /min [facility] 05-01-2019 13:02-0400 BP Diastolic 86 mm[Hg] [facility] 05-01-2019 13:02-0400 BP Systolic 149 mm[Hg] [facility] 05-01-2019 13:02-0400 Pulse (Heart Rate) 71 /min [facility] 05-01-2019 13:02-0400 Pulse Oximetry 99 % [facility] 05-01-2019 13:02-0400 Respiratory Rate 13 /min [facility] 05-01-2019 12:42-0400 Body Temperature 97.2 [degF] [facility] 05-01-2019 11:38-0400 BMI (Body Mass Index) 18.7 kg/m2 [facility] 05-01-2019 11:38-0400 Body weight 55.79 kg [facility] 05-01-2019 11:38-0400 Height 172.7 cm [facility] 04-25-2019 15:43-0400 BMI (Body Mass Index) 18.4 kg/m2 [facility] 04-25-2019 15:43-0400 Body Temperature 98.01 [degF] [facility] 04-25-2019 15:43-0400 Body weight 54.88 kg [facility] 04-25-2019 15:43-0400 BP Diastolic 84 mm[Hg] [facility] 04-25-2019 15:43-0400 BP Systolic 123 mm[Hg] [facility] 04-25-2019 15:43-0400 Height 172.7 cm [facility] 04-25-2019 15:43-0400 Pulse (Heart Rate) 70 /min [facility] 04-25-2019 15:43-0400 Pulse Oximetry 98 % [facility] 04-25-2019 15:43-0400 Respiratory Rate 18 /min [facility] 04-10-2019 11:36-0400 BMI (Body Mass Index) 19.08 kg/m2 [facility] 04-10-2019 11:36-0400 Body Temperature 98.29 [degF] [facility] 04-10-2019 11:36-0400 Body weight 56.93 kg [facility] 04-10-2019 11:36-0400 BP Diastolic 73 mm[Hg] [facility] 04-10-2019 11:36-0400 BP Systolic 108 mm[Hg] [facility] 04-10-2019 11:36-0400 [facility] 04-10-2019 11:36-0400 Pulse (Heart Rate) 87 /min [facility] 04-10-2019 11:36-0400 Pulse Oximetry 92 % [facility] 03-05-2019 08:23-0400 BMI (Body Mass Index) 18.88 kg/m2 [facility] 03-05-2019 08:23-0400 Body Temperature 97.9 [degF] [facility] 03-05-2019 08:23-0400 Body weight 56.34 kg [facility] 03-05-2019 08:23-0400 BP Diastolic 63 mm[Hg] [facility] 03-05-2019 08:23-0400 BP Systolic 101 mm[Hg] [facility] 03-05-2019 08:23-0400 Height 172.7 cm [facility] 03-05-2019 08:23-0400 Pulse (Heart Rate) 65 /min [facility] 03-05-2019 08:23-0400 Pulse Oximetry 96 % [facility] 03-05-2019 08:23-0400 Respiratory Rate 16 /min [facility] 08-20-2018 17:56-0500 BMI (Body Mass Index) 19.95 kg/m2 [facility] 08-20-2018 17:56-0500 Body Temperature 97.59 [degF] [facility] 08-20-2018 17:56-0500 BP Diastolic 70 mm[Hg] [facility] 08-20-2018 17:56-0500 BP Systolic 112 mm[Hg] [facility] 08-20-2018 17:56-0500 Height 172.7 cm [facility] 08-20-2018 17:56-0500 Pulse (Heart Rate) 71 /min [facility] 08-20-2018 17:56-0500 Pulse Oximetry 98 % [facility] 08-20-2018 17:56-0500 Respiratory Rate 16 /min [facility] 08-20-2018 17:56-0500 Weight 59.51 kg [facility] 11-06-2017 14:22-0400 BMI (Body Mass Index) 18.7 kg/m2 [facility] 11-06-2017 14:22-0400 Body Temperature 98.2 [degF] [facility] 11-06-2017 14:22-0400 BP Diastolic 72 mm[Hg] [facility] 11-06-2017 14:22-0400 BP Systolic 124 mm[Hg] [facility] 11-06-2017 14:22-0400 Height 172.7 cm [facility] 11-06-2017 14:22-0400 Pulse (Heart Rate) 73 /min [facility] 11-06-2017 14:22-0400 Pulse Oximetry 98 % [facility] 11-06-2017 14:22-0400 Respiratory Rate 18 /min [facility] 11-06-2017 14:22-0400 Weight 55.79 kg [facility] 10-11-2017 11:21-0400 BMI (Body Mass Index) 19.78 kg/m2 [facility] 10-11-2017 11:21-0400 Body Temperature 97.5 [degF] [facility] 10-11-2017 11:21-0400 BP Diastolic 65 mm[Hg] [facility] 10-11-2017 11:21-0400 BP Systolic 105 mm[Hg] [facility] 10-11-2017 11:21-0400 Height 172.7 cm [facility] 10-11-2017 11:21-0400 Pulse (Heart Rate) 69 /min [facility] 10-11-2017 11:21-0400 Pulse Oximetry 98 % [facility] 10-11-2017 11:21-0400 Respiratory Rate 16 /min [facility] 10-11-2017 11:21-0400 Weight 59.01 kg [facility] 03-10-2017 11:16-0400 BMI (Body Mass Index) 20.68 kg/m2 [facility] Work Phone: 03-10-2017 11:16-0400 Body Temperature 98.1 [degF] [facility] Work Phone: 03-10-2017 11:16-0400 BP Diastolic 83 mm[Hg] [facility] Work Phone: 03-10-2017 11:16-0400 BP Systolic 122 mm[Hg] [facility] Work Phone: 03-10-2017 11:16-0400 Height 172.7 cm [facility] Work Phone: 03-10-2017 11:16-0400 Pulse (Heart Rate) 76 /min [facility] Work Phone: 03-10-2017 11:16-0400 Pulse Oximetry 98 % [facility] Work Phone: 03-10-2017 11:16-0400 Respiratory Rate 16 /min [facility] Work Phone: 03-10-2017 11:16-0400 Weight 61.69 kg Buzz Montes [facility] Work Phone: Encounters Encounter Date Encounter Type Care Provider Facility Start: 06-01-2023 End: 06-02-2023 Emergency department patient visit [facility] Start: 06-01-2023 End: 06-01-2023 Emergency department patient visit [facility] Start: 12-14-2022 End: 12-18-2022 ambulatory PHYSICIAN [facility] Start: 11-16-2021 End: 11-16-2021 Office outpatient visit 15 minutes Tiffanie Beasley MD Work Phone: [facility] [place] Procedures Date Procedure Procedure Detail Performing Clinician Start: 05-01-2019 End: 05-01-2019 Colonoscopy [employer] Social Service Director Work Phone: Start: 05-01-2019 Cul bact aerobic add l meths definitive ea isol Donnamarie Social Service Director Work Phone: Start: 05-01-2019 Endoscopy of esophagus Donnamarie Social Service Director Work Phone: Start: 04-25-2019 Adult depression scr eening assessment [facility]i [facility] Start: 03-05-2019 Adult depression scr eening assessment Donnamarie Social Service Director Start: 10-11-2017 Microscopic observat ion [Identifier] in Cervix by Cyto stain [facility] Plan of Treatment Date Care Activity Detail Author Start: 05-01-2029 Screening for malignant neoplasm of colon [facility] Start: 10-12-[address] [facility] Start: 03-03-2022 Influenza vaccination INFLUENZA VACCINE (Season Ended) [facility] Start: 12-16-2021 End: 12-16-2021 Patient encounter procedure 12/16/2021 Office Visit Internal Medicine Tiffanie Beasley MD [address] [address] [facility] Start: 11-16-2021 End: 11-16-2021 Patient encounter procedure 11/16/2021 Office Visit Internal Medicine Tiffanie Beasley MD [address] [address] [facility] Start: 10-18-2021 End: 10-18-2021 Patient encounter procedure 10/18/2021 Office Visit Internal Medicine Tiffanie Beasley MD [address] [place] [id number] [facility] Start: 03-25-2021 End: 03-25-2021 Patient encounter procedure 03/25/2021 Office Visit Internal Medicine Tiffanie Beasley MD [address] [place] [id number] [facility] Start: 03-03-2021 Influenza vaccination INFLUENZA VACCINE (#1) [facility] Start: 01-27-2021 Depression Remission Assessment (PHQ9) Depression Remission Assessment (PHQ9) [facility] Start: 01-12-2021 COVID-19 VACCINE (2 - Moderna 2-dose series) COVID-19 VACCINE (2 - Moderna 2-dose series) [facility] Start: 10-11-2020 Screening for malignant neoplasm of cervix PAP SMEAR [facility] Start: 09-29-2020 End: 09-29-[address] [facility] Start: 2020 Administration of herpes zoster vaccine Zoster Vaccines (1 of 2) [facility] Start: 2020 Screening for malignant neoplasm of colon [facility] Start: 2020 Screening for malignant neoplasm of lung LUNG CANCER SCREENING [facility] Start: 2020 Zoster vaccine hzv live for subcutaneous use ZOSTER (SHINGLES) VACCINE (1 of 2) [facility] Start: 07-04-2020 Patient Risk Level Override Patient Risk Level Override [facility] Start: 06-29-2020 End: 06-29-2020 Office Visit 06/29/2020 Office Visit Primary Care Angi Schmidt [employer] [address] [id number] [phone] [facility] Start: 04-25-2020 Depression screening using PHQ-9 (Patient Health Questionnaire 9) score DEPRESSION SCREENING (PHQ9) [facility] Start: 03-30-2020 End: 03-30-2020 Office Visit 03/30/2020 Office Visit Primary Care Angi Schmidt [employer]AR[employer] SUPERVISOR [address] [id number] [phone] [facility] Start: 03-26-[address] [facility] Immunizations Immunization Date Immunization Notes Care Provider Fa cility 04-25-2019 Seasonal, quadrivalent, recombinant, injectable influenza vaccine, preservative free [facility] 04-25-2019 flu vac qv 2019,18yr up,rc,PF, (FLUBLOK QUAD) syringe [facility] 04-25-2019 influenza virus vaccine, unspecified formulation Tiffanie Beasley MD Work Phone: [facility] Payers Date Payer Category Payer Unknown [id number] 2021 Unknown JAZMIN WU O PPO POS [id number] 2021-Present [address] [place] [address] [id number] 2017 Unknown xxxxxxxxxxxx [id number] 2017 Unknown [id number] 2017 Unknown MMO MED MUTUAL S UPERMED PPO [id number] 2017-Present [id number] 2016 Medicaid [id number] 2016 Unknown [id number] 1970 Unknown [id number] [id number] 1970 Unknown [id number] 2.16.840.1.318339.3.579.2. 1970 Unknown [id number] [id number] 1970 Unknown [id number] 2.16.840.1.906535.3.579.2. 1970 Unknown [id number] 2.16.840.1.939411.3.579.2. 1970 Unknown [id number] [id number] 1970 Unknown [id number] [id number] 1970 Unknown [id number] 2.16.840.1.654846.3.579.2. 1970 Unknown [id number] [id number] 1970 Unknown [id number] 2.16.840.1.560398.3.579.2. 1970 Unknown [id number] [id number] 1970 Unknown [id number] [id number]. Medicaid xxxxxxxxxxx [id number] Social History Date Type Detail Facility Start: 11-15-2017 End: 03-29-2019 Tobacco smoking status NHIS Current every day smoker [facility] Start: 11-15-2017 End: 03-29-2019 Cigarettes smoked current (pack per day) - Reported [facility] Work Phone: Start: 1970 Sex Assigned At Not on file [facility] Work Phone: Start: 11-15-2017 Tobacco Comment Patient needs to quit smoking [facility] Start: 03-05-2019 End: 07-07-2020 Alcohol intake Current non-drinker of alcohol (finding) [facility] Start: 03-05-2019 History SDOH Social Connections Get Together [facility] Start: 03-05-2019 End: 02-23-2021 History SDOH Food Worry 1 [facility] Exposure to SARS-CoV -2 (event) Not sure [facility] Exposure to SARS-CoV -2 (event) Unable to assess [facility] Start: 03-29-2019 End: 02-26-2020 Tobacco use and exposure Never used [facility] History of tobacco use Cigarette Smoker A [facility] Start: 09-17-2021 End: 11-16-2021 Alcohol intake Ex-drinker (finding) [facility] Start: 02-23-2021 History SDOH Alcohol Comment last drink 7 years ago [facility] Goals Date Patient Goal Desired Activity /State History of Present illness Narrative 11-16-2021 Renée Chow LPN - 11/16/2021 11:00 AM Emerita Beasley [...] Beasley MD 11/16/2021 documented in this encounter [facility] History of Present illness Narrative 10-18-2021 Christen [...] Beasley MD 10/18/2021 documented in this encounter [facility] History of Present illness Narrative 09-17-2021 Christen [...] Beasley MD 09/17/2021 documented in this encounter [facility] History of Present illness Narrative 02-23-2021 Tiffanie [...] Social Gatherings with Friends and Family: Attends Religion Services: Active Member of Clubs or Organizations: [...] prescription for naloxone. documented in this encounter [facility] Evaluation note Note Date & Type Note Facility documented in this encounter [facility] Evaluation note Note Date & Type Note Facility documented in this encounter [facility] Evaluation note Note Date & Type Note Facility documented in this encounter [facility] Instructions * Patient Instructions - [...] likely if you get in at least [id number] arvind a day you will gain weight [...] take for pain. Your doctor may recommend cudz-lds-dmfgxzz medicine. For mild or occasional indigestion, antacids such as Tums, Gaviscon, Maalox, or Mylanta may help. Your doctor also may recommend gnjm-fgn-knlmuzk acid reducers, such as famotidine (Pepcid AC), [...] Log into your personal health record on [email or web address] and enter T074 in the Education box to learn more about Hiatal Hernia: Care Instructions. Current as of: February 09, 2016 Content Version: 11.2 8141-3633 [employer]big. Care instructions adapted under license by your healthcare professional. If you have questions about a medical condition or this instruction, always ask your healthcare professional. [employer]zbig disclaims any warranty or liability for your [...] Log into your personal health record on [email or web address] and enter R113 in the Education box to learn more about Learning About Chilo Fundoplication Surgery. Current as of: February 09, 2016 Content Version: 11.2 8318-9475 itzbig. Care instructions adapted under license by your healthcare professional. If you have questions about a medical condition or this instruction, always ask your healthcare professional. [employer]zbig disclaims any warranty or liability for your use of this information. in this encounter* Patient Instructions* Angi Schmidt CNP - 08/20/2018 6:54 PM EST Problem List Items Addressed This Visit Other Encounter for physical examination related to employment Everything on exam today looked great, no issues that would be concerning for working at [email or web address] fill out your paperwork and fax it [...] Log into your personal health record on [email or web address] and enter O319 in the Education box to learn more about Learning About Benefits From Quitting Smoking. Current as of: March 28, 2018 Content Version: 11.9 7303-7352 itzbig. Care instructions adapted under license by your healthcare professional. If you have questions about a medical condition or this instruction, always ask your healthcare professional. itzbig disclaims any warranty or liability for your [...] look into their status. Customer Service/Billing Questions: [phone] MyChart Assistance: [phone] or [phone] Financial Assistance: [phone] or [phone] documented in this encounter* Patient Instructions* Angi [...] look into their status. Customer Service/Billing Questions: [phone] [facility] Assistance: [phone] or [phone] Financial Assistance: [phone] or [phone] documented in this encounter* Patient Instructions* Angi [...] look into their status. Customer Service/Billing Questions: [phone] MyChart Assistance: [phone] or [phone] Financial Assistance: [phone] or [phone] As of July 08, 2019 my schedule [...] look into their status. Customer Service/Billing Questions: [phone] MyChart Assistance: [phone] or [phone] Financial Assistance: [phone] or [phone] As of July 08, 2019 my schedule [...] look into their status. Customer Service/Billing Questions: [phone] MyChart Assistance: [phone] or [phone] Financial Assistance: [phone] or [phone] As of July 08, 2019 my schedule [...] look into their status. Customer Service/Billing Questions: [phone] MyChart Assistance: [phone] or [phone] Financial Assistance: [phone] or [phone] As of July 08, 2019 my schedule [...] look into their status. Customer Service/Billing Questions: [phone] [employer] Assistance: [phone] or [phone] Financial Assistance: [phone] or [phone] As of July 08, 2019 my schedule [...] (HCC) Continue to follow closely with your legal recovery specialist. Let me or him know immediatly [...] look into their status. Customer Service/Billing Questions: [phone] MyChart Assistance: [phone] or [phone] Financial Assistance: [phone] or [phone] As of July 08, 2019 my schedule [...] look into their status. Customer Service/Billing Questions: [phone] MyChart Assistance: [phone] or [phone] Financial Assistance: [phone] or [phone] documented in this encounter* Patient Instructions* Angi [...] look into their status. Customer Service/Billing Questions: [phone] MyChart Assistance: [phone] or [phone] Financial Assistance: [phone] or [phone] As of July 08, 2019 my schedule [...] FoundDocuments on File Type Date Recorded Patient Poolroom/Poolhall Manager Expl anation Advance Directives and Living Will Documents on File Type Date Recorded Patient Poolroom/Poolhall Manager Expl anation Advance Directives and Living Will Documents on File Type Date Recorded Patient Poolroom/Poolhall Manager Expl anation Advance Directives and Livin g Will 05/01/2019 10:53 AM Documents on File Type Date Recorded Patient Poolroom/Poolhall Manager Expl anation Advance Directives and Livin g Will 05/01/2019 10:53 AM Documents on File Type Date Recorded Patient Poolroom/Poolhall Manager Expl anation Advance Directives and Livin g Will 04/13/2020 12:00 AM Documents on File Type Date Recorded Patient Poolroom/Poolhall Manager Expl anation Advance Directives and Livin g Will 04/13/2020 12:00 AM History of Present Illness * Angi Schmidt, TARIFF SUPERVISOR - 08/22/2018 8:53 PM EST Subjective Patient ID: Miladys Ernandez is a 48 y.o. female. Patient is here for a physical for her place of employment, [employer]. Denies any issues or complaints at today's [...] SHARP W/ SUCTION) 1990 ESOPHAGOGASTRODUODENOSCOPY HYSTERECTOMY 2008 [facility]-Has one ovary, unsure which she has TUBAL LIGATION Assessment/Plan: Problem List Items Addressed This Visit Other Encounter for physical examination related to employment - Primary Everything on exam today looked great, no issues that would be concerning for working at [employer].Will fill out your paperwork and fax it [...] EXAMINATION Patient Name: Miladys Ernandez MR #: [id number] : 1970 Physicians: Angi Schmidt, JAY (Family); [...] Mari Foot abscess 10/19/2018 Info Gained From: [facility] ED report --- Jeremi Sanford MD Sciatica 2007 Dr. Mari Past Surgical History: Procedure Laterality Date COLONOSCOPY [facility] [place] D&C (DIL & CURETTAGE, SHARP W/ SUCTION) 1990 ESOPHAGOGASTRODUODENOSCOPY HYSTERECTOMY 11/10/2009 [facility], [facility], vaginal with right salpingo-oophorectomy......Dr. Canales TUBAL LIGATION [...] Gets together: Three times a week Attends spiritism service: Not on file Active member of [...] conjunction with the immunization order to satisfy [place] Board [employer] Pharmacy Positive ID requirements for [...] for EPEC. She is interested in seeing stock manager to find some answers. Colonoscopy/EGD done by [...] conjunction with the immunization order to satisfy [place] [employer] Pharmacy Positive ID requirements for [...] treatment for [address] Mari Back pain Chronic pain disorder Foot abscess 10/19/2018 Info Gained From: [facility] ED report --- Jeremi Sanford MD Sciatica 2007 Dr. Mari Past Surgical History: Procedure Laterality Date COLONOSCOPY [facility] [place] COLONOSCOPY N/A 05/01/2019 Procedure: COLONOSCOPY with biopsy; Surgeon: Camelia Tracy MD; [place] [facility]; Service: General Surgery D&C (DIL & CURETTAGE, SHARP W/ SUCTION) 1990 EGD N/A 05/01/2019 Procedure: ESOPHAGOGASTRODUODENOSCOPY with biopsy; Surgeon: Camelia Tracy MD; [place] [facility]; Service: General Surgery ESOPHAGOGASTRODUODENOSCOPY HYSTERECTOMY 11/10/2009 [facility], [facility], vaginal with right salpingo-oophorectomy......Dr. Canales TUBAL LIGATION [...] conjunction with the immunization order to satisfy [place] Board [employer] Pharmacy Positive ID requirements for [...] Gets together: Three times a week Attends spiritism service: Not on file Active member of [...] A total of 45 minutes were spent [id number] for this visit with more than 50% of the time spent in counseling and management. Sincerely; Abhay Keyes MD CC: Angi Schmidt CNP IMPORTANT: Please note that some portions of this note may have been created using [employer] voice recognition software. Some sound-like and a [...] pain is theworst. She is using a Crystalsol brand of mouth wash and it is not helping with the pain. She states due to the pain she is using more of her Gabapentin than prescribed. She is currently [id number] mg 4 times a day. She states [...] her home, encouraged Miladys to talked to [facility] social research assistant to help with these decisions. Encouraged her [...] is also going to have issues because hermLivemocha check paid for the rent on the house she is living in. This patient is in need of finding new housing options [facility]. The following were reviewed and updated [...] (HCC) Continue to follow closely with your legal recovery specialist. Let me or him know immediatly [...] and potential side effects of the medications. [facility] Depression Screening 03/05/2019 04/25/2019 03/30/2020 Little interest [...] PM EDT [facility] [address] ([address]) [facility] [address] [facility] [phone] Miladys Ernandez is a 49 y.o. female [...] - LM documented in this encounter* Marlene Lunsford LSW - 07/02/2020 10:43 AM EST SW [...] assist patient as needed. MIGUEL Diaz, VENUS Geospatial Technologist Care Management [facility] [phone] documented in this encounter* Angi Schmidt CNP [...] refills again, she has not notified her legal recovery specialist that she is not taking her [...] outreach in one week. MIGUEL Diaz LSW Geospatial Technologist Care Management [facility] [phone] documented in this encounter* Angi Schmidt CNP [...] conjunction with the immunization order to satisfy [place] Board of Pharmacy Positive ID requirements for [...] unspecified, unspecified gastritis type Angi Schmidt CNP [address] [place] [address] Olivier Nassar MD [address] [place] [address] Status Reason Specialty Diagnoses / Procedures Referred By Contact Referred To Contact Pending Review Radiology Diagnoses Cigarette nicotine dependence with nicotine-induced disorder Weight loss Chronic cough Procedures CT Chest Low Dose Lung Diagnostic - Only LCSP Angi Schmidt CNP [address] [place] [address] Status Reason Specialty Diagnoses / Procedures Referred By Contact Referred To Contact Authorized Gastroenterology Diagnoses Diarrhea, unspecified type Weight loss Angi Schmidt, JAY [address] [place] [address] Abhay Keyes MD [address] [place] [address] Status Reason Specialty Diagnoses / Procedures Referred By Contact Referred To Contact Authorized Gastroenterology Diagnoses Duodenitis Weight loss Diarrhea, unspecified type Angi Schmidt CNP [address] [place] [address] Jan Rachel MD [address] [place] [address] Status Reason Specialty Diagnoses / Procedures Referred By Contact Referred To Contact Authorized Orthopedic Surgery Diagnoses 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 Numbness and tingling of both lower extremities Angi Schmidt CNP [address] [place] [address] Zachary Chin MD [address] [place] [address] Status Reason Specialty Diagnoses / Procedures Referred By Contact Referred To Contact Closed Specialty Services Required/Patien t's Best Interest Care Management Diagnoses 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) Weight loss Angi Schmidt CNP [address] [place] [address] [facility] Coordinat [address] Discharge Instructions * Discharge [facility] First Page* Camelia Tracy MD - 05/01/2019 [...] your doctor if you can take an [id number] medicine. Keep the anal area clean, but [...] or psyllium (available in bulk at most Nutmeg stores) and sprinkling it on foods or [...] Log into your personal health record on [email or web address] and enter F228 in the Education box to learn more about Hemorrhoids: Care Instructions. Current as of: May 09, 2018 Content Version: 12.1 4874-7267 itzbig. Care instructions adapted under license by your healthcare professional. If you have questions about a medical condition or this instruction, always ask your healthcare professional. itzbig disclaims any warranty or liability for your [...] likely if you get in at least [phone] arvind a day you will gain weight [...] that would be concerning for working at [employer]. Will fill out your paperwork and fax [...] (HCC) Continue to follow closely with your legal recovery specialist. Let me or him know immediatly [...] DATE CREATED AUTHOR AUTHOR'S ORGANIZ ATION 12/21/2017 [facility] DATE CREATED AUTHOR AUTHOR'S ORGANIZ ATION 12/29/2017 [facility] DATE CREATED AUTHOR AUTHOR'S ORGANIZ ATION 06/30/[address] [facility] DATE CREATED AUTHOR AUTHOR'S ORGANIZ ATION 12/27/2022 [facility] DATE CREATED AUTHOR AUTHOR'S ORGANIZ ATION 06/04/2023 [facility] Reason for Visit (unrecogniz ed section and content) Reason Comments Medication Refill Reason Comments Consult egd and colonoscopy Status Reason Specialty Diagnoses / Procedures Referred By Contact Referred To Contact Closed General Surgery Diagnoses Weight loss Gastroesophageal reflux disease, esophagitis presence not specified Diarrhea, unspecified type Acute gastritis, presence of bleeding unspecified, unspecified gastritis type Angi Schmidt CNP [address] [place] [address] Camelia Tracy MD [address] [place] [address] Reason Comments Follow-up review medications, upset stomach Status Reason Specialty Diagnoses / Procedures Re ferred By Contact Referred To Contact Diagnoses Weight loss Gastroesophageal reflux disease, esophagitis presence not specified Diarrhea, unspecified type Weight loss [R63.4] Gastroesophageal reflux disease, esophagitis presence not specified [K21.9] Diarrhea, unspecified type [R19.7] Procedures [place] COLONOSCOPY FLX DX W/COLLJ SPEC WHEN PFRMD [place] ESOPHAGOGASTRODUODENOSCOPY TRANSORAL DIAGNOSTIC Camelia Tracy MD [address] [place] [address] Reason Comments Follow-up Pt reports still hav ing diarrhea using pepto tablets Reason Comments Consult diarrhea and weight loss states has improved since starting loperamide Status Reason Specialty Diagnoses / Procedures Referred By Contact Referred To Contact Closed Gastroenterology Diagnoses Diarrhea, unspecified type Weight loss Angi Schmidt, TARIFF SUPERVISOR [address] [id number] Abhay Keyes MD [address] [place] [address] Reason Comments Diarrhea A FEW WEEKS Dental [...] tingling of both lower extremities Angi Schmidt, TARIFF SUPERVISOR [address] [place] [address] Zachary Chin MD [address] [place] [address] Reason Onset Date Comments Chronic Care Management [...] Miladys Ernandez Admit Date: [id number] MR #: [id number] : 1970 The H&P has been reviewed and the patient has been examined. I concur with the findings of the H&P. There are no significant changes. It is appropriate to proceed with the planned procedure. Camelia Tracy MD 05/01/2019 11:40 AM HISTORY & PHYSICAL EXAMINATION Patient Name: iMladys Ernandez MR #: [id number] : 1970 Physicians: Angi Schmidt CNP (Family); [...] Mari Foot abscess 10/19/2018 Info Gained From: [facility] ED report --- Jeremi Sanford MD Sciatica 2007 Dr. Mari Past Surgical History: Procedure Laterality Date COLONOSCOPY [facility] [place] D&C (DIL & CURETTAGE, SHARP W/ SUCTION) 1990 ESOPHAGOGASTRODUODENOSCOPY HYSTERECTOMY 11/10/2009 [facility], [facility], vaginal with right salpingo-oophorectomy......Dr. Canales TUBAL LIGATION [...] Gets together: Three times a week Attends spiritism service: Not on file Active member of [...] Care Teams (unrecognized sec tion and content) Mutual Fund Manager Relationship Specialty Start Date End Date Miranda Jesnen PA-C [address] [phone] PCP - General 03/29/19 Mutual Fund Manager Relationship Specialty Start Date End Date Miranda Jensen PA-C [address] [phone] PCP - General 03/29/19 FOR RECORDS PERTAINING [...] BE BASED ON THE PRIMARY CLINICAL RECORDS. [employer] provides no warranty or guarantee of the accuracy or completeness of information in this document.
--- NOTE | 2023-07-13 12:46 | PCM.OPRPT ---
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 She had a CT angiography which revealed high-grade multiple lesions in the distal aorta and the bilateral common iliac origins. [place] that this was the culprit for her atheroembolic event and she also continue to have some ongoing rest pain so she is taken now for angiogram with plans to treat with covered stent the area of atherosclerotic burden. Description of procedure: Upon obtaining form consent and verification correct patient procedure site patient was taken to the [place] Cutter Operator she was positioned prepped and draped in a sterile fashion. After sedation ministered %. Artery was anesthetized with percent lidocaine the vessel accessed with micropuncture needle wire under ultrasound guidance. This was then exchanged for a micropuncture sheath through which hand-injection iliofemoral angiogram was performed which revealed satisfactory placement no extravasation dissection. Through the micropuncture sheath Bentson wire was advanced and the micropuncture sheath exchanged for an 8 Israeli sheath. Next skin overlying the left common femoral artery was anesthetized 1% lidocaine the vessel accessed under ultrasound guidance with a micropuncture needle wire. This then exchanged out for micropuncture sheath through the injection iliofemoral angiogram was performed revealing satisfactory placement no extravasation dissection. Through the micropuncture sheath a glide advantage wire was advanced the micropuncture sheath exchanged out for a 7 Israeli sheath. Patient was then heparinized and allowed to circulate for 3 minutes. Using the right femoral access sheath Bentson wire we traversed the iliac and aortic lesions advancing into the infrarenal aorta. A Kumpe catheter was then advanced over the wire and the wire withdrawn after which injection aortogram was performed which revealed satisfactory placement of the true lumen. The Bentson wire was then exchanged out for an 018 wire and intravascular sound probe advanced over the wire and recorded pullback of the aorta, right common iliac artery, right external artery was performed. This confirmed that there was soft plaque with no thrombus and provided accurate sizing of the reference vessels. A [place] Viabahn VBX 11 x 29 was then brought to field prep for weapons electrical engineering officer instructions. Was then advanced over the right femoral access wire and positioned as inferior as possible to place in close proximity to the aortic bifurcation. This was then inflated to nominal and then deflated withdrawn. Injection angiography via the right femoral access sheath was performed confirming satisfactory placement with adequate coverage of the aortic lesion with no extravasation or dissection. Given the size of the reference vessel with a Bard [place] Gold 14 x 4 angioplasty balloon was then brought to field prep for weapons electrical engineering officer instructions. Was then advanced over the wire and the stent postdilated to 14 mm. The balloon was then withdrawn and next the Kumpe catheter was advanced over the left femoral glide advantage wire and the wire and catheter used to navigate across the iliac lesion and traversing the recently placed stent. After advancing the catheter proximal to the stent and the wires were drawn and exchanged for an 018 wire. The catheter was then withdrawn and intravascular shunt probe was advanced over the wire and recorded pullback of the aorta, left common iliac artery, left external artery was performed. This confirmed presence within true lumen and confirmed reference vessel size. Next a [place] Viabahn VBX 8 x 59 was brought in field prepped for manufactures instructions advanced via the right femoral access sheath. A second [place] Viabahn VBX 7 x 59 was then brought on the field prep for weapons electrical engineering officer instructions and advanced via the left femoral access sheath. This was then advanced with satisfactory overlap into the aortic stent and properly aligned. These were then deployed with inflation to nominal and then deflated withdrawn. Completion angiography via the access sheath confirmed satisfactory stent positioning with no residual stenosis no extravasation dissection. There is brisk contrast transit through each of the iliac stents. The Gigalocalson wires and readvanced via the right femoral 8 Israeli sheath and the sheath withdrawn after which a Pro-glide suture mediated closure device was then deployed with satisfactory stasis and a palpable pulse proximal to and distal to the closure. Next the long 7 Israeli sheath the left femoral access was exchanged for a short 7 Israeli sheath and a minx closure device deployed with satisfactory stasis and a palpable pulse proximal to and distal to the closure. After 2 minutes of manual pressure satisfactory stasis was noted the patient was then awakened her sedation, taken the recovery room, with expected discharge to home. Grafts/Implants Used: [place] viabahn VBX 11x29 aorta,7x59 left common iliac,8x59 right common iliac
[2023-07-14 03:42] LABS: ACT Activated Clotting Time 244 sec (74-137)
[2023-07-14 03:42] LABS: ACT Activated Clotting Time 233 sec (74-137)
== END 2023-07-13 15:45 | disposition home or self-care (01) ==
LOC: CLSP 08:33
PROVIDERS: PCP Internal Medicine; Referring Provider Surgery Trauma Surgery; Visit Provider Surgery Trauma Surgery
DX: I70.223 Atherosclerosis of native arteries of extremities with rest pain, bilateral legs (principal); I75.022 Atheroembolism of left lower extremity; I70.0 Atherosclerosis of aorta; F17.210 Nicotine dependence, cigarettes, uncomplicated; Z79.899 Other long term (current) drug therapy; Z79.02 Long term (current) use of antithrombotics/antiplatelets; Z79.01 Long term (current) use of anticoagulants; Z79.82 Long term (current) use of aspirin; M79.89 Other specified soft tissue disorders
CPT/HCPCS: 36200; 37221; 37236; 37252; 37253; 75625; 76937; 85347; 99152; 99153; C1760; C1769; C1874; C1894; J7040; Q9967; C1725; C1887; J2405

== ENCOUNTER → 2023-08-16 | Outpatient (CLI) | payer BC, SELFPAY ==
--- NOTE | 2023-08-16 09:05 | ART_ITS ---
Reason For Study: S/P AO and BLE WILBER Stents Procedure A bilateral lower extremity continuous wave Doppler with analog waveform analysis and ankle brachial indexes. Left Segmental Pressures Left brachial= 125mmHg. Left posterior tibial artery = 136mmHg. Left dorsalis pedis artery = 144mmHg. Left digit = 75 mmHg. The left posterior tibial artery waveforms are triphasic. The left dorsalis pedis waveforms are triphasic. Right Segmental Pressures Right brachial= 115mmHg. Right posterior tibial artery = 140mmHg. Right dorsalis pedis artery = 139mmHg. Right digit = 107 mmHg. The right posterior tibial artery waveforms are triphasic. The right dorsalis pedis waveforms are triphasic. Indices The right ankle brachial index by the posterior tibial artery is 1.12. The right ankle brachial index by the dorsalis pedis is 1.11. The right digital-brachial index is 0.86. The left ankle brachial index by the posterior tibial artery is 1.09. The left ankle brachial index by the dorsalis pedis is 1.15. The left digital-brachial index is 0.60. VL/Ankle Brachial Index Interpretation Summary Right AJAY 1.12, normal. TBI and Doppler/PVR waveforms of the right ankle normal at rest. Left AJAY 1.15, normal. Doppler/PVR waveforms of the left ankle normal at rest. TBI diminished, pedal/digit disease vs spasm Ordering Physician: Bharati Prado Referring Physician: Julisa Johnson Performed By: Wayne Denny, RVT
--- NOTE | 2023-08-16 09:05 | AAVD_ITS ---
Reason For Study: S/P AO and BLE WILBER Stents Aorta Measurements Aorta Doppler Measurements Proximal aorta measures1.50 x 1.46cm. in cross- Peak systolic flow velocities within the proximal sectional axis. aorta measure 73.0 cm/sec. Proximal aorta measures1.45cm. in longitudinal Peak systolic flow velocities within the mid aorta axis. measure 63.6 cm/sec. Mid aorta measures1.50 x 1.50cm. in cross- sectional axis. Mid aorta measures1.52cm. in longitudinal axis. Stent noted at Dist AO to Bilateral WILBER Prox Stent = 1.12cm x 1.18cm Prox Stent Long = 1.09cm Prox Stent = 70.5cm/s PSV Rt WILBER Stent at Bifurcation = 0.70cm x 0.72cm Rt WILBER Stent at Bifurcation Long = 0.67cm Rt WILBER Stent at Prox = 139.5 cm/s PSV Rt WILBER Stent at Distal = 100.7 cm/s PSV Lt WILBER Stent at Bifurcation = 0.61cm x 0.64cm Lt WILBER Stent at Bifurcation Long = 0.59cm Lt WILBER Stent at Prox = 118.7 cm/s PSV Lt WILBER Stent at Distal = 131.7 cm/s PSV. Left Iliac Artery Left iliac artery measures 0.75 x 0.78 cm. in the cross-sectional axis. Left iliac artery measures 0.72 cm. in the longitudinal axis. Peak systolic velocity in the left iliac artery measures 111.0 cm/sec. Right Iliac Artery Right iliac artery measures 0.83 x 0.85 cm. in the cross-sectional axis. Right iliac artery measures 0.74 cm. in the longitudinal axis. Peak systolic velocity in the right iliac artery measures 126.6 cm/sec. VL/Abd Aortic/IVC Duplex scan Interpretation Summary Patent aortic and bilateral common iliac artery stents with normal velocities a nd no evidence of stenosis. Ordering Physician: Bharati Prado Referring Physician: Julisa Johnson Performed By: Wayne Denny RVT
--- OUTSIDE RECORDS SUMMARY | 2023-08-16 09:31 | XMS RPT_ITS | CCD ---
Author Name Unknown Address [address] [place] [address] Organization [facility] Care Team Providers Care Sas Statistical Programmer Name Role Phone Buzz Montes Unavailable Tiffanie Beasley Unavailable Unavail able Buzz Montes Unavailable Unavailable Buzz Montes Unavailable Unavailable BUZZ MONTES Unavailable Unavailable DONTAE RANKIN Unavailable Unavailable DONTAE RANKIN Unavailable Unavailable BUZZ MONTES Unavailable Unavailable Buzz Montes Primary Care Provider Tiffanie Beasley Unavailable Unavail able Tiffanie Beasley Unavailable Tiffanie Beasley Unavailable Angi Schmidt Primary Care Provider [phone] Tiffanie Beasley Unavailable ANGI SCHMIDT Attending Unavailable [...] Unavailable [place], Angi Trevizo Primary Care Provider [phone] Miranda Jensen PA-C Primary Care Provider U [...] Propensity to adverse reactions to drug 9 [facility] (14 sources) Opioids - Morphine Analogues; Translations: [OPIOIDS - MORPHINE ANALOGUES] Propensity to adverse reactions to drug 9 [facility] (14 sources) venlafaxine; Translations: [VENLAFAXINE] Drug Allergy 0 [facility] (4 sources) NSAIDs Propensity to adverse reactions to drug 9 Medications Current Medications Medication Drug Class(es) Dates [...] 20.83 kg/m2 Tiffanie Beasley MD Work Phone: 11-16-2021 10:51-0400 Body temperature 96.6 [degF] Tiffanie Beasley MD Work Phone: 11-16-2021 10:51-0400 Body weight 62.14 kg Tiffanie Beasley MD Work Phone: 11-16-2021 10:51-0400 Diastolic blood pressure 79 mm[Hg] Tiffanie Beasley MD Work Phone: 11-16-2021 10:51-0400 Heart rate 69 /min Tiffanie Beasley MD Work Phone: 11-16-2021 10:51-0400 SaO2% (BldA) [Mass fraction] 96 % Tiffanie Beasley MD Work Phone: 11-16-2021 10:51-0400 Systolic blood pressure 121 mm[Hg] Tiffanie Beasley MD Work Phone: 10-18-2021 10:44-0400 Body mass index (BMI) [Ratio] 20.83 kg/m2 Tiffanie Beasley MD Work Phone: 10-18-2021 10:44-0400 Body temperature 97.81 [degF] Tiffanie Beasley MD Work Phone: 10-18-2021 10:44-0400 Body weight 62.14 kg Tiffanie Beasley MD Work Phone: 10-18-2021 10:44-0400 Diastolic blood pressure 73 mm[Hg] Tiffaine Beasley MD Work Phone: [facility] 10-18-2021 10:44-0400 Heart rate 79 /min Tiffanie Beasley MD Work Phone: [facility] 10-18-2021 10:44-0400 Systolic blood pressure 152 mm[Hg] Tiffanie Beasley MD Work Phone: [facility] 09-17-2021 14:29-0400 Body mass index (BMI) [Ratio] 20.98 kg/m2 Tiffanie Beasley MD Work Phone: [facility] 09-17-2021 14:29-0400 Body temperature 96.8 [degF] Tiffanie Beasley MD Work Phone: [email or web address] 09-17-2021 14:29-0400 Body weight 62.6 kg Tiffanie Beasley MD Work Phone: [facility] 09-17-2021 14:29-0400 Diastolic blood pressure 79 mm[Hg] Tiffanie Beasley MD Work Phone: [email or web address] [employer] 09-17-2021 14:29-0400 Heart rate 56 /min Tiffanie Beasley MD Work Phone: [email or web address] 09-17-2021 14:29-0400 Systolic blood pressure 127 mm[Hg] Tiffanie Beasley MD Work Phone: [facility] 02-23-2021 14:48-0400 Body mass index (BMI) [Ratio] 19.92 kg/m2 Tiffanie Beasley MD Work Phone: [email or web address] [employer] 02-23-2021 14:48-0400 Body temperature 96.01 [degF] Tiffanie Beasley MD Work Phone: [email or web address] 02-23-2021 14:48-0400 Body weight 59.42 kg Tiffanie Beasley MD Work Phone: [email or web address] 02-23-2021 14:48-0400 Diastolic blood pressure 65 mm[Hg] Tiffanie Beasley MD Work Phone: 02-23-2021 14:48-0400 Heart rate 74 /min Tiffanie Beasley MD Work Phone: 02-23-2021 14:48-0400 Systolic blood pressure 100 mm[Hg] Tiffanie Beasley MD Work Phone: 06-29-2020 14:09-0500 BMI (Body Mass Index) 18.72 kg/m2 [facility] 06-29-2020 14:09-0500 Body Temperature 98.29 [degF] [facility] 06-29-2020 14:09-0500 Body weight 55.84 kg [facility] 06-29-2020 14:09-0500 BP Diastolic 79 mm[Hg] [facility] 06-29-2020 14:09-0500 BP Systolic 117 mm[Hg] [facility] 06-29-2020 14:09-0500 Height 172.7 cm [facility] 06-29-2020 14:09-0500 Pulse (Heart Rate) 72 /min [facility] 06-29-2020 14:09-0500 Pulse Oximetry 98 % [facility] 06-29-2020 14:09-0500 Respiratory Rate 16 /min [facility] 04-13-2020 13:29-0400 BMI (Body Mass Index) 19.77 kg/m2 [facility] 04-13-2020 13:29-0400 Body weight 58.97 kg [facility] 04-13-2020 13:29-0400 BP Diastolic 91 mm[Hg] [facility] 04-13-2020 13:29-0400 BP Systolic 134 mm[Hg] [facility] 04-13-2020 13:29-0400 Height 172.7 cm [facility] 04-13-2020 13:29-0400 Pulse (Heart Rate) 93 /min [facility] 03-30-2020 13:54-0400 BMI (Body Mass Index) 19.77 kg/m2 [facility] 03-30-2020 13:54-0400 Body Temperature 98.2 [degF] [facility] 03-30-2020 13:54-0400 Body weight 58.97 kg [facility] 03-30-2020 13:54-0400 BP Diastolic 68 mm[Hg] [facility] 03-30-2020 13:54-0400 BP Systolic 103 mm[Hg] [facility] 03-30-2020 13:54-0400 Height 172.7 cm [facility] 03-30-2020 13:54-0400 Pulse (Heart Rate) 75 /min [facility] 03-30-2020 13:54-0400 Pulse Oximetry 92 % [facility] 03-30-2020 13:54-0400 Respiratory Rate 18 /min [facility] 02-11-2020 13:24-0400 BMI (Body Mass Index) 19.46 kg/m2 [facility] 02-11-2020 13:24-0400 Body Temperature 99.1 [degF] [facility] 02-11-2020 13:24-0400 Body weight 58.06 kg [facility] 02-11-2020 13:24-0400 BP Diastolic 65 mm[Hg] [facility] 02-11-2020 13:24-0400 BP Systolic 146 mm[Hg] [facility] 02-11-2020 13:24-0400 Height 172.7 cm [facility] 02-11-2020 13:24-0400 Pulse (Heart Rate) 87 /min [facility] 02-11-2020 13:24-0400 Pulse Oximetry 97 % [facility] 02-11-2020 13:24-0400 Respiratory Rate 18 /min [facility] 11-15-2019 08:09-0400 BMI (Body Mass Index) 19.87 kg/m2 [facility] 11-15-2019 08:09-0400 Body Temperature 98.1 [degF] [facility] 11-15-2019 08:09-0400 Body weight 59.28 kg [facility] 11-15-2019 08:09-0400 BP Diastolic 85 mm[Hg] [facility] 11-15-2019 08:09-0400 BP Systolic 123 mm[Hg] [facility] 11-15-2019 08:09-0400 Height 172.7 cm [facility] 11-15-2019 08:09-0400 Pulse (Heart Rate) 95 /min [facility] 11-15-2019 08:09-0400 Pulse Oximetry 98 % [facility] 11-15-2019 08:09-0400 Respiratory Rate 18 /min [facility] 11-07-2019 08:59-0400 BMI (Body Mass Index) 20.15 kg/m2 [facility] 11-07-2019 08:59-0400 Body Temperature 97.5 [degF] [facility] 11-07-2019 08:59-0400 Body weight 60.1 kg [facility] 11-07-2019 08:59-0400 BP Diastolic 70 mm[Hg] [facility] 11-07-2019 08:59-0400 BP Systolic 112 mm[Hg] [facility] 11-07-2019 08:59-0400 Height 172.7 cm [facility] 11-07-2019 08:59-0400 Pulse (Heart Rate) 79 /min [facility] 11-07-2019 08:59-0400 Pulse Oximetry 94 % [facility] 11-07-2019 08:59-0400 Respiratory Rate 16 /min [facility] 08-20-2019 08:49-0500 BMI (Body Mass Index) 19.48 kg/m2 [facility] 08-20-2019 08:49-0500 Body Temperature 97.81 [degF] [facility] 08-20-2019 08:49-0500 Body weight 58.11 kg [facility] 08-20-2019 08:49-0500 BP Diastolic 77 mm[Hg] [facility] 08-20-2019 08:49-0500 BP Systolic 132 mm[Hg] [facility] 08-20-2019 08:49-0500 Height 172.7 cm [facility] 08-20-2019 08:49-0500 Pulse (Heart Rate) 70 /min [facility] 08-20-2019 08:49-0500 Pulse Oximetry 95 % [facility] 08-20-2019 08:49-0500 Respiratory Rate 18 /min [facility] 07-23-2019 16:22-0500 BMI (Body Mass Index) 18.85 kg/m2 [facility] 07-23-2019 16:22-0500 Body Temperature 98.01 [degF] [facility] 07-23-2019 16:22-0500 Body weight 56.25 kg [facility] 07-23-2019 16:22-0500 BP Diastolic 70 mm[Hg] [facility] 07-23-2019 16:22-0500 BP Systolic 104 mm[Hg] [facility] 07-23-2019 16:22-0500 Height 172.7 cm [facility] 07-23-2019 16:22-0500 Pulse (Heart Rate) 70 /min [facility] 07-23-2019 16:22-0500 Pulse Oximetry 98 % [facility] 07-23-2019 16:22-0500 Respiratory Rate 18 /min [facility] 06-05-2019 11:57-0500 BP Diastolic 84 mm[Hg] [facility] 06-05-2019 11:57-0500 BP Systolic 140 mm[Hg] [facility] 06-05-2019 11:21-0500 BMI (Body Mass Index) 18.55 kg/m2 [facility] 06-05-2019 11:21-0500 Body Temperature 98.1 [degF] [facility] 06-05-2019 11:21-0500 Body weight 55.34 kg [facility] 06-05-2019 11:21-0500 Height 172.7 cm [facility] 06-05-2019 11:21-0500 Pulse (Heart Rate) 70 /min [facility] 06-05-2019 11:21-0500 Pulse Oximetry 97 % [facility] 06-05-2019 11:21-0500 Respiratory Rate 18 /min [facility] 05-01-2019 13:02-0400 BP Diastolic 86 mm[Hg] [facility] 05-01-2019 13:02-0400 BP Systolic 149 mm[Hg] [facility] 05-01-2019 13:02-0400 Pulse (Heart Rate) 71 /min [facility] 05-01-2019 13:02-0400 Pulse Oximetry 99 % [facility] 05-01-2019 13:02-0400 Respiratory Rate 13 /min [facility] 05-01-2019 12:42-0400 Body Temperature 97.2 [degF] [facility] 05-01-2019 11:38-0400 BMI (Body Mass Index) 18.7 kg/m2 [facility] 05-01-2019 11:38-0400 Body weight 55.79 kg [facility] 05-01-2019 11:38-0400 Height 172.7 cm [facility] 04-25-2019 15:43-0400 BMI (Body Mass Index) 18.4 kg/m2 [facility] 04-25-2019 15:43-0400 Body Temperature 98.01 [degF] [facility] 04-25-2019 15:43-0400 Body weight 54.88 kg [facility] 04-25-2019 15:43-0400 BP Diastolic 84 mm[Hg] [facility] 04-25-2019 15:43-0400 BP Systolic 123 mm[Hg] [facility] 04-25-2019 15:43-0400 Height 172.7 cm [facility] 04-25-2019 15:43-0400 Pulse (Heart Rate) 70 /min [facility] 04-25-2019 15:43-0400 Pulse Oximetry 98 % [facility] 04-25-2019 15:43-0400 Respiratory Rate 18 /min [facility] 04-10-2019 11:36-0400 BMI (Body Mass Index) 19.08 kg/m2 [facility] 04-10-2019 11:36-0400 Body Temperature 98.29 [degF] [facility] 04-10-2019 11:36-0400 Body weight 56.93 kg [facility] 04-10-2019 11:36-0400 BP Diastolic 73 mm[Hg] [facility] 04-10-2019 11:36-0400 BP Systolic 108 mm[Hg] [facility] 04-10-2019 11:36-0400 Height 172.7 cm [facility] 04-10-2019 11:36-0400 Pulse (Heart Rate) 87 /min [facility] 04-10-2019 11:36-0400 Pulse Oximetry 92 % [facility] 03-05-2019 08:23-0400 BMI (Body Mass Index) 18.88 kg/m2 [facility] 03-05-2019 08:23-0400 Body Temperature 97.9 [degF] [facility] 03-05-2019 08:23-0400 Body weight 56.34 kg [facility] 03-05-2019 08:23-0400 BP Diastolic 63 mm[Hg] [facility] 03-05-2019 08:23-0400 BP Systolic 101 mm[Hg] [facility] 03-05-2019 08:23-0400 Height 172.7 cm [facility] 03-05-2019 08:23-0400 Pulse (Heart Rate) 65 /min [facility] 03-05-2019 08:23-0400 Pulse Oximetry 96 % [facility] 03-05-2019 08:23-0400 Respiratory Rate 16 /min [facility] 08-20-2018 17:56-0500 BMI (Body Mass Index) 19.95 kg/m2 [facility] 08-20-2018 17:56-0500 Body Temperature 97.59 [degF] [facility] 08-20-2018 17:56-0500 BP Diastolic 70 mm[Hg] [facility] 08-20-2018 17:56-0500 BP Systolic 112 mm[Hg] [facility] 08-20-2018 17:56-0500 Height 172.7 cm [facility] 08-20-2018 17:56-0500 Pulse (Heart Rate) 71 /min [facility] 08-20-2018 17:56-0500 Pulse Oximetry 98 % [facility] 08-20-2018 17:56-0500 Respiratory Rate 16 /min [facility] 08-20-2018 17:56-0500 Weight 59.51 kg [facility] 11-06-2017 14:22-0400 BMI (Body Mass Index) 18.7 kg/m2 [facility] 11-06-2017 14:22-0400 Body Temperature 98.2 [degF] [facility] 11-06-2017 14:22-0400 BP Diastolic 72 mm[Hg] [facility] 11-06-2017 14:22-0400 BP Systolic 124 mm[Hg] [facility] 11-06-2017 14:22-0400 Height 172.7 cm [facility] 11-06-2017 14:22-0400 Pulse (Heart Rate) 73 /min [facility] 11-06-2017 14:22-0400 Pulse Oximetry 98 % [facility] 11-06-2017 14:22-0400 Respiratory Rate 18 /min [facility] 11-06-2017 14:22-0400 Weight 55.79 kg [facility] 10-11-2017 11:21-0400 BMI (Body Mass Index) 19.78 kg/m2 [facility] 10-11-2017 11:21-0400 Body Temperature 97.5 [degF] [facility] 10-11-2017 11:21-0400 BP Diastolic 65 mm[Hg] [facility] 10-11-2017 11:21-0400 BP Systolic 105 mm[Hg] [facility] 10-11-2017 11:21-0400 Height 172.7 cm [facility] 10-11-2017 11:21-0400 Pulse (Heart Rate) 69 /min [facility] 10-11-2017 11:21-0400 Pulse Oximetry 98 % [facility] 10-11-2017 11:21-0400 Respiratory Rate 16 /min [facility] 10-11-2017 11:21-0400 Weight 59.01 kg [facility] 03-10-2017 11:16-0400 BMI (Body Mass Index) 20.68 kg/m2 [facility] Work Phone: 03-10-2017 11:16-0400 Body Temperature 98.1 [degF] [facility] Work Phone: 03-10-2017 11:16-0400 BP Diastolic 83 mm[Hg] [facility] Work Phone: 03-10-2017 11:16-0400 BP Systolic 122 mm[Hg] [facility] Work Phone: 03-10-2017 11:16-0400 Height 172.7 cm [facility] Work Phone: 03-10-2017 11:16-0400 Pulse (Heart Rate) 76 /min [facility] Work Phone: 03-10-2017 11:16-0400 Pulse Oximetry 98 % [facility] Work Phone: 03-10-2017 11:16-0400 Respiratory Rate 16 /min [facility] Work Phone: 03-10-2017 11:16-0400 Weight 61.69 kg Buzz Montes [facility] Work Phone: Encounters Encounter Date Encounter Type Care Provider Facility Start: 06-01-2023 End: 06-02-2023 Emergency department patient visit [facility] Start: 06-01-2023 End: 06-01-2023 Emergency department patient visit [facility] Start: 12-14-2022 End: 12-18-2022 ambulatory PHYSICIAN [facility] Start: 11-16-2021 End: 11-16-2021 Office outpatient visit 15 minutes Tiffanie Beasley MD Work Phone: [facility] Internal Medicine [place] Procedures Date Procedure Procedure Detail Performing Clinician Start: 05-01-2019 End: 05-01-2019 Colonoscopy DonJamgoe [facility] Work Phone: Start: 05-01-2019 Cul bact aerobic add l meths definitive ea isol Donnamarie [facility] Work Phone: Start: 05-01-2019 Endoscopy of esophagus Donnamarie [facility] Work Phone: Start: 04-25-2019 Adult depression scr eening assessment Angi Spring Start: 03-05-2019 Adult depression scr eening assessment Donnamarie [facility] Start: 10-11-2017 Microscopic observat ion [Identifier] in Cervix by Cyto stain [facility] Plan of Treatment Date Care Activity Detail Author Start: 05-01-2029 Screening for malignant neoplasm of colon [facility] Start: 10-12-2027 Tetanus vaccination [facility] Start: 03-03-2022 Influenza vaccination INFLUENZA VACCINE (Season Ended) Start: 12-16-2021 End: 12-16-2021 Patient encounter procedure 12/16/2021 Office Visit Internal Medicine Tiffanie Beasley MD [address] [address] [facility] Start: 11-16-2021 End: 11-16-2021 Patient encounter procedure 11/16/2021 Office Visit Internal Medicine Tiffanie Beasley MD [address] [address] [facility] Start: 10-18-2021 End: 10-18-2021 Patient encounter procedure 10/18/2021 Office Visit Internal Medicine Tiffanie Beasley MD [address] [place] [id number] [facility] Start: 03-25-2021 End: 03-25-2021 Patient encounter procedure 03/25/2021 Office Visit Internal Medicine Tiffanie Beasley MD [address] [place] [id number] [facility] Start: 03-03-2021 Influenza vaccination INFLUENZA VACCINE (#1) [facility] Start: 01-27-2021 Depression Remission Assessment (PHQ9) Depression Remission Assessment (PHQ9) [facility] Start: 01-12-2021 COVID-19 VACCINE (2 - Moderna 2-dose series) COVID-19 VACCINE (2 - Moderna 2-dose series) Start: 10-11-2020 Screening for malignant neoplasm of cervix PAP SMEAR [facility] Start: 09-29-2020 End: 09-29-2020 Office Visit [facility] Start: 2020 Administration of herpes zoster vaccine Zoster Vaccines (1 of 2) [facility] Start: 2020 Screening for malignant neoplasm of colon [facility] Start: 2020 Screening for malignant neoplasm of lung LUNG CANCER SCREENING Start: 2020 Zoster vaccine hzv live for subcutaneous use ZOSTER (SHINGLES) VACCINE (1 of 2) Start: 07-04-2020 Patient Risk Level Override Patient Risk Level Override [facility] Start: 06-29-2020 End: 06-29-2020 Office Visit 06/29/2020 Office Visit Primary Care Angi Schmidt [employer] [address] [id number] [phone] [facility] Start: 04-25-2020 Depression screening using PHQ-9 (Patient Health Questionnaire 9) score DEPRESSION SCREENING (PHQ9) [facility] Start: 03-30-2020 End: 03-30-2020 Office Visit 03/30/2020 Office Visit Primary Care Angi Schmidt [employer] [address] [id number] [phone] [facility] Start: 03-26-2020 Screening mammography Mammogram [facility] Immunizations Immunization Date Immunization Notes Care Provider Fa cility 04-25-2019 Seasonal, quadrivalent, recombinant, injectable influenza vaccine, preservative free [facility] 04-25-2019 flu vac qv 2019,18yr up,rc,PF, (FLUBLOK QUAD) syringe [facility] 04-25-2019 influenza virus vaccine, unspecified formulation Tiffanie Beasley MD Work Phone: Payers Date Payer Category Payer Unknown [id number] 2021 Unknown [employer] PPO POS [id number] 2021-Present [address] [place] [address] [id number] 2017 Unknown xxxxxxxxxxxx [id number] 2017 Unknown [id number] 2017 Unknown [employer] PPO [id number] 2017-Present [id number] 2016 Medicaid [id number] 2016 Unknown [id number] 1970 Unknown [id number] 1970 Unknown [id number] [id number]. 1970 Unknown [id number] [id number] 1970 Unknown [id number] [id number]. 1970 Unknown [id number] [id number]. 1970 Unknown [id number] [id number] 1970 Unknown [id number] [id number] 1970 Unknown [id number] [id number]. 1970 Unknown [id number] [id number] 1970 Unknown [id number] [id number]. 1970 Unknown [id number] [id number] 1970 Unknown [id number] [id number]. Medicaid [id number] Social History Date Type Detail Facility Start: 11-15-2017 End: 03-29-2019 Tobacco smoking status [facility] Current every day smoker Start: 11-15-2017 End: 03-29-2019 Cigarettes smoked current (pack per day) - Reported [facility] Work Phone: Start: 1970 Sex Assigned At Not on file [facility] Work Phone: Start: 11-15-2017 Tobacco Comment Patient needs to quit smoking [facility] Start: 03-05-2019 End: 07-07-2020 Alcohol intake Current non-drinker of alcohol (finding) [facility] Start: 03-05-2019 History SDOH [facility] Start: 03-05-2019 End: 02-23-2021 History SDOH [facility] W[facility] Exposure to SARS-CoV -2 (event) Not sure [facility] Exposure to SARS-CoV -2 (event) Unable to assess [facility] Start: 03-29-2019 End: 02-26-2020 Tobacco use and exposure Never used [facility] History of tobacco use Cigarette Smoker [facility] Start: 09-17-2021 End: 11-16-2021 Alcohol intake Ex-drinker (finding) Start: 02-23-2021 History SDOH Alcohol Comment last drink 7 years ago Goals Date Patient Goal Desired Activity /State [...] program since 2013. She was referred by [facility]. She Is not attending counseling. This patient [...] program since 2013. She was referred by [facility]. She Is not attending counseling. This patient [...] Beasley MD 11/16/2021 documented in this encounter History of Present illness Narrative 10-18-2021 Christen [...] program since 2013. She was referred by [facility]. She Is not attending counseling. This patient [...] program since 2013. She was referred by [facility]. She Is not attending counseling. This patient [...] Beasley MD 10/18/2021 documented in this encounter History of Present illness Narrative 09-17-2021 Christen [...] program since 2013. She was referred by [facility]. She Is not attending counseling. This patient [...] program since 2013. She was referred by [facility]. She Is not attending counseling. This patient [...] Beasley MD 09/17/2021 documented in this encounter History of Present illness Narrative 02-23-2021 Tiffanie Beasley MD - 02/23/2021 2:45 PM Claudia Campo MA - 02/23/2021 2:45 PM EDT Note Date & Type Note Facility 02-23-2021 History of Presen t illness Narrative Miladys Ernandze presents to the office with Chief Complaint [...] Social Gatherings with Friends and Family: Attends Taoist Services: Active Member of Clubs or Organizations: [...] program since 2013. She was referred by [facility]. She Is not attending counseling. This patient does not have current prescription for naloxone. documented in this encounter Evaluation note Note Date & Type Note Facility documented in this encounter Evaluation note Note Date & Type Note Facility documented in this encounter Evaluation note Note Date & Type Note Facility documented in this encounter [facility] Instructions * Patient Instructions - [...] likely if you get in at least 0721-9980 arvind a day you will gain weight [...] take for pain. Your doctor may recommend pzmn-tgb-odumlhw medicine. For mild or occasional indigestion, antacids such as Tums, Gaviscon, Maalox, or Mylanta may help. Your doctor also may recommend mhlo-uyr-cjxzwqm acid reducers, such as famotidine (Pepcid AC), [...] Log into your personal health record on https://Anygmat.Therapeutic Systems and enter T074 in the Education box to learn more about Hiatal Hernia: Care Instructions. Current as of: February 09, 2016 Content Version: 11.2 8691-1802 [employer]. Care instructions adapted under license by your healthcare professional. If you have questions about a medical condition or this instruction, always ask your healthcare professional. [employer] disclaims any warranty or liability for your [...] Log into your personal health record on https://Arrowsight.[employer] and enter R113 in the Education box to learn more about Learning About Chilo Fundoplication Surgery. Current as of: February 09, 2016 Content Version: 11.2 9158-4527 [employer]. Care instructions adapted under license by your healthcare professional. If you have questions about a medical condition or this instruction, always ask your healthcare professional. [employer] disclaims any warranty or liability for your use of this information. in this encounter* Patient Instructions* Angi Schmidt CNP - 08/20/2018 6:54 PM EST Problem List Items Addressed This Visit Other Encounter for physical examination related to employment Everything on exam today looked great, no issues that would be concerning for working at [employer].Will fill out your paperwork and fax it [...] Log into your personal health record on https://Arrowsight.Therapeutic Systems and enter O319 in the Education box to learn more about Learning About Benefits From Quitting Smoking. Current as of: March 28, 2018 Content Version: 11.9 9585-5527 [employer]. Care instructions adapted under license by your healthcare professional. If you have questions about a medical condition or this instruction, always ask your healthcare professional. [employer] disclaims any warranty or liability for your [...] look into their status. Customer Service/Billing Questions: [phone] MyChart Assistance: [phone] or [phone] Financial Assistance: [phone] or [phone] documented in this encounter* Patient Instructions* Angi [...] look into their status. Customer Service/Billing Questions: [phone] [facility] Assistance: [phone] or [phone] Financial Assistance: [phone] or [phone] documented in this encounter* Patient Instructions* Angi [...] look into their status. Customer Service/Billing Questions: [phone] MyChart Assistance: [phone] or [phone] Financial Assistance: [phone] or [phone] As of July 08, 2019 my schedule [...] look into their status. Customer Service/Billing Questions: [phone] MyChart Assistance: [phone] or [phone] Financial Assistance: [phone] or [phone] As of July 08, 2019 my schedule [...] look into their status. Customer Service/Billing Questions: [phone] MyChart Assistance: [phone] or [phone] Financial Assistance: [phone] or [phone] As of July 08, 2019 my schedule [...] look into their status. Customer Service/Billing Questions: [phone] MyChart Assistance: [phone] or [phone] Financial Assistance: [phone] or [phone] As of July 08, 2019 my schedule [...] look into their status. Customer Service/Billing Questions: [phone] bencheeharenosiX Assistance: [phone] or [phone] Financial Assistance: [phone] or [phone] As of July 08, 2019 my schedule [...] (HCC) Continue to follow closely with your client renewal specialist. Let me or him know immediatly [...] look into their status. Customer Service/Billing Questions: [phone] MyChart Assistance: [phone] or [phone] Financial Assistance: [phone] or [phone] As of July 08, 2019 my schedule [...] look into their status. Customer Service/Billing Questions: [phone] MyChart Assistance: [phone] or [phone] Financial Assistance: [phone] or [phone] documented in this encounter* Patient Instructions* Angi Scmhidt CNP - 06/05/2019 12:02 PM EST Problem [...] look into their status. Customer Service/Billing Questions: [phone] MyChart Assistance: [phone] or [phone] Financial Assistance: [phone] or [phone] As of July 08, 2019 my schedule [...] FoundDocuments on File Type Date Recorded Patient Delivery Representative Expl anation Advance Directives and Living Will Documents on File Type Date Recorded Patient Delivery Representative Expl anation Advance Directives and Living Will Documents on File Type Date Recorded Patient Delivery Representative Expl anation Advance Directives and Livin g Will 05/01/2019 10:53 AM Documents on File Type Date Recorded Patient Delivery Representative Expl anation Advance Directives and Livin g Will 05/01/2019 10:53 AM Documents on File Type Date Recorded Patient Delivery Representative Expl anation Advance Directives and Livin g Will 04/13/2020 12:00 AM Documents on File Type Date Recorded Patient Delivery Representative Expl anation Advance Directives and Livin g Will 04/13/2020 12:00 AM History of Present Illness * Angi Schmidt, SUPERVISOR ASSEMBLY - 08/22/2018 8:53 PM EST Subjective Patient ID: Miladys Ernandez is a 48 y.o. female. Patient is here for a physical for her place of employment, [employer]. Denies any issues or complaints at today's [...] SHARP W/ SUCTION) 1990 ESOPHAGOGASTRODUODENOSCOPY HYSTERECTOMY 2008 [facility]-Has one ovary, unsure which she has TUBAL LIGATION Assessment/Plan: Problem List Items Addressed This Visit Other Encounter for physical examination related to employment - Primary Everything on exam today looked great, no issues that would be concerning for working at [employer].Will fill out your paperwork and fax it [...] EXAMINATION Patient Name: Miladys Ernandez MR #: [id number] : 1970 Physicians: Angi Schmidt, JAY (Family); [...] Mari Foot abscess 10/19/2018 Info Gained From: [facility] ED report --- Jeremi Sanford MD Sciatica 2007 Dr. Mari Past Surgical History: Procedure Laterality Date COLONOSCOPY [facility] (DIL & CURETTAGE, SHARP W/ SUCTION) 1990 ESOPHAGOGASTRODUODENOSCOPY HYSTERECTOMY 11/10/2009 [facility], [facility], vaginal with right salpingo-oophorectomy......Dr. Canales TUBAL [...] Gets together: Three times a week Attends religion service: Not on file Active member of [...] conjunction with the immunization order to satisfy [place] Board [place] Pharmacy Positive ID requirements for [...] for EPEC. She is interested in seeing food tray assembler to find some answers. Colonoscopy/EGD done by [...] conjunction with the immunization order to satisfy [place] Board [place] Pharmacy Positive ID requirements for [...] disorder Foot abscess 10/19/2018 Info Gained From: [facility] ED report --- Jeremi Sanford MD Sciatica 2007 Dr. Mari Past Surgical History: Procedure Laterality Date COLONOSCOPY [facility] [place] COLONOSCOPY N/A 05/01/2019 Procedure: COLONOSCOPY with biopsy; Surgeon: Camelia Tracy MD; Location: [facility]; Service: General Surgery D&C (DIL & CURETTAGE, SHARP W/ SUCTION) 1990 EGD N/A 05/01/2019 Procedure: ESOPHAGOGASTRODUODENOSCOPY with biopsy; Surgeon: Camelia Tracy MD; Location: [facility]; Service: General Surgery ESOPHAGOGASTRODUODENOSCOPY HYSTERECTOMY 11/10/2009 [facility], [facility], vaginal with right salpingo-oophorectomy......Dr. Canales TUBAL [...] conjunction with the immunization order to satisfy [place] Board [place] Pharmacy Positive ID requirements for [...] Gets together: Three times a week Attends religion service: Not on file Active member of [...] A total of 45 minutes were spent xqab-ev-kdqd for this visit with more than 50% of the time spent in counseling and management. Sincerely; Abhay Keyes MD CC: Angi Schmidt CNP IMPORTANT: Please note that some portions of this note may have been created using [employer] voice recognition software. Some sound-like and a [...] pain is theworst. She is using a [employer] brand of mouth wash and it is not helping with the pain. She states due to the pain she is using more of her Gabapentin than prescribed. She is currently [id number] mg 4 times a day. She states [...] her home, encouraged Miladys to talked to [facility] psych social worker to help with these decisions. Encouraged her [...] is also going to have issues because [employer] check paid for the rent on the house she is living in. This patient is in need of finding new housing options [facility]. The following were reviewed and updated as [...] (HCC) Continue to follow closely with your client renewal specialist. Let me or him know immediatly [...] and potential side effects of the medications. [facility] Depression Screening 03/05/2019 04/25/2019 03/30/2020 Little interest [...] PM EDT [facility] [address] ([address]) [facility] [address] [facility] [id number] Miladys Ernandez is a 49 y.o. female [...] assist patient as needed. MIGUEL Diaz, VENUS Steel Worker Care Management [facility] [phone] documented in this encounter* Angi Schmidt CNP [...] refills again, she has not notified her client renewal specialist that she is not taking her [...] outreach in one week. MIGUEL Diaz LSW Steel Worker Care Management [facility] [phone] documented in this encounter* Angi Schmidt CNP [...] conjunction with the immunization order to satisfy [place] Board of Pharmacy Positive ID requirements for [...] unspecified, unspecified gastritis type Angi Schmidt CNP [address] [place] [id number] Olivier Nassar MD [address] [place] [id number] Status Reason Specialty Diagnoses / Procedures Referred By Contact Referred To Contact Pending Review Radiology Diagnoses Cigarette nicotine dependence with nicotine-induced disorder Weight loss Chronic cough Procedures CT Chest Low Dose Lung Diagnostic - Only LCSP Angi Schmidt CNP [address] [place] [address] Status Reason Specialty Diagnoses / Procedures Referred By Contact Referred To Contact Authorized Gastroenterology Diagnoses Diarrhea, unspecified type Weight loss Angi Schmidt, JAY [address] [place] [address] Abhay Keyes MD [address] [place] [address] Status Reason Specialty Diagnoses / Procedures Referred By Contact Referred To Contact Authorized Gastroenterology Diagnoses Duodenitis Weight loss Diarrhea, unspecified type Angi Schmidt CNP [address] [place] [address] Jan Rachel MD [address] [place] [address] Status Reason Specialty Diagnoses / Procedures Referred By Contact Referred To Contact Authorized Orthopedic Surgery Diagnoses 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 Numbness and tingling of both lower extremities Angi Schmidt CNP [address] [place] [address] Zachary Chin MD [address] [place] [address] Status Reason Specialty Diagnoses / Procedures Referred By Contact Referred To Contact Closed Specialty Services Required/Patien t's Best Interest Care Management Diagnoses 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) Weight loss Angi Schmidt CNP [address] [place] [address] [facility] [address] Discharge Instructions * Discharge [facility] First Page* Camelia Tracy MD - 05/01/2019 [...] your doctor if you can take an zspj-qkm-vepljam medicine. Keep the anal area clean, but [...] or psyllium (available in bulk at most [employer] stores) and sprinkling it on foods or [...] Log into your personal health record on https://Anygmat.Therapeutic Systems and enter F228 in the Education box to learn more about Hemorrhoids: Care Instructions. Current as of: May 09, 2018 Content Version: 12.1 5562-7602 [employer]em[employer]. Care instructions adapted under license by your healthcare professional. If you have questions about a medical condition or this instruction, always ask your healthcare professional. [employer] disclaims any warranty or liability for your [...] likely if you get in at least 8461-2702 arvind a day you will gain weight [...] that would be concerning for working at [employer]. Will fill out your paperwork and fax [...] (HCC) Continue to follow closely with your client renewal specialist. Let me or him know immediatly [...] DATE CREATED AUTHOR AUTHOR'S ORGANIZ ATION 12/21/2017 [facility] DATE CREATED AUTHOR AUTHOR'S ORGANIZ ATION 12/29/2017 [facility] DATE CREATED AUTHOR AUTHOR'S ORGANIZ ATION 06/30/2020 [facility] DATE CREATED AUTHOR AUTHOR'S ORGANIZ ATION 12/27/2022 [facility] DATE CREATED AUTHOR AUTHOR'S ORGANIZ ATION 06/04/2023 [facility] Reason for Visit (unrecogniz ed section and content) Reason Comments Medication Refill Reason Comments Consult egd and colonoscopy Status Reason Specialty Diagnoses / Procedures Referred By Contact Referred To Contact Closed General Surgery Diagnoses Weight loss Gastroesophageal reflux disease, esophagitis presence not specified Diarrhea, unspecified type Acute gastritis, presence of bleeding unspecified, unspecified gastritis type Angi Schmidt CNP [address] [place] [address] Camelia Tracy MD [address] [place] [address] Reason Comments Follow-up review medications, upset stomach Status Reason Specialty Diagnoses / Procedures Re ferred By Contact Referred To Contact Diagnoses Weight loss Gastroesophageal reflux disease, esophagitis presence not specified Diarrhea, unspecified type Weight loss [R63.4] Gastroesophageal reflux disease, esophagitis presence not specified [K21.9] Diarrhea, unspecified type [R19.7] Procedures LA COLONOSCOPY FLX DX W/COLLJ SPEC WHEN PFRMD LA ESOPHAGOGASTRODUODENOSCOPY TRANSORAL DIAGNOSTIC Camelia Tracy MD [address] [place] [address] Reason Comments Follow-up Pt reports still hav ing diarrhea using pepto tablets Reason Comments Consult diarrhea and weight loss states has improved since starting loperamide Status Reason Specialty Diagnoses / Procedures Referred By Contact Referred To Contact Closed Gastroenterology Diagnoses Diarrhea, unspecified type Weight loss Angi Schmidt, SUPERVISOR ASSEMBLY [address] [id number] Abhay Keyes MD [address] [place] [address] Reason Comments Diarrhea A FEW WEEKS Dental [...] tingling of both lower extremities Angi Schmidt, SUPERVISOR ASSEMBLY [address] [place] [address] Zachary Chin MD [address] [place] [address] Reason Onset Date Comments Chronic Care Management [...] Miladys Ernandez Admit Date: [id number] MR #: [id number] : 1970 The H&P has been reviewed and the patient has been examined. I concur with the findings of the H&P. There are no significant changes. It is appropriate to proceed with the planned procedure. Camelia Tracy MD 05/01/2019 11:40 AM HISTORY & PHYSICAL EXAMINATION Patient Name: Miladys Enrandez MR #: [id number] : 1970 Physicians: Angi Schmidt CNP (Family); [...] Mari Foot abscess 10/19/2018 Info Gained From: [facility] ED report --- Jeremi Sanford MD Sciatica 2007 Dr. Mari Past Surgical History: Procedure Laterality Date COLONOSCOPY [facility] D[facility]C (DIL & CURETTAGE, SHARP W/ SUCTION) 1990 ESOPHAGOGASTRODUODENOSCOPY HYSTERECTOMY 11/10/2009 [facility], [facility], vaginal with right salpingo-oophorectomy......Dr. Canales TUBAL [...] Gets together: Three times a week Attends religion service: Not on file Active member of [...] Care Teams (unrecognized sec tion and content) Sas Statistical Programmer Relationship Specialty Start Date End Date Miranda Jensen PA-C [address] [address] PCP - General 03/29/19 Sas Statistical Programmer Relationship Specialty Start Date End Date Miranda Jensen PA-C [address] [address] PCP - General 03/29/19 FOR RECORDS PERTAINING [...] BE BASED ON THE PRIMARY CLINICAL RECORDS. [employer] provides no warranty or guarantee of the accuracy or completeness of information in this document.
== END | disposition home or self-care (01) ==
LOC: CVS 09:04
PROVIDERS: PCP Internal Medicine; Referring Provider Physician Assistant; Visit Provider Physician Assistant
DX: I70.222 Atherosclerosis of native arteries of extremities with rest pain, left leg (principal); I75.022 Atheroembolism of left lower extremity; I70.0 Atherosclerosis of aorta; Z48.812 Encounter for surgical aftercare following surgery on the circulatory system
CPT/HCPCS: 93922; 93978

== ENCOUNTER → 2024-01-10 | Outpatient (CLI) | payer BC, SELFPAY ==
[2024-01-10 16:58] LABS: Absolute Lymphocyte Count 1.75 X10^3/uL (0.83-4.51); Absolute Neutrophil Count 4.3 X10^3/uL (2.0-7.7); Basophil# 0.05 X10^3/uL; Basophil% 0.7 % (0-1); Eosinophil# 0.07 X10^3/uL; Hematocrit 38.8 % (37-47); Hemoglobin 12.8 g/dL (12.0-15.0); Lymphocyte # 1.75 X10^3/ul (0.83-4.51); Lymphocyte % 26.1 % (19-41); Mean Corpuscular Hgb 29.8 pg (27.0-32.0); Mean Corpuscular Volume 90.2 fL (81-99); Mean Platelet Vol. 11.2 fl (6.2-12.0); Monocyte# 0.49 X10^3/uL; Monocyte% 7.3 % (0-10); NRBC Flagged by Analyzer 0 % (0-5); Neutrophil # 4.32 X10^3/uL (2.7-7.7); Neutrophil % 64.5 % (47-70); Platelet Count 252 K/mm3 (150-450); RBC Distribution Width CV 12.1 % (11.6-14.6); RBC Distribution Width SD 39.8 fl (35.1-43.9); White Blood Count 6.7 K/mm3 (4.4-11.0)
[2024-01-10 17:20] LABS: ALB/GLOB Ratio 1.4 RATIO (0.9-2.4); AST(SGOT) 18 U/L (15-37); Alanine Aminotransfer ALT/SGPT 20 U/L (13-56); Albumin, Serum 4.1 g/dL (3.2-5.0); Alkaline Phosphatase 66 U/L (45-117); Anion Gap 5 (5-15); BUN 6 mg/dL (7-18); BUN/Creat Ratio 6.5 RATIO (10-20); Calcium,Total 9.4 mg/dL (8.5-10.1); Chloride 103 mmol/L (98-107); Creatinine, Serum 0.92 mg/dL (0.55-1.02); EST Glomerular Filtration Rate 68 mL/min (>60); Est Glom Filt Rate - Afr Amer 82 mL/min (>60); Glucose 104 mg/dL (74-106); Potassium 4.7 mmol/L (3.5-5.1); Protein, Total 7.1 g/dL (6.4-8.2); Sodium Level 137 mmol/L (136-145)
== END | disposition home or self-care (01) ==
LOC: BIMLAB 14:49
PROVIDERS: PCP Internal Medicine; Referring Provider Internal Medicine; Visit Provider Internal Medicine
DX: I70.222 Atherosclerosis of native arteries of extremities with rest pain, left leg (principal); I70.0 Atherosclerosis of aorta
CPT/HCPCS: 36415; 80053; 85025

== ENCOUNTER → 2024-02-15 | Outpatient (CLI) | payer BC, SELFPAY ==
--- NOTE | 2024-02-15 07:48 | AAVD_ITS ---
Reason For Study: HX BLE Stents Aorta Measurements Aorta Doppler Measurements Proximal aorta measures1.51 x 1.46cm. in cross- Peak systolic flow velocities within the proximal sectional axis. aorta measure 74.4 cm/sec. Proximal aorta measures1.56cm. in longitudinal Peak systolic flow velocities within the mid aorta axis. measure 79.6 cm/sec. Mid aorta measures1.51 x 1.62cm. in cross- Peak systolic flow velocities within the distal sectional axis. aorta measure 68.7 cm/sec. Mid aorta measures1.56cm. in longitudinal axis. Distal aorta measures1.10 x 1.22cm. in cross- sectional axis. Distal aorta measures1.24cm. in longitudinal axis. Stent noted at Distal AO. Left Iliac Artery Left iliac artery measures 0.71 x 0.76 cm. in the cross-sectional axis. Left iliac artery measures 0.78 cm. in the longitudinal axis. Peak systolic velocity in the left iliac artery measures 150.1 cm/sec. Stent Noted. Right Iliac Artery Right iliac artery measures 0.64 x 0.65 cm. in the cross-sectional axis. Right iliac artery measures 0.68 cm. in the longitudinal axis. Peak systolic velocity in the right iliac artery measures 133.9 cm/sec. Stent Noted. Procedure Aorta IVC Iliac vasculature or bypass grafts [id number]. The exam was diagnostic. Limited Iliac A Views obtained due to lower bowel gas. Exam performed in department. VL/Abd Aortic/IVC Duplex scan Interpretation Summary Aorta patent, normal caliber. Bilateral iliac arteries patent, normal caliber. Patent stents with no stenosis . Ordering Physician: Bharati Prado Referring Physician: Julisa Johnson Performed By: Wayne Denny, RVT
--- NOTE | 2024-02-15 07:48 | ART_ITS ---
Reason For Study: HX BLE Iliac Stents Procedure A bilateral lower extremity continuous wave Doppler with analog waveform analysis and ankle brachial indexes. Left Segmental Pressures Left brachial= 125mmHg. Left posterior tibial artery = 148mmHg. Left dorsalis pedis artery = 144mmHg. The left posterior tibial artery waveforms are triphasic. The left dorsalis pedis waveforms are triphasic. Right Segmental Pressures Right brachial= 133mmHg. Right posterior tibial artery = 144mmHg. Right dorsalis pedis artery = 136mmHg. The right posterior tibial artery waveforms are triphasic. The right dorsalis pedis waveforms are triphasic. Indices The right ankle brachial index by the posterior tibial artery is 1.08. The right ankle brachial index by the dorsalis pedis is 1.02. The left ankle brachial index by the posterior tibial artery is 1.11. The left ankle brachial index by the dorsalis pedis is 1.08. VL/Ankle Brachial Index Interpretation Summary Right AJAY 1.08, normal. Doppler/PVR waveforms of the right ankle normal at rest . Left AJAY 1.11, normal. Doppler/PVR waveforms of the left ankle normal at rest. Ordering Physician: Bharati Prado Referring Physician: Julisa Johnson Performed By: MARY ALONSO Kamilla
== END | disposition home or self-care (01) ==
LOC: CVS 07:47
PROVIDERS: PCP Internal Medicine; Referring Provider Physician Assistant; Visit Provider Physician Assistant
DX: I70.222 Atherosclerosis of native arteries of extremities with rest pain, left leg (principal); I70.0 Atherosclerosis of aorta; Z48.812 Encounter for surgical aftercare following surgery on the circulatory system
CPT/HCPCS: 93922; 93978

== ENCOUNTER → 2024-08-21 | Outpatient (CLI) | payer BC, SELFPAY ==
--- NOTE | 2024-08-21 08:54 | AAVD_ITS ---
Reason For Study Reason For Study: S/P Bilateral iliac stent Aorta Measurements Aorta Doppler Measurements Proximal aorta measures2.07 x 2.09cm. in cross-sectional Peak systolic flow velocities within the proximal aorta axis. measure 85 cm/sec. Proximal aorta measures2.02cm. in longitudinal axis. Peak systolic flow velocities within the mid aorta measure Mid aorta measures1.32 x 1.37cm. in cross-sectional axis. 79.6 cm/sec. Mid aorta measures1.38cm. in longitudinal axis. Peak systolic flow velocities within the distal aorta Distal aorta measures1.39 x 1.50cm. in cross-sectional axis.measure 123 cm/sec. Distal aorta measures1.44cm. in longitudinal axis. Stent noted in the distal aorta that measures 1.01 x 1.22 x 1.11 cm. Left Iliac Artery Left iliac artery measures 0.73 x 0.73 cm. in the cross-sectional axis. Left iliac artery measures 0.68 cm. in the longitudinal axis. Peak systolic velocity in the left iliac artery measures 200.2 cm/sec. Stent noted in the left WILBER. Right Iliac Artery Right iliac artery measures 0.74 x 0.77 cm. in the cross-sectional axis. Right iliac artery measures 0.70 cm. in the longitudinal axis. Peak systolic velocity in the right iliac artery measures 160 cm/sec. Stent noted in the right WILBER. Procedure Aorta IVC Iliac vasculature or bypass grafts [id number]. Exam performed in department. VL/Abd Aortic/IVC Duplex scan Interpretation Summary Aorta patent normal caliber Bilateral iliac stents patent with normal velocities and no evidence of stenosi s Ordering Physician: Bharati Prado Referring Physician: Julisa Johnson Performed By: Yanni Whitfield RVT
--- NOTE | 2024-08-21 08:54 | ART_ITS ---
Reason For Study Reason For Study: S/P Bilateral iliac stents Procedure A bilateral lower extremity continuous wave Doppler with analog waveform analysis and ankle brachial indexes. Left Segmental Pressures Left brachial= 136mmHg. Left posterior tibial artery = 143mmHg. Left dorsalis pedis artery = 131mmHg. Left digit = 54 mmHg. The left dorsalis pedis waveforms are triphasic. The left posterior tibial artery waveforms are triphasic. Right Segmental Pressures Right brachial= 141mmHg. Right posterior tibial artery = 141mmHg. Right dorsalis pedis artery = 149mmHg. Right digit = 113 mmHg. The right dorsalis pedis waveforms are triphasic. The right posterior tibial artery waveforms are triphasic. Indices The right ankle brachial index by the dorsalis pedis is 1.06. The right ankle brachial index by the posterior tibial artery is 1.00. The right digital-brachial index is 0.80. The left ankle brachial index by the dorsalis pedis is 0.93. The left ankle brachial index by the posterior tibial artery is 1.01. The left digital-brachial index is 0.38. VL/Ankle Brachial Index Interpretation Summary Right AJAY 1.06, normal. TBI and Doppler/PVR waveforms of the right ankle normal at rest. Left AJAY 1.01, normal. Doppler/PVR waveforms of the left ankle normal at rest. TBI diminished, pedal/digit disease vs spasm. Ordering Physician: Bharati Prado Referring Physician: Julisa Johnson Performed By: Yanni Whitfield RVT
== END | disposition home or self-care (01) ==
LOC: CVS 08:54
PROVIDERS: PCP Internal Medicine; Referring Provider Physician Assistant; Visit Provider Physician Assistant
DX: Z48.812 Encounter for surgical aftercare following surgery on the circulatory system (principal); Z95.820 Peripheral vascular angioplasty status with implants and grafts
CPT/HCPCS: 93922; 93978

== ENCOUNTER 2025-01-29 08:27 | Emergency (ER) | payer BC, SELFPAY ==
[2025-01-29 08:27] VITALS: BP 120/73; PULSE 58; RESP 16; TEMP 36; O2SAT 100; BMI 17.8
--- NOTE | 2025-01-29 08:44 | EX.ED.GENINJ ---
HPI History of Present Illness Chief Complaint: Nausea/Vomiting/Diarrhea Narrative Narrative: Chief complaint and HPI: Nausea. 54-year-old female with past medical history of CAD, PAD presents for evaluation of nausea. Patient states on 01/24 she developed nausea with multiple episodes of nonbilious/nonbloody emesis. She states her emesis has resolved however she has continued to be nauseous. Little p.o. intake secondary to symptoms. Patient states she is concerned that she is dehydrated. She does endorse trying a new vape pen prior to the nausea and vomiting. She denies any fever, chills, shortness of breath, chest pain, abdominal pain, diarrhea, constipation, dysuria. Patient states she saw her PCP yesterday. Review of systems: See HPI Medications: As listed on the chart Allergies: As listed on the chart PFSH: Per chart Vital signs: As listed on the chart. Reviewed. Physical exam: Gen: A&O x3, NAD Head: Normocephalic, atraumatic Eyes: No sclera icterus, conjunctiva clear ENT: Mildly dry mucous membranes Neck: Trachea midline, No JVD CV: RRR, no murmurs, no peripheral edema Resp: Lungs CTA BL, no w/r/c GI: Abd soft, non-distended, non-tender, no r/r/g Musc: Full ROM, no deformity Skin: Warm, dry Neuro: Alert, oriented, grossly intact, sensation intact Psych: Cooperative, appropriate mood and affect [facility] Medical History Abdominal pain Blue toe syndrome of left lower extremity Atherosclerosis of left lower extremity with rest pain Weight loss, non-intentional Preventative health care Colon cancer screening Screening for thyroid disorder Lumbar radiculopathy Ulcer of abdomen wall Rheumatoid arthritis Irritable bowel Hives Drug abuse Back problem Acute arthritis Allergies Anxiety Home Medications ?Medication ?Instructions ?Recorded ?Last Taken ?Type acetaminophen 325 mg capsule 325 mg PO ONCE PRN fever or pain 07/10/23 07/13/23 History (Tylenol) psyllium husk 0.52 gram capsule 0.52 g PO DAILY 07/10/23 Unknown History (Daily Fiber) buprenorphine 8 mg-naloxone 2 mg tab sublingual 08/01/23 Unknown History sublingual tablet rivaroxaban 2.5 mg tablet (Xarelto) 2.5 mg PO BID #60 tabs 06/24/24 Unknown Rx rosuvastatin 20 mg tablet 20 mg PO DAILY #30 tabs 06/25/24 Unknown Rx aspirin 81 mg tablet,delayed 81 mg PO QDAY 07/24/24 Unknown History release Abdominal binder #1 ea 10/21/24 Unknown Rx clopidogrel 75 mg tablet 75 mg PO QDAY 01/28/25 Unknown History metigkdj-tigh-oylt 8 mg-folic 400 1 tab PO QDAY 01/28/25 Unknown History mcg-K 50 mcg-lutein 300 mcg tablet (Centrum Silver Women) ondansetron 4 mg disintegrating 4 mg PO Q6H PRN nausea and 01/28/25 Unknown Rx tablet vomiting #20 tabs Allergy/AdvReac Type Severity Reaction Status Date / Time NSAIDS (Non-Steroidal Allergy Other Verified 01/29/25 08:29 Anti-Inflamma Family History Mother Hypertension Myocardial infarction, Onset Age: 76 Asthma Allergies Cancer Kidney disease Arthritis Father Hypertension Colon cancer, Onset Age: 56 Alcoholism Arthritis Cancer Sister Cancer, Onset Age: 46 unknown Arthritis Aunt Auto immune neutropenia Bleeding disorder Cancer Grandfather Heart disease Surgical History S/P insertion of iliac artery stent (~07/13/23) Tubal ligation status S/P ALONZO (total abdominal hysterectomy) Social History Smoking Status: Current every day smoker tobacco type: cigarettes and e-cigarettes alcohol intake: never substance use type: marijuana caffeine: Yes what type of physical activity do you participate in: walking seatbelt use: always do you feel safe at home: Yes additional social history: - [place] EXAM Physical Exam Const Vital Signs: 01/29/25 08:27 Temperature 96.8 F L Temperature Source Temporal Pulse Rate 58 L Respiratory Rate 16 Blood Pressure 120/73 Blood Pressure Mean 88 Pulse Ox 100 Oxygen Delivery Method Room Air MDM MDM MDM Narrative Medical decision making narrative: 54-year-old female with past medical history of CAD, PAD presents for evaluation of nausea. Patient states on 01/24 she developed nausea with multiple episodes of nonbilious/nonbloody emesis. She states her emesis has resolved however she has continued to be nauseous. Little p.o. intake secondary to symptoms. Differential diagnosis includes but is not limited to gastroenteritis, viral illness, electrolyte abnormality, REJI, UTI. On chart review, patient has history of drug abuse. Substance intoxication also included. NS bolus, Reglan ordered for symptoms. On physical exam, patient's abdomen is benign there through [address] I do not think any CT abdomen pelvis is needed. Will obtain basic labs including UA. On chart review, patient saw [facility] on 01/28/2025. I did review the note. Patient was recommended to take p.o. intake and obtain basic labs and TSH. Therefore TSH was added. CBC with pancytopenia. WBC 3.6, hemoglobin 11, platelet count 149. Patient has history of anemia in the past however her leukopenia and thrombocytopenia is new. She has a follow-up outpatient with her physician. CMP unremarkable. Lipase unremarkable. TSH unremarkable. Urine drug screen positive for cannabis and buprenorphine. Patient has a previous history of opiate abuse. UA is negative for UTI. No ketones. At this point in time, no clear etiology to explain patient's symptoms. May be viral in nature or secondary to cannabis. Patient already received home antiemetic from PCP. States she does not need a prescription. She was updated of all of her results and the plan for discharge home. Return precautions explained. She confirmed understanding the plan. Recommend abstaining from cannabis to see if symptoms improve. Impression: 1. Nausea 2. Pancytopenia 3. Marijuana abuse 4. Previous opiate abuse Lab Data Labs: Laboratory Results - last 24 hr 01/29/25 01/29/25 08:51 08:54 WBC 3.6 L RBC 3.57 L Hgb 11.0 L Hct 32.4 L MCV 90.8 MCH 30.8 MCHC 34.0 RDW Std Deviation 39.3 RDW Coeff of Jose 11.7 Plt Count 149 L MPV 11.0 Immature Gran % (Auto) 0.000 Neut % (Auto) 47.9 Lymph % (Auto) 37.6 [place] % (Auto) 10.6 H Eos % (Auto) 3.1 Baso % (Auto) 0.8 Absolute Neuts (auto) 1.7 L Absolute Lymphs (auto) 1.35 Nucleated RBC % 0 Sodium 138 Potassium 4.2 Chloride 102 Carbon Dioxide 27.3 Anion Gap 9 BUN 10 Creatinine 0.79 Estim Creat Clear Calc 68.44 Est GFR (MDRD) Non-Af 88 BUN/Creatinine Ratio 13.1 Glucose 98 Calcium 8.8 Total Bilirubin 0.16 AST 29 ALT 21 Alkaline Phosphatase 50 Total Protein 6.0 Albumin 4.1 Globulin 1.9 L Albumin/Globulin Ratio 2.1 Lipase 34 TSH 0.898 Urine Color Yellow Urine Clarity Clear Urine pH 6.0 Ur Specific [place] 1.015 Urine Protein 30 H Urine Glucose (UA) Normal Urine Ketones Negative Urine Occult Blood 50 H Urine Nitrite Negative Urine Bilirubin Negative Urine Urobilinogen 1 H Ur Leukocyte Esterase 100 H Urine RBC 5-10 SEEN Urine WBC 0-5 SEEN Ur Squamous Epith Cells 0-5 SEEN Urine Bacteria 0 SEEN Urine Mucus 0 SEEN Urine Opiates Screen NEGATIVE U Buprenorphine Qual PRESUMPTIVE POSITIVE Ur Oxycodone Screen NEGATIVE Urine Methadone Screen NEGATIVE Urine Fentanyl Screen NEGATIVE Ur Barbiturates Screen NEGATIVE Ur Phencyclidine Scrn NEGATIVE Ur Amphetamines Screen NEGATIVE U Benzodiazepines Scrn NEGATIVE Urine Cocaine Screen NEGATIVE U Cannabinoids Screen PRESUMPTIVE POSITIVE Discharge Plan Triage Chief Complaint: Nausea/Vomiting/Diarrhea ED Provider: Garret Jimenez Dx/Rx/DC Orders Prescriptions: No Action psyllium husk [Daily Fiber] 0.52 gram capsule 0.52 g PO DAILY acetaminophen [Tylenol] 325 mg capsule 325 mg PO ONCE PRN (Reason: fever or pain) buprenorphine-naloxone 8-2 mg tablet, sublingual sublingual Patient Comments: place 1 tablet under the tongue and ALLOW to dissolve twice a day aspirin 81 mg tablet,delayed release (DR/EC) 81 mg PO QDAY (DME) Abdominal binder See Rx Instructions .Route .MEDSUPPLY Qty: 1 0RF Rx Instructions: As directed Centrum Silver Women 8 mg iron-400 mcg-50 mcg tablet 1 tab PO QDAY clopidogrel 75 mg tablet 75 mg PO QDAY ondansetron 4 mg tablet,disintegrating 4 mg PO Q6H PRN (Reason: nausea and vomiting) Qty: 20 1RF Xarelto 2.5 mg tablet 2.5 mg PO BID Qty: 60 11RF rosuvastatin 20 mg tablet 20 mg PO DAILY Qty: 30 11RF Primary Care Provider: Julisa oJhnson Referrals: Julisa Johnson MD [Primary Care Provider] - Print Language: [place]
[2025-01-29] MEDS: 0.9% Normal Saline (1000mL) 1,000 ML 999 ML IV (08:49)
[2025-01-29 08:56] LABS: Mucous, Urine 0 SEEN /hpf (<or=2+)
[2025-01-29 09:01] LABS: Hematocrit 32.4 % (37-47); Hemoglobin 11.0 g/dL (12.0-15.0); Immature Granulocytes Count 0.000 X10^3/uL (0.0-0.0); Mean Corp Hgb Conc 34.0 g/dL (32-36); Mean Corpuscular Volume 90.8 fL (81-99); Mean Platelet Vol. 11.0 fl (6.2-12.0); NRBC Flagged by Analyzer 0 % (0-5); Platelet Count 149 K/mm3 (150-450); RBC Distribution Width CV 11.7 % (11.6-14.6); RBC Distribution Width SD 39.3 fl (35.1-43.9); Red Blood Count 3.57 M/mm3 (4.2-5.4); White Blood Count 3.6 K/mm3 (4.4-11.0)
[2025-01-29 09:04] LABS: Color, Urine Yellow (Yellow); Glucose, Dipstick Normal (Normal); Ketone-Dipstick Negative (Negative); Leukocyte Esterase-Dipstick 100 /ul (Negative); Nitrite-Dipstick Negative (Negative); Occult Blood-Urine 50 /ul (Negative); Protein-Dipstick 30 mg/dl (Negative); Specific Gravity, Urine 1.015 (1.002-1.030); Urine Bilirubin Dipstick Negative (Negative)
[2025-01-29 09:15] LABS: Red Blood Cells-Urine 5-10 SEEN /hpf (0-5)
[2025-01-29 09:16] LABS: Squamous Epithelial Cells - UA 0-5 SEEN /hpf (5-10)
[2025-01-29 09:29] LABS: AST(SGOT) 29 U/L (<=31); Alanine Aminotransfer ALT/SGPT 21 U/L (<=34); Albumin, Serum 4.1 g/dL (3.5-5.0); Alkaline Phosphatase 50 U/L (35-104); Anion Gap 9 (5-15); BUN 10 mg/dL (4-19); BUN/Creat Ratio 13.1 RATIO (10-20); Calcium,Total 8.8 mg/dL (7.6-11.0); Carbon Dioxide 27.3 mmol/L (21.0-32.0); Chloride 102 mmol/L (98-108); Estimated Creatinine Clearance 68.44 ml/min (50-250); Globulin 1.9 g/dL (2.2-4.2); Glucose 98 mg/dL (70-99); Lipase 34 U/L (13-75); Potassium 4.2 mmol/L (3.3-5.1)
[2025-01-29 09:36] LABS: Barbiturate Urine NEGATIVE (< 200 ng/mL); Benzodiazepine Urine NEGATIVE (< 200 ng/mL); PCP Urine NEGATIVE (< 25 ng/mL); THC Urine PRESUMPTIVE POSITIVE (< 50 ng/mL)
[2025-01-29 10:18] VITALS: BP 114/78; PULSE 64; RESP 18; TEMP 36.6; O2SAT 99
== END 2025-01-29 10:19 | disposition home or self-care (01) ==
PROVIDERS: Emergency Provider Surgery; PCP Internal Medicine; Visit Provider Surgery
DX: R11.2 Nausea with vomiting, unspecified (principal); D61.818 Other pancytopenia; R19.7 Diarrhea, unspecified; F12.10 Cannabis abuse, uncomplicated; I25.10 Atherosclerotic heart disease of native coronary artery without angina pectoris; Z86.59 Personal history of other mental and behavioral disorders; Z90.710 Acquired absence of both cervix and uterus; F17.290 Nicotine dependence, other tobacco product, uncomplicated
CPT/HCPCS: 80053; 80307; 81001; 83690; 84443; 85025; 96361; 96374; 99283

== ENCOUNTER → 2025-05-06 | Outpatient (CLI) | payer BC, SELFPAY ==
[2025-05-06 16:25] LABS: Hematocrit 35.5 % (37-47); Hemoglobin 12.0 g/dL (12.0-15.0); Immature Granulocytes Count 0.010 X10^3/uL (0.0-0.0); Mean Corp Hgb Conc 33.8 g/dL (32-36); Mean Corpuscular Volume 90.3 fL (81-99); Mean Platelet Vol. 10.4 fl (6.2-12.0); NRBC Flagged by Analyzer 0 % (0-5); Platelet Count 185 K/mm3 (150-450); RBC Distribution Width CV 12.1 % (11.6-14.6); RBC Distribution Width SD 40.4 fl (35.1-43.9); Red Blood Count 3.93 M/mm3 (4.2-5.4); White Blood Count 5.9 K/mm3 (4.4-11.0)
[2025-05-06 17:10] LABS: AST(SGOT) 27 U/L (<=31); Alanine Aminotransfer ALT/SGPT 17 U/L (<=34); Albumin, Serum 4.6 g/dL (3.5-5.0); Alkaline Phosphatase 65 U/L (35-104); Anion Gap 9 (5-15); BUN 7 mg/dL (4-19); BUN/Creat Ratio 8.0 RATIO (10-20); Calcium,Total 9.7 mg/dL (7.6-11.0); Carbon Dioxide 26.8 mmol/L (21.0-32.0); Chloride 105 mmol/L (98-108); Ferritin 64 ng/mL (22-378); Globulin 2.3 g/dL (2.2-4.2); Glucose 98 mg/dL (70-99); Iron 48 ug/dL (50-170); Iron Binding Capacity,Total 276 ug/dL (250-450); Iron Binding Capacity,Unsat 228 ug/dL (228-428); Potassium 4.8 mmol/L (3.3-5.1); Vitamin B12 1268 pg/mL (180-914); Vitamin D,25 Hydroxy 68.7 ng/mL (30-100)
== END | disposition home or self-care (01) ==
LOC: LAB 16:11
PROVIDERS: PCP Internal Medicine; Referring Provider Internal Medicine; Visit Provider Internal Medicine
DX: E46 Unspecified protein-calorie malnutrition (principal); D64.9 Anemia, unspecified
CPT/HCPCS: 36415; 80053; 82306; 82607; 82728; 83540; 83550; 85025